=== PATIENT | male | born 1955 | race American Indian/Alaskan Native ===

== ENCOUNTER 2021-04-30 01:16 | Inpatient (IN) | payer MEDICARE ==
[2021-04-30] MEDS ORDERED: SODIUM CHLORIDE 0.9% 1000 ML 1,000 ML IV ONE ×2 (01:48→04:50)
--- NOTE | 2021-04-30 01:51 | Emergency Department Report ---
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 Patient also has history of chronic alcoholism. Patient brought to the emergency room for evaluation of dizziness and possible alcohol intoxication. Patient denied any recent head injury. He denied any chest pain, shortness of breath, abdominal pain, nausea or vomiting. - Related Data Home Medications Medication Instructions Recorded Confirmed Last Taken Aspirin [Aspirin BABY CHEW TAB] 81 mg PO QDAY 03/08/20 03/08/20 Unknown AtorvaSTATin [Lipitor] 20 mg PO QHS 03/08/20 03/08/20 Unknown Chlorthalidone 50 mg PO QDAY 03/08/20 03/08/20 Unknown Ferrous Sulfate [Ferrous Sulfate 324 mg PO TID 03/08/20 03/08/20 Unknown 324 MG] Meloxicam [Mobic] 15 mg PO QDAY PRN 03/08/20 03/08/20 Unknown Tamsulosin [Flomax] 0.4 mg PO QDAY 03/08/20 03/08/20 Unknown amLODIPine 10 mg PO DAILY 03/08/20 03/08/20 Unknown Previous Rx's Medication Instructions Recorded Last Taken Type Folic Acid [Folvite] 1 mg PO QDAY #30 tablet 03/09/20 Unknown Rx Thiamine [Vitamin B-1] 100 mg PO QDAY #30 tablet 03/09/20 Unknown Rx Allergies Allergy/AdvReac Type Severity Reaction Status Date / Time No Known Allergies Allergy Unverified 10/16/18 16:26 ED Review of Systems ROS: Stated complaint: PAIN/HIGH POTASSIUM Other details as noted in HPI Comment: All other systems reviewed and negative Constitutional: denies: chills, fever Respiratory: denies: cough, shortness of breath, SOB with exertion Cardiovascular: denies: chest pain, palpitations Gastrointestinal: denies: abdominal pain, nausea, vomiting Neurological: denies: headache, weakness ED Past Medical Hx - Past Medical History Hx Hypertension: Yes Hx CVA: Yes (R sided deficits) Hx COPD: Yes Additional medical history: enlarged prostate - Surgical History Additional Surgical History: R knee - Social History Smoking Status: Current Every Day Smoker - Medications Home Medications: Home Medications Medication Instructions Recorded Confirmed Last Taken Type Aspirin [Aspirin BABY CHEW TAB] 81 mg PO QDAY 03/08/20 03/08/20 Unknown History AtorvaSTATin [Lipitor] 20 mg PO QHS 03/08/20 03/08/20 Unknown History Chlorthalidone 50 mg PO QDAY 03/08/20 03/08/20 Unknown History Ferrous Sulfate [Ferrous Sulfate 324 mg PO TID 03/08/20 03/08/20 Unknown History 324 MG] Meloxicam [Mobic] 15 mg PO QDAY PRN 03/08/20 03/08/20 Unknown History Tamsulosin [Flomax] 0.4 mg PO QDAY 03/08/20 03/08/20 Unknown History amLODIPine 10 mg PO DAILY 03/08/20 03/08/20 Unknown History Folic Acid [Folvite] 1 mg PO QDAY #30 tablet 03/09/20 Unknown Rx Thiamine [Vitamin B-1] 100 mg PO QDAY #30 tablet 03/09/20 Unknown Rx ED Physical Exam - General Limitations: Physical Limitation General appearance: alert, in no apparent distress, appears intoxicated - Head Head exam: Present: atraumatic, normocephalic, normal inspection - Eye Eye exam: Present: normal appearance, PERRL - ENT ENT exam: Present: normal exam, normal orophraynx, mucous membranes moist - Neck Neck exam: Present: normal inspection, full ROM. Absent: tenderness, meningismus - Respiratory Respiratory exam: Present: normal lung sounds bilaterally - Cardiovascular Cardiovascular Exam: Present: regular rate, normal rhythm, normal heart sounds - GI/Abdominal GI/Abdominal exam: Present: soft, normal bowel sounds. Absent: distended, tenderness, guarding, rebound, rigid, organomegaly, mass, bruit, pulsatile mass, hernia - Back Exam Back exam: Present: normal inspection, full ROM. Absent: CVA tenderness (R), CVA tenderness (L) - Neurological Exam Neurological exam: Present: alert, oriented X3, CN II-XII intact - Psychiatric Psychiatric exam: Present: normal mood. Absent: homicidal ideation, suicidal ideation - Skin Skin exam: Present: warm, intact, normal color ED Course Vital Signs 04/30/21 04/30/21 04/30/21 01:47 02:00 02:30 Pulse Rate 62 50 L Respiratory 17 13 Rate Blood Pressure 101/46 79/46 O2 Sat by Pulse 94 99 100 Oximetry 04/30/21 02:54 Pulse Rate Respiratory 16 Rate Blood Pressure O2 Sat by Pulse Oximetry ED Medical Decision Making - Lab Data Result diagrams: 04/30/21 01:55 04/30/21 01:55 - EKG Data EKG shows normal: sinus rhythm Rate: normal - EKG Data Interpretation: no acute changes - Radiology Data Radiology results: report reviewed - Medical Decision Making Patient is 65 years old male with history of hypertension, 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 Patient also has history of chronic alcoholism. Patient brought to the emergency room for evaluation of dizziness and possible alcohol intoxication. Patient denied any recent head injury. He denied any chest pain, shortness of breath, abdominal pain, nausea or vomiting. Patient had 1 episode of blood pressure of 79/42. Labs reviewed and showed elevated creatinine of 2.2 his previous creatinine was 1.5. This may be due to dehydration. Patient received normal saline at this moment. I discussed the patient with Dr. Garcia, he agreed to admit the patient to medical service for further management. Critical care attestation.: If time is entered above; I have spent that time in minutes in the direct care of this critically ill patient, excluding procedure time. ED Disposition Clinical Impression: Alcohol abuse, Acute renal failure, Dehydration Disposition: OP ADMIT IP TO THIS HOSP Is pt being admited?: Yes Condition: Stable
--- NOTE | 2021-04-30 02:18 | XRay Report ---
CHEST 1 VIEW INDICATION / CLINICAL INFORMATION: Lightheadedness/Dizziness. Impression: The upper lungs are clear. The lower lungs cannot be evaluated secondary to the patient's hands overlying the [id number]. Signer Name: Calos Hernández MD Signed: 04/30/2021 2:14 AM Workstation Name: [id number]
[2021-04-30 02:27] LABS: Basophils % (Auto) 0.7 % (0.0-1.8); Eosinophils # (Auto) 0.1 K/mm3 (0.0-0.4); Eosinophils % (Auto) 1.7 % (0.0-4.3); Hematocrit 29.4 % (35.5-45.6); Hemoglobin 9.7 gm/dl (11.8-15.2); Lymphocytes # (Auto) 1.2 K/mm3 (1.2-5.4); Lymphocytes % (Auto) 20.6 % (13.4-35.0); Mean Corpuscular HGB Conc 33 % (32-34); Mean Corpuscular Volume 84 fl (84-94); Monocytes # (Auto) 0.4 K/mm3 (0.0-0.8); Monocytes % (Auto) 7.7 % (0.0-7.3); Platelet Count 181 K/mm3 (140-440); Red Blood Count 3.53 M/mm3 (3.65-5.03)
[2021-04-30 02:30] LABS: Calcium 8.2 mg/dL (8.4-10.2)
[2021-04-30 02:35] LABS: Alanine Aminotransferase 9 units/L (7-56); Albumin 3.8 g/dL (3.9-5)
[2021-04-30 02:40] LABS: Bilirubin,Direct < 0.2 mg/dL (0-0.2)
[2021-04-30 03:17] LABS: Chol/HDL Ratio 1.74 %
[2021-04-30] MEDS ORDERED: ALUM-MAG HYDROXIDE-SIMETHICONE 200-200-20MG/5ML ORAL LIQD 30 ML PO PRN (05:22)
[2021-04-30] MEDS ORDERED: ONDANSETRON 4 MG/2 ML INJ IV PRN (05:22)
[2021-04-30] MEDS ORDERED: MAGNESIUM HYDROXIDE (MOM) ORAL LIQD UDC PO PRN (05:22)
[2021-04-30] MEDS ORDERED: SENNOSIDES 8.6 MG TAB PO PRN (05:22)
[2021-04-30] MEDS ORDERED: METOCLOPRAMIDE 10 MG/2 ML INJ IV PRN (05:22)
[2021-04-30] MEDS ORDERED: ACETAMINOPHEN 325 MG TAB PO PRN (05:22)
--- NOTE | 2021-04-30 05:34 | History and Physical Report ---
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 Patient also has history of chronic alcoholism. Patient brought to the emergency room for evaluation of dizziness and possible alcohol intoxication. Patient denied any recent head injury. He denied any chest pain, shortness of breath, abdominal pain, nausea or vomiting ED work-up shows WBC 5.6, hemoglobin 9.7 platelets 181, potassium 5.6, creatinine 2.2, sodium 137, calcium 8.2, troponin 0 0.059, albumin 3.8. Checks x-ray done no acute finding. Patient is seen at bedside in the ED patient is alert oriented x3. Patient reports dizziness. Patient denies tobacco use and illicit drug use. Reviewed lab medication record and vital signs. Patient creatinine elevated likely secondary to dehydration due to alcoholism. Patient placed on alcohol withdrawal protocol. IV hydration started including thiamine iron and multivitamin supplement. Photographic Reproduction Technician consulted secondary to acute kidney injury. Renal ultrasound ordered we will follow-up with results. Potassium elevated K oxalate given. Will follow up with potassium level. Past History Past Surgical History: No surgical history Social history: no significant social history Family history: no significant family history Medications and Allergies Allergies Allergy/AdvReac Type Severity Reaction Status Date / Time No Known Allergies Allergy Unverified 10/16/18 16:26 Home Medications Medication Instructions Recorded Confirmed Last Taken Type Aspirin [Aspirin BABY CHEW TAB] 81 mg PO QDAY 03/08/20 03/08/20 Unknown History AtorvaSTATin [Lipitor] 20 mg PO QHS 03/08/20 03/08/20 Unknown History Chlorthalidone 50 mg PO QDAY 03/08/20 03/08/20 Unknown History Ferrous Sulfate [Ferrous Sulfate 324 mg PO TID 03/08/20 03/08/20 Unknown History 324 MG] Meloxicam [Mobic] 15 mg PO QDAY PRN 03/08/20 03/08/20 Unknown History Tamsulosin [Flomax] 0.4 mg PO QDAY 03/08/20 03/08/20 Unknown History amLODIPine 10 mg PO DAILY 03/08/20 03/08/20 Unknown History Folic Acid [Folvite] 1 mg PO QDAY #30 tablet 03/09/20 Unknown Rx Thiamine [Vitamin B-1] 100 mg PO QDAY #30 tablet 03/09/20 Unknown Rx Active Meds: Active Medications Acetaminophen (Acetaminophen 325 Mg Tab) 650 mg PO Q4H PRN PRN Reason: Pain MILD(1-3)/Fever >100.5/GENTILE Al Hydrox/Mg Hydrox/Simethicone (Alum-Mag Hydroxide-Simethicone [id number]/5ml Oral Liqd 30 Ml) 30 ml PO Q4H PRN PRN Reason: Indigestion Sodium Chloride (Nacl 0.9% 1000 Ml) 1,000 mls @ 999 mls/hr IV BOLUS ONE Stop: 04/30/21 05:50 Magnesium Hydroxide (Magnesium Hydroxide (Mom) Oral Liqd Udc) 30 ml PO Q4H PRN PRN Reason: Constipation Metoclopramide HCl (Metoclopramide 10 Mg/2 Ml Inj) 10 mg IV Q6H PRN PRN Reason: Nausea And Vomiting Ondansetron HCl (Ondansetron 4 Mg/2 Ml Inj) 4 mg IV Q8H PRN PRN Reason: Nausea And Vomiting Senna (Sennosides 8.6 Mg Tab) 8.6 mg PO Q12HR PRN PRN Reason: Constipation Sodium Chloride (Sodium Chloride 0.9% 10 Ml Flush Syringe) 10 ml IV BID MISHA Sodium Chloride (Sodium Chloride 0.9% 10 Ml Flush Syringe) 10 ml IV PRN PRN PRN Reason: LINE FLUSH Review of Systems Constitutional: weakness Ears, nose, mouth and throat: no epistaxis, no bleeding gums Cardiovascular: lightheadedness Gastrointestinal: no melena Rectal: no hemorrhoids Integumentary: no rash, no pruritis Neurological: no head injury Psychiatric: anxiety, depression Hematologic/Lymphatic: no easy bruising, no easy bleeding Allergic/Immunologic: no urticaria, no allergic rhinitis Exam - Constitutional Vitals: Temp Pulse Resp BP Pulse Ox 58 L 15 118/60 100 04/30/21 05:00 04/30/21 05:00 04/30/21 05:00 04/30/21 05:00 General appearance: Present: mild distress, well-nourished - EENT Eyes: Present: PERRL ENT: hearing intact, clear oral mucosa - Neck Neck: Present: supple, normal ROM - Respiratory Respiratory effort: normal Respiratory: bilateral: CTA - Cardiovascular Heart Sounds: Present: S1 & S2. Absent: rub, click - Extremities Extremities: pulses symmetrical, No edema Peripheral Pulses: within normal limits - Abdominal General gastrointestinal: Present: soft, non-tender, non-distended, normal bowel sounds Male genitourinary: Present: normal - Integumentary Integumentary: Present: clear, warm, dry - Musculoskeletal Musculoskeletal: strength equal bilaterally, generalized weakness - Psychiatric Psychiatric: appropriate mood/affect, intact judgment & insight, cooperative - Neurologic Neurologic: CNII-XII intact, moves all extremities - Allied Health Allied health notes reviewed: nursing HEART Score - HEART Score Troponin: Troponin T 0.059 ng/mL (0.00-0.029) H 04/30/21 01:55 Results - Labs CBC & Chem 7: 04/30/21 01:55 04/30/21 01:55 Labs: Abnormal lab results 04/30/21 04/30/21 04/30/21 Range/Units 01:55 01:55 01:55 RBC 3.53 L (3.65-5.03) M/mm3 Hgb 9.7 L (11.8-15.2) gm/dl Hct 29.4 L (35.5-45.6) % [place] % (Auto) 7.7 H (0.0-7.3) % Potassium 5.6 H (3.6-5.0) mmol/L BUN 32 H (9-20) mg/dL Creatinine 2.2 H (0.8-1.3) mg/dL Calcium 8.2 L (8.4-10.2) mg/dL Troponin T 0.059 H (0.00-0.029) ng/mL Albumin (3.9-5) g/dL HDL Cholesterol 74 H (40-59) mg/dL Plasma/Serum Alcohol 0.16 H (0-0.07) % 04/30/21 Range/Units 01:55 RBC (3.65-5.03) M/mm3 Hgb (11.8-15.2) gm/dl Hct (35.5-45.6) % [place] % (Auto) (0.0-7.3) % Potassium (3.6-5.0) mmol/L BUN (9-20) mg/dL Creatinine (0.8-1.3) mg/dL Calcium (8.4-10.2) mg/dL Troponin T (0.00-0.029) ng/mL Albumin 3.8 L (3.9-5) g/dL HDL Cholesterol (40-59) mg/dL Plasma/Serum Alcohol (0-0.07) % Assessment and Plan - Patient Problems (1) Acute renal failure Current Visit: Yes Status: Acute Plan to address problem: Monitor Kidney function Continue IV hydration Renal US-f/u with result Consulted roller operator-Dr Alarcon (2) Dehydration Current Visit: Yes Status: Acute Plan to address problem: Likely 2/2 to alcohol use Continue IV hydration (3) Anemia Current Visit: Yes Status: Acute Plan to address problem: Monitor H/H will transfused PRBCs if H/H <7 iron and MVI supplement (4) Hyperkalemia Current Visit: No Status: Acute Plan to address problem: Kayexalate Monitor potassium level (5) Alcohol abuse Current Visit: Yes Status: Acute Plan to address problem: Continue CIWA protocol Ferrous, thiamin, and MVI supplement Will start [place] and d/c oral supplement if needed Patient alert and oriented but irritable presently (6) DVT prophylaxis Current Visit: Yes Status: Acute Plan to address problem: heparin
[2021-04-30] MEDS ORDERED: HALOPERIDOL LACTATE 5 MG/1 ML INJ IV PRN (06:07)
[2021-04-30] MEDS ORDERED: LORazepam 2 MG/ML VIAL IV PRN (06:07)
[2021-04-30] MEDS ORDERED: SODIUM POLYSTYRENE 15 GM/60 ML ORAL LIQD PO ONE (06:13)
[2021-04-30] MEDS ORDERED: SODIUM CHLORIDE 0.9% 1000 ML 1,000 ML IV SCH (06:15)
[2021-04-30 08:47] LABS: Calcium 8.2 mg/dL (8.4-10.2)
--- NOTE | 2021-04-30 09:19 | Consultation ---
History of Present Illness - Reason for Consult Consult date: 04/30/21 acute renal failure, hyperkalemia - History of Present Illness The patient is a 65 YO male with history significant for Hypertension, CVA in 1994 with residual R sided weakness, Tobacco use, Alcohol use and CKD stage 3 who brought to [facility] ED 04/30 for evaluation of dizziness and possible alcohol intoxication. Patient is a poor historian. Per patient he has been feeling dizzy and about to fall. He denies any head injury, syncope, chest pain, shortness of breath, abdominal pain, nausea, vomiting, diarrhea, leg swelling, fever or chills. ED work-up showed WBC 5.6, Hb 9.7 Platelets 181, Potassium 5.6, Creatinine 2.2, sodium 137, calcium 8.2, troponin 0 0.059, albumin 3.8. Alcohol level 0.16. Chest x-ray with no acute finding. Patient was admitted with alcohol intoxication, JUAN and hyperkalemia. Nephrology was consulted for further evaluation of acute kidney injury. Past History Past Medical History: other (See HPI.) Past Surgical History: No surgical history Social history: no significant social history Family history: no significant family history Medications and Allergies Allergies Allergy/AdvReac Type Severity Reaction Status Date / Time No Known Allergies Allergy Unverified 10/16/18 16:26 Home Medications Medication Instructions Recorded Confirmed Last Taken Type Aspirin [Aspirin BABY CHEW TAB] 81 mg PO QDAY 03/08/20 04/30/21 1 Day Ago History ~04/29/21 AtorvaSTATin [Lipitor] 20 mg PO QHS 03/08/20 04/30/21 1 Day Ago History ~04/29/21 Chlorthalidone 50 mg PO QDAY 03/08/20 04/30/21 1 Day Ago History ~04/29/21 Ferrous Sulfate [Ferrous Sulfate 324 mg PO TID 03/08/20 04/30/21 1 Day Ago History 324 MG] ~04/29/21 Tamsulosin [Flomax] 0.4 mg PO QDAY 03/08/20 04/30/21 1 Day Ago History ~04/29/21 amLODIPine 10 mg PO DAILY 03/08/20 04/30/21 1 Day Ago History ~04/29/21 Folic Acid [Folvite] 1 mg PO QDAY #30 tablet 03/09/20 04/30/21 1 Day Ago Rx ~04/29/21 Thiamine [Vitamin B-1] 100 mg PO QDAY #30 tablet 03/09/20 04/30/21 1 Day Ago Rx ~04/29/21 Active Meds: Active Medications Acetaminophen (Acetaminophen 325 Mg Tab) 650 mg PO Q4H PRN PRN Reason: Pain MILD(1-3)/Fever >100.5/GENTILE Al Hydrox/Mg Hydrox/Simethicone (Alum-Mag Hydroxide-Simethicone [id number]/5ml Oral Liqd 30 Ml) 30 ml PO Q4H PRN PRN Reason: Indigestion Ferrous Sulfate (Ferrous Sulfate 325 Mg Tab) 325 mg PO BID MISHA Haloperidol Lactate (Haloperidol Lactate 5 Mg/1 Ml Inj) 5 mg IV Q1H PRN PRN Reason: Unrespon. to mult. doses BZD's Heparin Sodium (Porcine) (Heparin 5,000 Unit/1 Ml Vial) 5,000 unit SUB-Q Q12HR MISHA Sodium Chloride (Nacl 0.9% 1000 Ml) 1,000 mls @ 100 mls/hr IV DIRECT MISHA Lorazepam (Lorazepam 2 Mg/Ml Vial) 2 mg IV Q1H PRN PRN Reason: CIWA-Ar 8-15 Magnesium Hydroxide (Magnesium Hydroxide (Mom) Oral Liqd Udc) 30 ml PO Q4H PRN PRN Reason: Constipation Metoclopramide HCl (Metoclopramide 10 Mg/2 Ml Inj) 5 mg IV Q6H PRN PRN Reason: Nausea And Vomiting Multivitamins (Multivitamins ,Therapeutic Tab) 1 each PO QDAY [facility] Ondansetron HCl (Ondansetron 4 Mg/2 Ml Inj) 4 mg IV Q8H PRN PRN Reason: Nausea And Vomiting Senna (Sennosides 8.6 Mg Tab) 8.6 mg PO Q12HR PRN PRN Reason: Constipation Sodium Chloride (Sodium Chloride 0.9% 10 Ml Flush Syringe) 10 ml IV BID MISHA Sodium Chloride (Sodium Chloride 0.9% 10 Ml Flush Syringe) 10 ml IV PRN PRN PRN Reason: LINE FLUSH Thiamine HCl (Thiamine 100 Mg Tab) 100 mg PO QDAY [facility] Review of Systems Constitutional: weight loss, no fever, no chills, no weakness Cardiovascular: lightheadedness, high blood pressure, no chest pain, no edema, no syncope, no shortness of breath Respiratory: no cough Gastrointestinal: no abdominal pain, no nausea, no vomiting, no diarrhea, no melena Genitourinary Male: no dysuria, no hematuria Integumentary: no sores, no wounds Neurological: weakness (chronic), no seizures, no syncope, no convulsions, no aphasia, no change in speech, no change in mentation, no confusion Exam - Vital Signs Vital signs: Vital Signs Pulse Ox 94 04/30/21 01:47 Results - Lab Results 04/30/21 01:55 04/30/21 01:55 Most recent lab results Calcium 8.2 mg/dL (8.4-10.2) L 04/30/21 08:16 Phosphorus 3.80 mg/dL (2.5-4.5) 04/30/21 08:16 Magnesium 1.40 mg/dL (1.7-2.3) L 04/30/21 08:16 Assessment and Plan 1. Acute kidney injury: Vasomotor JUAN superimposed on CKD in the setting of volume depletion. Renal US negative. Urine studies ordered. Continue IV fluids. Monitor renal function. Avoid nephrotoxic agents. Meds dosage based on GFR. 2. FEN: Hyperkalemia, Kayexalate, monitor. Monitor lytes and volume status. 3. Alcohol intoxication: IV fluids. Follow lytes. CIWA protocol. Counseling. 4. Hypertension: BP controlled. 5. Anemia, POA: Monitor. 6. Tobacco smoking: Counseled. Subjective: Patient was seen and examined at the bedside. Examination: General appearance: well-developed, appears stated age, emaciated, no distress HEENT: ATNC, ASHLEE Neck: trachea midline Respiratory: Clear to Auscultation Heart: regular, S1S2, no murmur Gastrointestinal: soft, normoactive bowel sounds, not tender, not distended Integumentary: no rash Neurologic: alert, able to move extremities, extensive muscle wasting noted Ext: no edema
--- NOTE | 2021-04-30 09:20 | Progress Note ---
Assessment and Plan Assessment and plan: Acute renal failure secondary to vasomotor nephropathy Hyperkalemia EtOH abuse 04/30/2021. Follow-up renal ultrasound. Await nephrology consultation. Continue IV fluid hydration. Continue CIWA protocol. History Interval history: No new issues overnight Hospitalist Physical - Constitutional Vitals: Temp Pulse Resp BP Pulse Ox 56 L 12 103/57 100 04/30/21 07:38 04/30/21 07:38 04/30/21 07:00 04/30/21 07:38 General appearance: Present: mild distress, well-nourished - EENT Eyes: Present: PERRL, EOM intact ENT: hearing intact, clear oral mucosa, dentition normal - Neck Neck: Present: supple, normal ROM - Respiratory Respiratory effort: normal Respiratory: bilateral: CTA - Cardiovascular Rhythm: regular Heart Sounds: Present: S1 & S2. Absent: gallop, rub - Extremities Extremities: no ischemia, No edema, Full ROM - Abdominal General gastrointestinal: soft, non-tender, non-distended, normal bowel sounds - Integumentary Integumentary: Present: clear, warm, dry - Neurologic Neurologic: CNII-XII intact, moves all extremities HEART Score - HEART Score Troponin: Troponin T 0.059 ng/mL (0.00-0.029) H 04/30/21 01:55 Results - Labs CBC & Chem 7: 04/30/21 01:55 04/30/21 01:55 Labs: Laboratory Last Values WBC 5.6 K/mm3 (4.5-11.0) 04/30/21 01:55 RBC 3.53 M/mm3 (3.65-5.03) L 04/30/21 01:55 Hgb 9.7 gm/dl (11.8-15.2) L 04/30/21 01:55 Hct 29.4 % (35.5-45.6) L 04/30/21 01:55 MCV 84 fl (84-94) 04/30/21 01:55 MCH 28 pg (28-32) 04/30/21 01:55 MCHC 33 % (32-34) 04/30/21 01:55 RDW 15.0 % (13.2-15.2) 04/30/21 01:55 Plt Count 181 K/mm3 (140-440) 04/30/21 01:55 Lymph % (Auto) 20.6 % (13.4-35.0) 04/30/21 01:55 [place] % (Auto) 7.7 % (0.0-7.3) H 04/30/21 01:55 Eos % (Auto) 1.7 % (0.0-4.3) 04/30/21 01:55 Baso % (Auto) 0.7 % (0.0-1.8) 04/30/21 01:55 Lymph # (Auto) 1.2 K/mm3 (1.2-5.4) 04/30/21 01:55 [place] # (Auto) 0.4 K/mm3 (0.0-0.8) 04/30/21 01:55 Eos # (Auto) 0.1 K/mm3 (0.0-0.4) 04/30/21 01:55 Baso # (Auto) 0.0 K/mm3 (0.0-0.1) 04/30/21 01:55 Seg Neutrophils % 69.3 % (40.0-70.0) 04/30/21 01:55 Seg Neutrophils # 3.9 K/mm3 (1.8-7.7) 04/30/21 01:55 Sodium 137 mmol/L (137-145) 04/30/21 01:55 Potassium 5.6 mmol/L (3.6-5.0) H 04/30/21 01:55 Chloride 105.1 mmol/L (98-107) 04/30/21 01:55 Carbon Dioxide 23 mmol/L (22-30) 04/30/21 01:55 Anion Gap 15 mmol/L 04/30/21 01:55 BUN 32 mg/dL (9-20) H 04/30/21 01:55 Creatinine 2.2 mg/dL (0.8-1.3) H 04/30/21 01:55 Estimated GFR 37 ml/min 04/30/21 01:55 BUN/Creatinine Ratio 15 % 04/30/21 01:55 Glucose 99 mg/dL (75-100) 04/30/21 01:55 Hemoglobin A1c 5.9 % (4-6) 04/30/21 05:35 Calcium 8.2 mg/dL (8.4-10.2) L 04/30/21 08:16 Phosphorus 3.80 mg/dL (2.5-4.5) 04/30/21 08:16 Magnesium 1.40 mg/dL (1.7-2.3) L 04/30/21 08:16 Total Bilirubin 0.20 mg/dL (0.1-1.2) 04/30/21 01:55 Direct Bilirubin < 0.2 mg/dL (0-0.2) 04/30/21 01:55 Indirect Bilirubin 0.0 mg/dL 04/30/21 01:55 AST 17 units/L (5-40) 04/30/21 01:55 ALT 9 units/L (7-56) 04/30/21 01:55 Alkaline Phosphatase 80 units/L (35-129) 04/30/21 01:55 Troponin T 0.059 ng/mL (0.00-0.029) H 04/30/21 01:55 Total Protein 7.0 g/dL (6.3-8.2) 04/30/21 01:55 Albumin 3.8 g/dL (3.9-5) L 04/30/21 01:55 Albumin/Globulin Ratio 1.2 % 04/30/21 01:55 Triglycerides 114 mg/dL (2-149) 04/30/21 01:55 Cholesterol 129 mg/dL (50-199) 04/30/21 01:55 LDL Cholesterol Direct 51 mg/dL (50-130) 04/30/21 01:55 HDL Cholesterol 74 mg/dL (40-59) H 04/30/21 01:55 Cholesterol/HDL Ratio 1.74 % 04/30/21 01:55 Plasma/Serum Alcohol 0.16 % (0-0.07) H 04/30/21 01:55 Active Medications - Current Medications Current Medications: Generic Name Dose Route Start Last Admin Trade Name Freq PRN Reason Stop Dose Admin Acetaminophen 650 mg 04/30/21 05:22 Acetaminophen 325 Mg Tab PO Q4H PRN Pain MILD(1-3)/Fever >100.5/GENTILE Al Hydrox/Mg Hydrox/Simethicone 30 ml 04/30/21 05:22 Alum-Mag Hydroxide-Simethicone [id number]/5ml Oral Liqd 30 Ml PO Q4H PRN Indigestion Ferrous Sulfate 325 mg 04/30/21 10:00 Ferrous Sulfate 325 Mg Tab PO BID [facility] Haloperidol Lactate 5 mg 04/30/21 06:07 Haloperidol Lactate 5 Mg/1 Ml Inj IV Q1H PRN Unrespon. to mult. doses BZD's Heparin Sodium (Porcine) 5,000 unit 04/30/21 10:00 Heparin 5,000 Unit/1 Ml Vial SUB-Q Q12HR [facility] Sodium Chloride 1,000 mls @ 100 mls/hr 04/30/21 06:15 Nacl 0.9% 1000 Ml IV DIRECT MISHA Lorazepam 2 mg 04/30/21 06:07 Lorazepam 2 Mg/Ml Vial IV Q1H PRN CIWA-Ar 8-15 Magnesium Hydroxide 30 ml 04/30/21 05:22 Magnesium Hydroxide (Mom) Oral Liqd Udc PO Q4H PRN Constipation Metoclopramide HCl 5 mg 04/30/21 05:22 Metoclopramide 10 Mg/2 Ml Inj IV Q6H PRN Nausea And Vomiting Multivitamins 1 each 04/30/21 10:00 Multivitamins ,Therapeutic Tab PO QDAY [facility] Ondansetron HCl 4 mg 04/30/21 05:22 Ondansetron 4 Mg/2 Ml Inj IV Q8H PRN Nausea And Vomiting Senna 8.6 mg 04/30/21 05:22 Sennosides 8.6 Mg Tab PO Q12HR PRN Constipation Sodium Chloride 10 ml 04/30/21 10:00 Sodium Chloride 0.9% 10 Ml Flush Syringe IV BID MISHA Sodium Chloride 10 ml 04/30/21 05:22 Sodium Chloride 0.9% 10 Ml Flush Syringe IV PRN PRN LINE FLUSH Thiamine HCl 100 mg 04/30/21 10:00 Thiamine 100 Mg Tab PO QDAY [facility]
[2021-04-30] MEDS ORDERED: MAGNESIUM SULFATE 2 GM/50 ML BAG IV ONE (11:00)
--- NOTE | 2021-04-30 13:22 | Electrocardiograph Report ---
[facility] Test Date: 2021-04-30 Test Time: 02:15:07 Pat Name: ROXI MURILLO Department: Room: A489 Gender: M Communications Technologist: PETRA : 1955 Requested By: SUKH AVALOS Order Number: [id number] Reading MD: Felice Lorenzo Measurements Intervals [place] Rate: 57 P: SC: QRS: 72 QRSD: 83 T: 84 QT: 466 QTc: 456 Interpretive Statements Atrial fibrillation Consider left ventricular hypertrophy Nonspecific T abnormalities, lateral leads ST elevation, consider lateral injury No previous ECG available for comparison Electronically Signed On 04-30-2021 13:21:37 EDT by Felice Lorenzo
[2021-04-30] MEDS: MULTIVITAMINS ,THERAPEUTIC TAB PO SCH (18:16)
[2021-04-30] MEDS: HEPARIN 5,000 UNIT/1 ML VIAL SUB-Q SCH ×2 (18:16→21:12)
[2021-04-30] MEDS: FERROUS SULFATE 325 MG TAB PO SCH ×2 (18:16→21:12)
[2021-04-30] MEDS: THIAMINE 100 MG TAB PO SCH (18:17)
--- NOTE | 2021-04-30 20:45 | Ultrasound Report ---
ULTRASOUND RENAL INDICATION: maria elena. COMPARISON: No relevant prior imaging study available. FINDINGS: RIGHT KIDNEY: Size: 7.9 cm. Echogenicity: Echogenic. Cortical thickness: 0.9. Hydronephrosis: None. Cyst or mass: None. Stones: None. LEFT KIDNEY: Size: 8.5 cm. Echogenicity: Echogenic. Cortical thickness: 1.1. Hydronephrosis: None. Cyst or mass: None. Stones: None. Urinary Bladder: No significant abnormality. Free Fluid: None. Additional Findings: None. IMPRESSION 1. Small echogenic kidneys characteristic for chronic medical renal disease. No hydronephrosis. Signer Name: Mendel Luna MD Signed: 04/30/2021 8:41 PM Workstation Name: [id number]
[2021-04-30 21:51] LABS: Bilirubin,Urine NEG (Negative); Blood,Urine NEG (Negative); Color,Urine Yellow (Yellow); Protein,Urine <15 mg/dL mg/dL (Negative); Urobilinogen,Urine < 2.0 mg/dL (<2.0)
[2021-04-30 21:52] LABS: Creatinine,Urine 68.8 mg/dL (0.1-20.0)
[2021-04-30 21:56] LABS: Amphetamine Screen,Urine PRESUMPTIVE NEGATIVE; Benzodiazepines Screen,Urine PRESUMPTIVE NEGATIVE; Cannabinoid Screen,Urine PRESUMPTIVE POSITIVE; Cocaine Screen,Urine PRESUMPTIVE NEGATIVE; Methadone Screen,Urine PRESUMPTIVE NEGATIVE; Opiate Screen,Urine PRESUMPTIVE NEGATIVE
[2021-05-01 06:11] LABS: Hemoglobin 9.9 gm/dl (11.8-15.2); Mean Corpuscular HGB Conc 34 % (32-34); Mean Corpuscular Volume 82 fl (84-94); Platelet Count 160 K/mm3 (140-440); Red Blood Count 3.55 M/mm3 (3.65-5.03); Red Cell Distribution Width 14.8 % (13.2-15.2)
[2021-05-01 06:36] LABS: Alanine Aminotransferase 7 units/L (7-56); Albumin 3.1 g/dL (3.9-5)
[2021-05-01 06:37] LABS: Bilirubin,Direct < 0.2 mg/dL (0-0.2)
[2021-05-01 07:44] LABS: Albumin 3.1 g/dL (3.9-5); Calcium 8.9 mg/dL (8.4-10.2)
--- NOTE | 2021-05-01 08:28 | Progress Note ---
Assessment and Plan Assessment and plan: Acute kidney injury on CKD secondary to vasomotor nephropathy Hyperkalemia EtOH abuse 04/30/2021. Follow-up renal ultrasound. Await nephrology consultation. Continue IV fluid hydration. Continue CIWA protocol. 05/01/2021. Renal ultrasound negative. Follow-up urine studies. Continue IV fluids per nephrology recommendations. Creatinine has improved to 1.5. Continue CIWA protocol. However, patient still with hyperkalemia with potassium of 6.1. Nephrology ordered Kayexalate. Follow-up repeat BMP. History Interval history: No new issues overnight Hospitalist Physical - Constitutional Vitals: Temp Pulse Resp BP Pulse Ox 98.2 F 59 L 16 126/70 94 05/01/21 05:03 05/01/21 07:37 05/01/21 05:03 05/01/21 05:03 05/01/21 05:03 General appearance: Present: mild distress, well-nourished - EENT Eyes: Present: PERRL, EOM intact ENT: hearing intact, clear oral mucosa, dentition normal - Neck Neck: Present: supple, normal ROM - Respiratory Respiratory effort: normal Respiratory: bilateral: CTA - Cardiovascular Rhythm: regular Heart Sounds: Present: S1 & S2. Absent: gallop, rub - Extremities Extremities: no ischemia, No edema, Full ROM - Abdominal General gastrointestinal: soft, non-tender, non-distended, normal bowel sounds - Integumentary Integumentary: Present: clear, warm, dry - Neurologic Neurologic: CNII-XII intact, moves all extremities HEART Score - HEART Score Troponin: Troponin T 0.059 ng/mL (0.00-0.029) H 04/30/21 01:55 Results - Labs CBC & Chem 7: 05/01/21 05:46 05/01/21 05:46 Labs: Laboratory Last Values WBC 6.5 K/mm3 (4.5-11.0) 05/01/21 05:46 RBC 3.55 M/mm3 (3.65-5.03) L 05/01/21 05:46 Hgb 9.9 gm/dl (11.8-15.2) L 05/01/21 05:46 Hct 29.0 % (35.5-45.6) L 05/01/21 05:46 MCV 82 fl (84-94) L 05/01/21 05:46 MCH 28 pg (28-32) 05/01/21 05:46 MCHC 34 % (32-34) 05/01/21 05:46 RDW 14.8 % (13.2-15.2) 05/01/21 05:46 Plt Count 160 K/mm3 (140-440) 05/01/21 05:46 Lymph % (Auto) 20.6 % (13.4-35.0) 04/30/21 01:55 Morrison % (Auto) 7.7 % (0.0-7.3) H 04/30/21 01:55 Eos % (Auto) 1.7 % (0.0-4.3) 04/30/21 01:55 Baso % (Auto) 0.7 % (0.0-1.8) 04/30/21 01:55 Lymph # (Auto) 1.2 K/mm3 (1.2-5.4) 04/30/21 01:55 Morrison # (Auto) 0.4 K/mm3 (0.0-0.8) 04/30/21 01:55 Eos # (Auto) 0.1 K/mm3 (0.0-0.4) 04/30/21 01:55 Baso # (Auto) 0.0 K/mm3 (0.0-0.1) 04/30/21 01:55 Seg Neutrophils % 69.3 % (40.0-70.0) 04/30/21 01:55 Seg Neutrophils # 3.9 K/mm3 (1.8-7.7) 04/30/21 01:55 Sodium 135 mmol/L (137-145) L 05/01/21 05:46 Potassium 5.6 mmol/L (3.6-5.0) H 04/30/21 01:55 Chloride 104.9 mmol/L (98-107) 05/01/21 05:46 Carbon Dioxide 25 mmol/L (22-30) 05/01/21 05:46 Anion Gap 11 mmol/L 05/01/21 05:46 BUN 27 mg/dL (9-20) H 05/01/21 05:46 Creatinine 1.5 mg/dL (0.8-1.3) H 05/01/21 05:46 Estimated GFR 57 ml/min 06/28/21 05:46 BUN/Creatinine Ratio 18 % 05/01/21 05:46 Glucose 79 mg/dL (75-100) 05/01/21 05:46 Hemoglobin A1c 5.9 % (4-6) 04/30/21 05:35 Calcium 8.9 mg/dL (8.4-10.2) 05/01/21 05:46 Phosphorus 3.80 mg/dL (2.5-4.5) 04/30/21 08:16 Magnesium 1.60 mg/dL (1.7-2.3) L 05/01/21 05:46 Total Bilirubin 0.30 mg/dL (0.1-1.2) 05/01/21 05:46 Total Bilirubin 0.30 mg/dL (0.1-1.2) 05/01/21 05:46 Direct Bilirubin < 0.2 mg/dL (0-0.2) 05/01/21 05:46 Indirect Bilirubin 0.1 mg/dL 05/01/21 05:46 AST 14 units/L (5-40) 05/01/21 05:46 AST 15 units/L (5-40) 05/01/21 05:46 ALT 7 units/L (7-56) 05/01/21 05:46 ALT 9 units/L (7-56) 05/01/21 05:46 Alkaline Phosphatase 79 units/L (35-129) 05/01/21 05:46 Alkaline Phosphatase 80 units/L (35-129) 05/01/21 05:46 Troponin T 0.059 ng/mL (0.00-0.029) H 04/30/21 01:55 Total Protein 6.2 g/dL (6.3-8.2) L 05/01/21 05:46 Total Protein 6.6 g/dL (6.3-8.2) 05/01/21 05:46 Albumin 3.1 g/dL (3.9-5) L 05/01/21 05:46 Albumin 3.1 g/dL (3.9-5) L 05/01/21 05:46 Albumin/Globulin Ratio 0.9 % 05/01/21 05:46 Albumin/Globulin Ratio 1.0 % 05/01/21 05:46 Triglycerides 114 mg/dL (2-149) 04/30/21 01:55 Cholesterol 129 mg/dL (50-199) 04/30/21 01:55 LDL Cholesterol Direct 51 mg/dL (50-130) 04/30/21 01:55 HDL Cholesterol 74 mg/dL (40-59) H 04/30/21 01:55 Cholesterol/HDL Ratio 1.74 % 04/30/21 01:55 Urine Color Yellow (Yellow) 04/30/21 21:37 Urine Turbidity Clear (Clear) 04/30/21 21:37 Urine pH 7.0 (5.0-7.0) 04/30/21 21:37 Ur Specific [place] 1.011 (1.003-1.030) 04/30/21 21:37 Urine Protein <15 mg/dl mg/dL (Negative) 04/30/21 21:37 Urine Glucose (UA) Neg mg/dL (Negative) 04/30/21 21:37 Urine Ketones Neg mg/dL (Negative) 04/30/21 21:37 Urine Blood Neg (Negative) 04/30/21 21:37 Urine Nitrite Neg (Negative) 04/30/21 21:37 Urine Bilirubin Neg (Negative) 04/30/21 21:37 Urine Urobilinogen < 2.0 mg/dL (<2.0) 04/30/21 21:37 Ur Leukocyte Esterase Neg (Negative) 04/30/21 21:37 Urine WBC (Auto) 2.0 /HPF (0.0-6.0) 04/30/21 21:37 Urine RBC (Auto) 1.0 /HPF (0.0-6.0) 04/30/21 21:37 U Epithel Cells (Auto) < 1.0 /HPF (0-13.0) 04/30/21 21:37 Urine Creatinine 68.8 mg/dL (0.1-20.0) H 04/30/21 21:10 Urine Sodium 181 mmol/L 04/30/21 21:10 Urine Opiates Screen Presumptive negative 04/30/21 21:37 Urine Methadone Screen Presumptive negative 04/30/21 21:37 Ur Barbiturates Screen Presumptive negative 04/30/21 21:37 Ur Phencyclidine Scrn Presumptive negative 04/30/21 21:37 Ur Amphetamines Screen Presumptive negative 04/30/21 21:37 U Benzodiazepines Scrn Presumptive negative 04/30/21 21:37 Urine Cocaine Screen Presumptive negative 04/30/21 21:37 U Marijuana (THC) Screen Presumptive positive 04/30/21 21:37 Drugs of Abuse Note Disclamer 04/30/21 21:37 Plasma/Serum Alcohol 0.16 % (0-0.07) H 04/30/21 01:55 Samuels/IV: Voiding Method Urinal Active Medications - Current Medications Current Medications: Generic Name Dose Route Start Last Admin Trade Name Freq PRN Reason Stop Dose Admin Acetaminophen 650 mg 04/30/21 05:22 Acetaminophen 325 Mg Tab PO Q4H PRN Pain MILD(1-3)/Fever >100.5/GENTILE Al Hydrox/Mg Hydrox/Simethicone 30 ml 04/30/21 05:22 Alum-Mag Hydroxide-Simethicone [phone]/5ml Oral Liqd 30 Ml PO Q4H PRN Indigestion Ferrous Sulfate 325 mg 04/30/21 10:00 04/30/21 21:12 Ferrous Sulfate 325 Mg Tab PO 325 mg BID MISHA Administration Haloperidol Lactate 5 mg 04/30/21 06:07 Haloperidol Lactate 5 Mg/1 Ml Inj IV Q1H PRN Unrespon. to mult. doses BZD's Heparin Sodium (Porcine) 5,000 unit 04/30/21 10:00 04/30/21 21:12 Heparin 5,000 Unit/1 Ml Vial SUB-Q 5,000 unit Q12HR MISHA Administration Sodium Chloride 1,000 mls @ 100 mls/hr 04/30/21 06:15 05/01/21 07:13 Nacl 0.9% 1000 Ml IV 100 mls/hr DIRECT MISHA Administration Lorazepam 2 mg 04/30/21 06:07 Lorazepam 2 Mg/Ml Vial IV Q1H PRN CIWA-Ar 8-15 Magnesium Hydroxide 30 ml 04/30/21 05:22 Magnesium Hydroxide (Mom) Oral Liqd Udc PO Q4H PRN Constipation Metoclopramide HCl 5 mg 04/30/21 05:22 Metoclopramide 10 Mg/2 Ml Inj IV Q6H PRN Nausea And Vomiting Multivitamins 1 each 04/30/21 10:00 04/30/21 18:16 Multivitamins ,Therapeutic Tab PO Not Given QDAY MISHA Ondansetron HCl 4 mg 04/30/21 05:22 Ondansetron 4 Mg/2 Ml Inj IV Q8H PRN Nausea And Vomiting Senna 8.6 mg 04/30/21 05:22 Sennosides 8.6 Mg Tab PO Q12HR PRN Constipation Sodium Chloride 10 ml 04/30/21 10:00 04/30/21 21:42 Sodium Chloride 0.9% 10 Ml Flush Syringe IV 10 ml BID MISHA Administration Sodium Chloride 10 ml 04/30/21 05:22 Sodium Chloride 0.9% 10 Ml Flush Syringe IV PRN PRN LINE FLUSH Thiamine HCl 100 mg 04/30/21 10:00 04/30/21 18:17 Thiamine 100 Mg Tab PO Not Given QDAY MISHA
[2021-05-01] MEDS ORDERED: INSULIN REGULAR, HUMAN 100 UNITS/1 ML IV NR (08:31)
[2021-05-01] MEDS ORDERED: DEXTROSE 50% IN WATER (25GM) 50 ML VIAL IV NR (08:31)
[2021-05-01] MEDS ORDERED: SODIUM POLYSTYRENE 15 GM/60 ML ORAL LIQD PO NR (08:31)
--- NOTE | 2021-05-01 08:31 | Progress Note ---
Assessment and Plan 1. Acute kidney injury: Vasomotor JUAN superimposed on CKD in the setting of volume depletion. Renal US negative. Likely ATN. Continue IV fluids. Monitor renal function. Creatinine level is improving. Avoid nephrotoxic agents. Meds dosage based on GFR. 2. FEN: Hyperkalemia, meds ordered, monitor. IV fluids changed to D5 NS. Monitor lytes and volume status. 3. Alcohol intoxication: IV fluids. Follow lytes. [place] protocol. Counseling. 4. Hypertension: BP controlled. 5. Anemia, POA: Monitor. 6. Tobacco smoking: Counseled. Subjective: Patient was seen and examined at the bedside. Doing ok. Examination: General appearance: well-developed, appears stated age, emaciated, no distress HEENT: ATNC, ASHLEE Neck: trachea midline Respiratory: Clear to Auscultation Heart: regular, S1S2, no murmur Gastrointestinal: soft, normoactive bowel sounds, not tender, not distended Integumentary: no rash Neurologic: alert, able to move extremities, extensive muscle wasting noted Ext: no edema Subjective Date of service: 05/01/21 Objective - Vital Signs Vital signs: Vital Signs - 12hr 04/30/21 05/01/21 05/01/21 22:53 05:03 07:37 Temperature 98.1 F 98.2 F Pulse Rate 62 70 59 L Respiratory 16 16 Rate Blood Pressure 124/62 Blood Pressure 126/70 [Right] O2 Sat by Pulse 97 94 Oximetry 05/01/21 07:52 Temperature 98.1 F Pulse Rate 57 L Respiratory 16 Rate Blood Pressure 133/65 Blood Pressure [Right] O2 Sat by Pulse 100 Oximetry - Lab 05/01/21 05:46 05/01/21 05:46 Most recent lab results Calcium 8.9 mg/dL (8.4-10.2) 05/01/21 05:46 Phosphorus 3.80 mg/dL (2.5-4.5) 04/30/21 08:16 Magnesium 1.60 mg/dL (1.7-2.3) L 05/01/21 05:46 Urine Creatinine 68.8 mg/dL (0.1-20.0) H 04/30/21 21:10 Urine Sodium 181 mmol/L 04/30/21 21:10 Medications & Allergies - Medications Allergies/Adverse Reactions: Allergies No Known Allergies Allergy (Unverified 10/16/18 16:26) Home Medications: Home Medications Medication Instructions Recorded Confirmed Last Taken Type Aspirin [Aspirin BABY CHEW TAB] 81 mg PO QDAY 03/08/20 04/30/21 1 Day Ago History ~04/29/21 AtorvaSTATin [Lipitor] 20 mg PO QHS 03/08/20 04/30/21 1 Day Ago History ~04/29/21 Chlorthalidone 50 mg PO QDAY 03/08/20 04/30/21 1 Day Ago History ~04/29/21 Ferrous Sulfate [Ferrous Sulfate 324 mg PO TID 03/08/20 04/30/21 1 Day Ago History 324 MG] ~04/29/21 Tamsulosin [Flomax] 0.4 mg PO QDAY 03/08/20 04/30/21 1 Day Ago History ~04/29/21 amLODIPine 10 mg PO DAILY 03/08/20 04/30/21 1 Day Ago History ~04/29/21 Folic Acid [Folvite] 1 mg PO QDAY #30 tablet 03/09/20 04/30/21 1 Day Ago Rx ~04/29/21 Thiamine [Vitamin B-1] 100 mg PO QDAY #30 tablet 03/09/20 04/30/21 1 Day Ago Rx ~04/29/21 Active Medications: Generic Name Dose Route Start Last Admin Trade Name Freq PRN Reason Stop Dose Admin Acetaminophen 650 mg 04/30/21 05:22 Acetaminophen 325 Mg Tab PO Q4H PRN Pain MILD(1-3)/Fever >100.5/GENTILE Al Hydrox/Mg Hydrox/Simethicone 30 ml 04/30/21 05:22 Alum-Mag Hydroxide-Simethicone 480-161-56ph/5ml Oral Liqd 30 Ml PO Q4H PRN Indigestion Ferrous Sulfate 325 mg 04/30/21 10:00 04/30/21 21:12 Ferrous Sulfate 325 Mg Tab PO 325 mg BID MISHA Administration Haloperidol Lactate 5 mg 04/30/21 06:07 Haloperidol Lactate 5 Mg/1 Ml Inj IV Q1H PRN Unrespon. to mult. doses BZD's Heparin Sodium (Porcine) 5,000 unit 04/30/21 10:00 04/30/21 21:12 Heparin 5,000 Unit/1 Ml Vial SUB-Q 5,000 unit Q12HR MISHA Administration Sodium Chloride 1,000 mls @ 100 mls/hr 04/30/21 06:15 05/01/21 07:13 Nacl 0.9% 1000 Ml IV 100 mls/hr DIRECT MISHA Administration Lorazepam 2 mg 04/30/21 06:07 Lorazepam 2 Mg/Ml Vial IV Q1H PRN CIWA-Ar 8-15 Magnesium Hydroxide 30 ml 04/30/21 05:22 Magnesium Hydroxide (Mom) Oral Liqd Udc PO Q4H PRN Constipation Metoclopramide HCl 5 mg 04/30/21 05:22 Metoclopramide 10 Mg/2 Ml Inj IV Q6H PRN Nausea And Vomiting Multivitamins 1 each 04/30/21 10:00 04/30/21 18:16 Multivitamins ,Therapeutic Tab PO Not Given QDAY [facility] Ondansetron HCl 4 mg 04/30/21 05:22 Ondansetron 4 Mg/2 Ml Inj IV Q8H PRN Nausea And Vomiting Senna 8.6 mg 04/30/21 05:22 Sennosides 8.6 Mg Tab PO Q12HR PRN Constipation Sodium Chloride 10 ml 04/30/21 10:00 04/30/21 21:42 Sodium Chloride 0.9% 10 Ml Flush Syringe IV 10 ml BID MISHA Administration Sodium Chloride 10 ml 04/30/21 05:22 Sodium Chloride 0.9% 10 Ml Flush Syringe IV PRN PRN LINE FLUSH Thiamine HCl 100 mg 04/30/21 10:00 04/30/21 18:17 Thiamine 100 Mg Tab PO Not Given QDAY [facility]
[2021-05-01 09:17] LABS: Basophils % (Auto) 0.5 % (0.0-1.8); Eosinophils # (Auto) 0.1 K/mm3 (0.0-0.4); Eosinophils % (Auto) 1.6 % (0.0-4.3); Lymphocytes % (Auto) 15.5 % (13.4-35.0); Monocytes # (Auto) 0.4 K/mm3 (0.0-0.8); Monocytes % (Auto) 6.8 % (0.0-7.3)
[2021-05-01] MEDS: FERROUS SULFATE 325 MG TAB PO SCH ×3 (10:19→21:42)
[2021-05-01] MEDS: HEPARIN 5,000 UNIT/1 ML VIAL SUB-Q SCH ×2 (10:19→21:42)
[2021-05-01] MEDS: MULTIVITAMINS ,THERAPEUTIC TAB PO SCH (10:19)
[2021-05-01] MEDS: THIAMINE 100 MG TAB PO SCH (10:19)
[2021-05-01] MEDS: ASPIRIN 81 MG TAB CHEW PO SCH (13:37)
[2021-05-01] MEDS ORDERED: NON-FORMULARY EACH (Ferrous Sulfate [Ferrous Sulfate 324 Mg] 324 MG Tablet.Dr) PO SCH (14:00)
[2021-05-01 20:00] LABS: Calcium 8.8 mg/dL (8.4-10.2)
[2021-05-01] MEDS ORDERED: SODIUM POLYSTYRENE 15 GM/60 ML ORAL LIQD PO ONE (23:23)
[2021-05-01] MEDS: D5W/0.9% NACL 1,000 ML IV SCH (23:43)
[2021-05-02 06:11] LABS: BUN/Creatinine Ratio 18; Blood Urea Nitrogen 25 mg/dL (9-20); Hemolysis Index 3
[2021-05-02] MEDS ORDERED: SODIUM POLYSTYRENE 15 GM/60 ML ORAL LIQD PO SCH ×2 (09:00)
[2021-05-02] MEDS ORDERED: CHLORTHALIDONE 25 MG TAB PO SCH (10:00)
[2021-05-02] MEDS ORDERED: THIAMINE 100 MG TAB PO SCH (10:00)
[2021-05-02] MEDS ORDERED: CHLORTHALIDONE 50 MG PO SCH (10:00)
--- NOTE | 2021-05-02 10:06 | Progress Note ---
Assessment and Plan 1. Acute kidney injury: Vasomotor JUAN superimposed on CKD in the setting of volume depletion. Renal US negative. Likely ATN. Continue IV fluids. Monitor renal function. Creatinine level is improving. Avoid nephrotoxic agents. Meds dosage based on GFR. 2. FEN: Persistent Hyperkalemia, meds ordered, monitor. Continue IV D5 NS. Monitor lytes and volume status. 3. Alcohol intoxication: IV fluids. Follow lytes. [place] protocol. Counseling. 4. Hypertension: BP controlled. 5. Anemia, POA: Monitor. 6. Tobacco smoking: Counseled. Subjective: Patient was seen and examined at the bedside. Doing ok. Examination: General appearance: well-developed, appears stated age, emaciated, no distress HEENT: ATNC, ASHLEE Neck: trachea midline Respiratory: Clear to Auscultation Heart: regular, S1S2, no murmur Gastrointestinal: soft, normoactive bowel sounds, not tender, not distended Integumentary: no rash Neurologic: alert, able to move extremities, extensive muscle wasting noted Ext: no edema Subjective Date of service: 05/02/21 Objective - Vital Signs Vital signs: Vital Signs - 12hr 05/01/21 05/02/21 05/02/21 23:47 03:43 08:10 Temperature 98.6 F 97.9 F 98.3 F Pulse Rate 68 81 Respiratory 18 18 18 Rate Blood Pressure 143/77 179/86 135/73 O2 Sat by Pulse 97 98 Oximetry - Lab 05/01/21 05:46 05/02/21 04:55 Most recent lab results Calcium 9.0 mg/dL (8.4-10.2) 05/02/21 04:55 Phosphorus 3.80 mg/dL (2.5-4.5) 04/30/21 08:16 Magnesium 1.60 mg/dL (1.7-2.3) L 05/01/21 05:46 Urine Creatinine 68.8 mg/dL (0.1-20.0) H 04/30/21 21:10 Urine Sodium 181 mmol/L 04/30/21 21:10 Medications & Allergies - Medications Allergies/Adverse Reactions: Allergies No Known Allergies Allergy (Unverified 10/16/18 16:26) Home Medications: Home Medications Medication Instructions Recorded Confirmed Last Taken Type Aspirin [Aspirin BABY CHEW TAB] 81 mg PO QDAY 03/08/20 04/30/21 1 Day Ago History ~04/29/21 AtorvaSTATin [Lipitor] 20 mg PO QHS 03/08/20 04/30/21 1 Day Ago History ~04/29/21 Chlorthalidone 50 mg PO QDAY 03/08/20 04/30/21 1 Day Ago History ~04/29/21 Ferrous Sulfate [Ferrous Sulfate 324 mg PO TID 03/08/20 04/30/21 1 Day Ago History 324 MG] ~04/29/21 Tamsulosin [Flomax] 0.4 mg PO QDAY 03/08/20 04/30/21 1 Day Ago History ~04/29/21 amLODIPine 10 mg PO DAILY 03/08/20 04/30/21 1 Day Ago History ~04/29/21 Folic Acid [Folvite] 1 mg PO QDAY #30 tablet 03/09/20 04/30/21 1 Day Ago Rx ~04/29/21 Thiamine [Vitamin B-1] 100 mg PO QDAY #30 tablet 03/09/20 04/30/21 1 Day Ago Rx ~04/29/21 Active Medications: Generic Name Dose Route Start Last Admin Trade Name Freq PRN Reason Stop Dose Admin Acetaminophen 650 mg 04/30/21 05:22 Acetaminophen 325 Mg Tab PO Q4H PRN Pain MILD(1-3)/Fever >100.5/GENTILE Al Hydrox/Mg Hydrox/Simethicone 30 ml 04/30/21 05:22 Alum-Mag Hydroxide-Simethicone [phone]/5ml Oral Liqd 30 Ml PO Q4H PRN Indigestion Aspirin 81 mg 05/01/21 14:00 05/01/21 13:37 Aspirin 81 Mg Tab Chew PO 81 mg QDAY MISHA Administration Atorvastatin Calcium 20 mg 05/01/21 22:00 05/01/21 21:42 Atorvastatin 20 Mg Tab PO 20 mg QHS MISHA Administration Chlorthalidone 50 mg 05/02/21 10:00 Chlorthalidone 25 Mg Tab PO QDAY MISHA Ferrous Sulfate 325 mg 05/01/21 14:00 05/01/21 21:42 Ferrous Sulfate 325 Mg Tab PO 325 mg TID MISHA Administration Folic Acid 1 mg 05/02/21 10:00 Folic Acid 1 Mg Tab PO QDAY [facility] Haloperidol Lactate 5 mg 04/30/21 06:07 Haloperidol Lactate 5 Mg/1 Ml Inj IV Q1H PRN Unrespon. to mult. doses BZD's Heparin Sodium (Porcine) 5,000 unit 04/30/21 10:00 05/01/21 21:42 Heparin 5,000 Unit/1 Ml Vial SUB-Q 5,000 unit Q12HR MISHA Administration Dextrose/Sodium Chloride 1,000 mls @ 75 mls/hr 05/01/21 09:00 05/01/21 23:43 D5ns IV 75 mls/hr DIRECT MISHA Administration Lorazepam 2 mg 04/30/21 06:07 Lorazepam 2 Mg/Ml Vial IV Q1H PRN CIWA-Ar 8-15 Magnesium Hydroxide 30 ml 04/30/21 05:22 Magnesium Hydroxide (Mom) Oral Liqd Udc PO Q4H PRN Constipation Metoclopramide HCl 5 mg 04/30/21 05:22 Metoclopramide 10 Mg/2 Ml Inj IV Q6H PRN Nausea And Vomiting Multivitamins 1 each 04/30/21 10:00 05/01/21 10:19 Multivitamins ,Therapeutic Tab PO 1 each QDAY MISHA Administration Ondansetron HCl 4 mg 04/30/21 05:22 Ondansetron 4 Mg/2 Ml Inj IV Q8H PRN Nausea And Vomiting Senna 8.6 mg 04/30/21 05:22 Sennosides 8.6 Mg Tab PO Q12HR PRN Constipation Sodium Chloride 10 ml 04/30/21 10:00 05/01/21 21:43 Sodium Chloride 0.9% 10 Ml Flush Syringe IV 10 ml BID MISHA Administration Sodium Chloride 10 ml 04/30/21 05:22 Sodium Chloride 0.9% 10 Ml Flush Syringe IV PRN PRN LINE FLUSH Sodium Polystyrene Sulfonate 45 gm 05/02/21 09:00 Sodium Polystyrene 15 Gm/60 Ml Oral Liqd PO 05/02/21 12:00 ONCE MISHA Tamsulosin HCl 0.4 mg 05/02/21 10:00 Tamsulosin 0.4 Mg Cap PO QDAY MISHA Thiamine HCl 100 mg 04/30/21 10:00 05/01/21 10:19 Thiamine 100 Mg Tab PO 100 mg QDAY MISHA Administration
[2021-05-02] MEDS: ASPIRIN 81 MG TAB CHEW PO SCH (10:55)
[2021-05-02] MEDS: FOLIC ACID 1 MG TAB PO SCH (10:55)
[2021-05-02] MEDS: TAMSULOSIN 0.4 MG CAP PO SCH (10:55)
[2021-05-02] MEDS: HEPARIN 5,000 UNIT/1 ML VIAL SUB-Q SCH ×3 (10:56→22:50)
[2021-05-02] MEDS: FERROUS SULFATE 325 MG TAB PO SCH ×3 (10:56→22:47)
[2021-05-02] MEDS: THIAMINE 100 MG TAB PO SCH (10:56)
[2021-05-02] MEDS: MULTIVITAMINS ,THERAPEUTIC TAB PO SCH (10:56)
[2021-05-02] MEDS: D5W/0.9% NACL 1,000 ML IV SCH ×2 (11:06→22:51)
--- NOTE | 2021-05-02 11:14 | Progress Note ---
Assessment and Plan Assessment and plan: 65-year-old -[place] male who presents with acute alcohol intoxication. Acute kidney injury with CKD stage III Nephrology consulted Renal ultrasound with chronic renal disease Continue fluids Acute dehydration secondary to alcohol use IV hydration Normocytic anemia Possibly secondary to chronic alcohol use Transfuse if hemoglobin below 7.0 History of alcohol abuse CIWA protocol Hyperkalemia Kayexalate Chronic debility At baseline CODE STATUS: Full DVT prophylaxis: Heparin Disposition: Continue to monitor patient's potassium level, once creatinine levels out and is stable, patient can be discharged home. History Interval history: 04/30/2021. Follow-up renal ultrasound. Await nephrology consultation. Continue IV fluid hydration. Continue CIWA protocol. 05/01/2021. Renal ultrasound negative. Follow-up urine studies. Continue IV fluids per nephrology recommendations. Creatinine has improved to 1.5. Continue CIWA protocol. However, patient still with hyperkalemia with potassium of 6.1. Nephrology ordered Kayexalate. Follow-up repeat BMP. 609 21: Patient seen and examined, patient is improved, continue CIWA protocol. Patient continues to have hyperkalemia, refused Kayexalate yesterday, I explained to the patient the risk of not taking Kayexalate. Patient understands, will take Kayexalate today. Hospitalist Physical - Physical exam Narrative exam: General appearance: no acute distress, thin EENT: PERRL, EOM intact, hearing intact, clear oral mucosa Neck: Present: supple, normal ROM Respiratory: bilateral CTA, negative: rales, rhonchi, wheezing Cardiovascular: Regular rate/rhythm, Normal S1 & S2. No gallop, rub Extremities: no ischemia, No edema, normal temperature, normal color, Full ROM Abdominal: soft, no tenderness, non-distended, normal bowel sounds Integumentary: Present: clear, warm, dry no wounds, no erythema noted Psychiatric: appropriate mood/affect, intact judgment & insight, no hallucinations Neurologic: CNII-XII intact, moves all extremities, bilateral lower extremity weakness - Constitutional Vitals: Temp Pulse Resp BP Pulse Ox 98.3 F 81 18 135/73 98 05/02/21 08:10 05/02/21 08:10 05/02/21 08:10 05/02/21 08:10 05/02/21 08:10 HEART Score - HEART Score Troponin: Troponin T 0.059 ng/mL (0.00-0.029) H 04/30/21 01:55 Results - Labs CBC & Chem 7: 05/01/21 05:46 05/02/21 04:55 Labs: Laboratory Last Values WBC 6.5 K/mm3 (4.5-11.0) 05/01/21 05:46 RBC 3.55 M/mm3 (3.65-5.03) L 05/01/21 05:46 Hgb 9.9 gm/dl (11.8-15.2) L 05/01/21 05:46 Hct 29.0 % (35.5-45.6) L 05/01/21 05:46 MCV 82 fl (84-94) L 05/01/21 05:46 MCH 28 pg (28-32) 05/01/21 05:46 MCHC 34 % (32-34) 05/01/21 05:46 RDW 14.8 % (13.2-15.2) 05/01/21 05:46 Plt Count 160 K/mm3 (140-440) 05/01/21 05:46 Lymph % (Auto) 15.5 % (13.4-35.0) 05/01/21 05:46 [place] % (Auto) 6.8 % (0.0-7.3) 05/01/21 05:46 Eos % (Auto) 1.6 % (0.0-4.3) 05/01/21 05:46 Baso % (Auto) 0.5 % (0.0-1.8) 05/01/21 05:46 Lymph # (Auto) 1.0 K/mm3 (1.2-5.4) L 05/01/21 05:46 [place] # (Auto) 0.4 K/mm3 (0.0-0.8) 05/01/21 05:46 Eos # (Auto) 0.1 K/mm3 (0.0-0.4) 05/01/21 05:46 Baso # (Auto) 0.0 K/mm3 (0.0-0.1) 05/01/21 05:46 Seg Neutrophils % 75.6 % (40.0-70.0) H 05/01/21 05:46 Nucleated RBC % Not Reportable 05/01/21 05:46 Seg Neutrophils # 4.8 K/mm3 (1.8-7.7) 05/01/21 05:46 WBC Morphology Not Reportable 05/01/21 05:46 Hypersegmented Neuts Not Reportable 05/01/21 05:46 Hyposegmented Neuts Not Reportable 05/01/21 05:46 Hypogranular Neuts Not Reportable 05/01/21 05:46 Smudge Cells Not Reportable 05/01/21 05:46 Toxic Granulation Not Reportable 05/01/21 05:46 Toxic Vacuolation Not Reportable 05/01/21 05:46 Dohle Bodies Not Reportable 05/01/21 05:46 Pelger-Huet Anomaly Not Reportable 05/01/21 05:46 Elissa Rods Not Reportable 05/01/21 05:46 Platelet Estimate Not Reportable 05/01/21 05:46 Clumped Platelets Not Reportable 05/01/21 05:46 Plt Clumps, EDTA Not Reportable 05/01/21 05:46 Large Platelets Not Reportable 05/01/21 05:46 Giant Platelets Not Reportable 05/01/21 05:46 Platelet Satelliting Not Reportable 05/01/21 05:46 Plt Morphology Comment Not Reportable 05/01/21 05:46 RBC Morphology Not Reportable 05/01/21 05:46 Dimorphic RBCs Not Reportable 05/01/21 05:46 Polychromasia Not Reportable 05/01/21 05:46 Hypochromasia Not Reportable 05/01/21 05:46 Poikilocytosis Not Reportable 05/01/21 05:46 Anisocytosis Not Reportable 05/01/21 05:46 Microcytosis Not Reportable 05/01/21 05:46 Macrocytosis Not Reportable 05/01/21 05:46 Spherocytes Not Reportable 05/01/21 05:46 Pappenheimer Bodies Not Reportable 05/01/21 05:46 Sickle Cells Not Reportable 05/01/21 05:46 Target Cells Not Reportable 05/01/21 05:46 Tear Drop Cells Not Reportable 05/01/21 05:46 Ovalocytes Not Reportable 05/01/21 05:46 Helmet Cells Not Reportable 05/01/21 05:46 [place] Bodies Not Reportable 05/01/21 05:46 [place] Rings Not Reportable 05/01/21 05:46 Gilman Cells Not Reportable 05/01/21 05:46 Bite Cells Not Reportable 05/01/21 05:46 Crenated Cell Not Reportable 05/01/21 05:46 Elliptocytes Not Reportable 05/01/21 05:46 Acanthocytes (Spur) Not Reportable 05/01/21 05:46 Rouleaux Not Reportable 05/01/21 05:46 Hemoglobin C Crystals Not Reportable 05/01/21 05:46 Schistocytes Not Reportable 05/01/21 05:46 Malaria parasites Not Reportable 05/01/21 05:46 Toni Bodies Not Reportable 05/01/21 05:46 Hem Pathologist Commnt Not Reportable 05/01/21 05:46 Sodium 134 mmol/L (137-145) L 05/02/21 04:55 Potassium 5.9 mmol/L (3.6-5.0) H 05/02/21 04:55 Chloride 102.4 mmol/L (98-107) 05/02/21 04:55 Carbon Dioxide 23 mmol/L (22-30) 05/02/21 04:55 Anion Gap 15 mmol/L 05/02/21 04:55 BUN 25 mg/dL (9-20) H 05/02/21 04:55 Creatinine 1.4 mg/dL (0.8-1.3) H 05/02/21 04:55 Estimated GFR > 60 ml/min 05/02/21 04:55 BUN/Creatinine Ratio 18 % 05/02/21 04:55 Glucose 100 mg/dL (75-100) 05/02/21 04:55 Hemoglobin A1c 5.9 % (4-6) 04/30/21 05:35 Calcium 9.0 mg/dL (8.4-10.2) 05/02/21 04:55 Phosphorus 3.80 mg/dL (2.5-4.5) 04/30/21 08:16 Magnesium 1.60 mg/dL (1.7-2.3) L 05/01/21 05:46 Total Bilirubin 0.30 mg/dL (0.1-1.2) 05/01/21 05:46 Total Bilirubin 0.30 mg/dL (0.1-1.2) 05/01/21 05:46 Direct Bilirubin < 0.2 mg/dL (0-0.2) 05/01/21 05:46 Indirect Bilirubin 0.1 mg/dL 05/01/21 05:46 AST 14 units/L (5-40) 05/01/21 05:46 AST 15 units/L (5-40) 05/01/21 05:46 ALT 7 units/L (7-56) 05/01/21 05:46 ALT 9 units/L (7-56) 05/01/21 05:46 Alkaline Phosphatase 79 units/L (35-129) 05/01/21 05:46 Alkaline Phosphatase 80 units/L (35-129) 05/01/21 05:46 Troponin T 0.059 ng/mL (0.00-0.029) H 04/30/21 01:55 Total Protein 6.2 g/dL (6.3-8.2) L 05/01/21 05:46 Total Protein 6.6 g/dL (6.3-8.2) 05/01/21 05:46 Albumin 3.1 g/dL (3.9-5) L 05/01/21 05:46 Albumin 3.1 g/dL (3.9-5) L 05/01/21 05:46 Albumin/Globulin Ratio 0.9 % 05/01/21 05:46 Albumin/Globulin Ratio 1.0 % 05/01/21 05:46 Triglycerides 114 mg/dL (2-149) 04/30/21 01:55 Cholesterol 129 mg/dL (50-199) 04/30/21 01:55 LDL Cholesterol Direct 51 mg/dL (50-130) 04/30/21 01:55 HDL Cholesterol 74 mg/dL (40-59) H 04/30/21 01:55 Cholesterol/HDL Ratio 1.74 % 04/30/21 01:55 Urine Color Yellow (Yellow) 04/30/21 21:37 Urine Turbidity Clear (Clear) 04/30/21 21:37 Urine pH 7.0 (5.0-7.0) 04/30/21 21:37 Ur Specific [place] 1.011 (1.003-1.030) 04/30/21 21:37 Urine Protein <15 mg/dl mg/dL (Negative) 04/30/21 21:37 Urine Glucose (UA) Neg mg/dL (Negative) 04/30/21 21:37 Urine Ketones Neg mg/dL (Negative) 04/30/21 21:37 Urine Blood Neg (Negative) 04/30/21 21:37 Urine Nitrite Neg (Negative) 04/30/21 21:37 Urine Bilirubin Neg (Negative) 04/30/21 21:37 Urine Urobilinogen < 2.0 mg/dL (<2.0) 04/30/21 21:37 Ur Leukocyte Esterase Neg (Negative) 04/30/21 21:37 Urine WBC (Auto) 2.0 /HPF (0.0-6.0) 04/30/21 21:37 Urine RBC (Auto) 1.0 /HPF (0.0-6.0) 04/30/21 21:37 U Epithel Cells (Auto) < 1.0 /HPF (0-13.0) 04/30/21 21:37 Urine Creatinine 68.8 mg/dL (0.1-20.0) H 04/30/21 21:10 Urine Sodium 181 mmol/L 04/30/21 21:10 Urine Opiates Screen Presumptive negative 04/30/21 21:37 Urine Methadone Screen Presumptive negative 04/30/21 21:37 Ur Barbiturates Screen Presumptive negative 04/30/21 21:37 Ur Phencyclidine Scrn Presumptive negative 04/30/21 21:37 Ur Amphetamines Screen Presumptive negative 04/30/21 21:37 U Benzodiazepines Scrn Presumptive negative 04/30/21 21:37 Urine Cocaine Screen Presumptive negative 04/30/21 21:37 U Marijuana (THC) Screen Presumptive positive 04/30/21 21:37 Drugs of Abuse Note Disclamer 04/30/21 21:37 Plasma/Serum Alcohol 0.16 % (0-0.07) H 04/30/21 01:55 Samuels/IV: Voiding Method Urinal Active Medications - Current Medications Current Medications: Generic Name Dose Route Start Last Admin Trade Name Freq PRN Reason Stop Dose Admin Acetaminophen 650 mg 04/30/21 05:22 Acetaminophen 325 Mg Tab PO Q4H PRN Pain MILD(1-3)/Fever >100.5/GENTILE Al Hydrox/Mg Hydrox/Simethicone 30 ml 04/30/21 05:22 Alum-Mag Hydroxide-Simethicone 330-250-68wg/5ml Oral Liqd 30 Ml PO Q4H PRN Indigestion Aspirin 81 mg 05/01/21 14:00 05/02/21 10:55 Aspirin 81 Mg Tab Chew PO 81 mg QDAY MISHA Administration Atorvastatin Calcium 20 mg 05/01/21 22:00 05/01/21 21:42 Atorvastatin 20 Mg Tab PO 20 mg QHS MISHA Administration Chlorthalidone 50 mg 05/02/21 10:00 05/02/21 10:57 Chlorthalidone 25 Mg Tab PO 50 mg QDAY MISHA Administration Ferrous Sulfate 325 mg 05/01/21 14:00 05/02/21 10:56 Ferrous Sulfate 325 Mg Tab PO 325 mg TID MISHA Administration Folic Acid 1 mg 05/02/21 10:00 05/02/21 10:55 Folic Acid 1 Mg Tab PO 1 mg QDAY MISHA Administration Haloperidol Lactate 5 mg 04/30/21 06:07 Haloperidol Lactate 5 Mg/1 Ml Inj IV Q1H PRN Unrespon. to mult. doses BZD's Heparin Sodium (Porcine) 5,000 unit 04/30/21 10:00 05/02/21 11:01 Heparin 5,000 Unit/1 Ml Vial SUB-Q Not Given Q12HR MISHA Dextrose/Sodium Chloride 1,000 mls @ 75 mls/hr 05/01/21 09:00 05/02/21 11:06 D5ns IV 75 mls/hr DIRECT MISHA Administration Lorazepam 2 mg 04/30/21 06:07 Lorazepam 2 Mg/Ml Vial IV Q1H PRN CIWA-Ar 8-15 Magnesium Hydroxide 30 ml 04/30/21 05:22 Magnesium Hydroxide (Mom) Oral Liqd Udc PO Q4H PRN Constipation Metoclopramide HCl 5 mg 04/30/21 05:22 Metoclopramide 10 Mg/2 Ml Inj IV Q6H PRN Nausea And Vomiting Multivitamins 1 each 04/30/21 10:00 05/02/21 10:56 Multivitamins ,Therapeutic Tab PO 1 each QDAY MISHA Administration Ondansetron HCl 4 mg 04/30/21 05:22 Ondansetron 4 Mg/2 Ml Inj IV Q8H PRN Nausea And Vomiting Senna 8.6 mg 04/30/21 05:22 Sennosides 8.6 Mg Tab PO Q12HR PRN Constipation Sodium Chloride 10 ml 06/27/21 10:00 05/02/21 10:57 Sodium Chloride 0.9% 10 Ml Flush Syringe IV 10 ml BID MISHA Administration Sodium Chloride 10 ml 04/30/21 05:22 Sodium Chloride 0.9% 10 Ml Flush Syringe IV PRN PRN LINE FLUSH Sodium Polystyrene Sulfonate 45 gm 05/02/21 09:00 05/02/21 10:55 Sodium Polystyrene 15 Gm/60 Ml Oral Liqd PO 05/02/21 12:00 45 gm ONCE MISHA Administration Tamsulosin HCl 0.4 mg 05/02/21 10:00 05/02/21 10:55 Tamsulosin 0.4 Mg Cap PO 0.4 mg QDAY MISHA Administration Thiamine HCl 100 mg 04/30/21 10:00 05/02/21 10:56 Thiamine 100 Mg Tab PO 100 mg QDAY MISHA Administration Nutrition/Malnutrition Assess - Dietary Evaluation Nutrition/Malnutrition Findings: Nutrition Notes Start: 05/01/21 12:47 Freq: Status: Active Protocol: Document 05/01/21 12:47 (Rec: 05/01/21 12:55 [email or web address]) Nutrition Notes Need for Assessment generated from: Low BMI Initial or Follow up Assessment Current Diagnosis Acute Kidney Injury,CKD(stage I-IV) Other Pertinent Diagnosis etoh dependence Current Diet Cardiac Labs/Tests Na 135 K 6.1 BUN 27 Cr 1.5 Pertinent Medications MVI, Thiamine, Feosol Height 6 ft Weight 51 kg Usual Body Weight 68.18 kg [place] Body Weight (kg) 80.90 BMI 15.2 Intake Prior to Admission Fair Weight change and time frame 25% wt loss in unknown time frame Weight Status Underweight Subjective/Other Information Screen for low BMI. Pt reports UBW 150# but unsure last when , he suspects a long time ( years). Pt rememebers losing most of his wt in 1994 and unable to gain the weight back . Pt states he is open to double protein portions and he requested ONS. Burn Absent Trauma Absent GI Symptoms None Current % PO Good (75-100%) Minimum of two criteria Yes Body Fat Depletion Mild depletion (non-severe) Muscle Mass Mild Depletion (non-severe) #1 Nutrition Diagnosis Malnutrition Etiology etoh dependence As Evidenced by Signs and Symptoms muslce and fat wasting Is patient on ventilator? No Is Patient Ambulatory and/or Out of Bed No REE-([place]-[facility]-confined to bed) 1617.036 Calculation Used for Recommendations [facility] Additional Notes Protein: (1.2-1.5g/kg) 61-76g Fluid: 1 ml/kcal Nutrition Intervention Change Diet Order: Double protein, add renal Add Supplement/Snack (indicate name/kcal Ensure High Protein Vanilla /protein ) BID Provides kCal: 320 Provides Protein (gm) 32 Goal #1 Meet at least 80% of protein and energy needs via PO and ONS intakes Goal #2 weight gain/maintenance Anticipated Discharge Needs: Cardiac, high protein Follow-Up By: 05/03/21 Additional Comments FU for intakes and ONS tolerance
[2021-05-03 04:59] VITALS: BP 104/55
[2021-05-03 06:43] LABS: BUN/Creatinine Ratio 14; Blood Urea Nitrogen 19 mg/dL (9-20); Hemolysis Index 3
[2021-05-03] MEDS: D5W/0.9% NACL 1,000 ML IV SCH (10:26)
[2021-05-03] MEDS: FERROUS SULFATE 325 MG TAB PO SCH (10:27)
[2021-05-03] MEDS: ASPIRIN 81 MG TAB CHEW PO SCH (10:27)
[2021-05-03] MEDS: TAMSULOSIN 0.4 MG CAP PO SCH (10:27)
[2021-05-03] MEDS: MULTIVITAMINS ,THERAPEUTIC TAB PO SCH (10:27)
[2021-05-03] MEDS: FOLIC ACID 1 MG TAB PO SCH (10:28)
[2021-05-03] MEDS: HEPARIN 5,000 UNIT/1 ML VIAL SUB-Q SCH ×2 (10:28→10:29)
[2021-05-03] MEDS: THIAMINE 100 MG TAB PO SCH (10:28)
--- NOTE | 2021-05-03 11:51 | Discharge Summary ---
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 Acute kidney injury with CKD stage III Nephrology consulted Renal ultrasound with chronic renal disease Continue fluids Renal function is at baseline Acute dehydration secondary to alcohol use IV hydration Normocytic anemia Possibly secondary to chronic alcohol use Transfuse if hemoglobin below 7.0 History of alcohol abuse CIWA protocol Hyperkalemia Kayexalate Resolved Chronic debility At baseline Interval history: 04/30/2021. Follow-up renal ultrasound. Await nephrology consultation. Continue IV fluid hydration. Continue CIWA protocol. 05/01/2021. Renal ultrasound negative. Follow-up urine studies. Continue IV fluids per nephrology recommendations. Creatinine has improved to 1.5. Continue CIWA protocol. However, patient still with hyperkalemia with potassium of 6.1. Nephrology ordered Kayexalate. Follow-up repeat BMP. 05/02/2021: Patient seen and examined, patient is improved, continue CIWA protocol. Patient continues to have hyperkalemia, refused Kayexalate yesterday, I explained to the patient the risk of not taking Kayexalate. Patient understands, will take Kayexalate today. 05/03/2021: Patient took Kayexalate, repeat potassium normal. Creatinine is at baseline. Patient is stable for discharge. Disposition: TO HOME OR SELFCARE Final Discharge Diagnosis (Prints w/discharge instructions): Acute kidney injury. Chronic kidney disease stage III. Acute dehydration. Alcohol abuse. Normocytic anemia. Hyperkalemia. Chronic debility Core Measure Documentation - Palliative Care Palliative Care/ Comfort Measures: Not Applicable - Core Measures Any of the following diagnoses?: none Exam - Physical Exam Narrative exam: General appearance: no acute distress, thin EENT: PERRL, EOM intact, hearing intact, clear oral mucosa Neck: Present: supple, normal ROM Respiratory: bilateral CTA, negative: rales, rhonchi, wheezing Cardiovascular: Regular rate/rhythm, Normal S1 & S2. No gallop, rub Extremities: no ischemia, No edema, normal temperature, normal color, Full ROM Abdominal: soft, no tenderness, non-distended, normal bowel sounds Integumentary: Present: clear, warm, dry no wounds, no erythema noted Psychiatric: appropriate mood/affect, intact judgment & insight, no hallucinations Neurologic: CNII-XII intact, moves all extremities, bilateral lower extremity weakness - Constitutional Vitals: Temp Pulse Resp BP Pulse Ox 97.8 F 68 18 104/55 98 05/03/21 04:14 05/03/21 04:14 05/03/21 04:14 05/03/21 04:14 05/03/21 04:14 Plan Activity: no restrictions Diet: renal Follow up with: PRIMARY CAREMD [Primary Care Provider] - 7 Days
--- NOTE | 2021-05-03 13:14 | Progress Note ---
Assessment and Plan 1. Acute kidney injury: Vasomotor JUAN superimposed on CKD in the setting of volume depletion. Renal US negative. Likely ATN. Continue IV fluids. Monitor renal function. Creatinine level is improving. Avoid nephrotoxic agents. Meds dosage based on GFR. 2. FEN: Hyperkalemia, improved, monitor. Low potassium diet. Monitor lytes and volume status. 3. Alcohol intoxication: Follow lytes. CIWA protocol. Counseling. 4. Hypertension: BP controlled. 5. Anemia, POA: Monitor. 6. Tobacco smoking: Counseled. F/u in 1-2 weeks. Subjective: Patient was seen and examined at the bedside. Doing ok. Examination: General appearance: well-developed, appears stated age, emaciated, no distress HEENT: ATNC, ASHLEE Neck: trachea midline Respiratory: Clear to Auscultation Heart: regular, S1S2, no murmur Gastrointestinal: soft, normoactive bowel sounds, not tender, not distended Integumentary: no rash Neurologic: alert, able to move extremities, extensive muscle wasting noted Ext: no edema Subjective Date of service: 05/03/21 Objective - Vital Signs Vital signs: Vital Signs - 12hr 05/03/21 04:14 Temperature 97.8 F Pulse Rate 68 Respiratory 18 Rate Blood Pressure 104/55 O2 Sat by Pulse 98 Oximetry - Lab 05/01/21 05:46 05/03/21 05:50 Most recent lab results Calcium 8.0 mg/dL (8.4-10.2) L 05/03/21 05:50 Phosphorus 3.80 mg/dL (2.5-4.5) 04/30/21 08:16 Magnesium 1.60 mg/dL (1.7-2.3) L 05/01/21 05:46 Urine Creatinine 68.8 mg/dL (0.1-20.0) H 04/30/21 21:10 Urine Sodium 181 mmol/L 04/30/21 21:10 Medications & Allergies - Medications Allergies/Adverse Reactions: Allergies No Known Allergies Allergy (Unverified 10/16/18 16:26) Home Medications: Home Medications Medication Instructions Recorded Confirmed Last Taken Type Aspirin [Aspirin BABY CHEW TAB] 81 mg PO QDAY 03/08/20 04/30/21 1 Day Ago History ~04/29/21 AtorvaSTATin [Lipitor] 20 mg PO QHS 03/08/20 04/30/21 1 Day Ago History ~04/29/21 Chlorthalidone 50 mg PO QDAY 03/08/20 04/30/21 1 Day Ago History ~04/29/21 Ferrous Sulfate [Ferrous Sulfate 324 mg PO TID 03/08/20 04/30/21 1 Day Ago History 324 MG] ~04/29/21 Tamsulosin [Flomax] 0.4 mg PO QDAY 03/08/20 04/30/21 1 Day Ago History ~04/29/21 amLODIPine 10 mg PO DAILY 03/08/20 04/30/21 1 Day Ago History ~04/29/21 Folic Acid [Folvite] 1 mg PO QDAY #30 tablet 03/09/20 04/30/21 1 Day Ago Rx ~04/29/21 Thiamine [Vitamin B-1] 100 mg PO QDAY #30 tablet 03/09/20 04/30/21 1 Day Ago Rx ~04/29/21 Active Medications: Generic Name Dose Route Start Last Admin Trade Name Freq PRN Reason Stop Dose Admin Acetaminophen 650 mg 04/30/21 05:22 Acetaminophen 325 Mg Tab PO Q4H PRN Pain MILD(1-3)/Fever >100.5/GENTILE Al Hydrox/Mg Hydrox/Simethicone 30 ml 04/30/21 05:22 Alum-Mag Hydroxide-Simethicone 804-443-62ai/5ml Oral Liqd 30 Ml PO Q4H PRN Indigestion Aspirin 81 mg 05/01/21 14:00 05/03/21 10:27 Aspirin 81 Mg Tab Chew PO 81 mg QDAY MISHA Administration Atorvastatin Calcium 20 mg 05/01/21 22:00 05/02/21 22:47 Atorvastatin 20 Mg Tab PO 20 mg QHS MISHA Administration Ferrous Sulfate 325 mg 05/01/21 14:00 05/03/21 10:27 Ferrous Sulfate 325 Mg Tab PO 325 mg TID MISHA Administration Folic Acid 1 mg 05/02/21 10:00 05/03/21 10:28 Folic Acid 1 Mg Tab PO 1 mg QDAY MISHA Administration Haloperidol Lactate 5 mg 04/30/21 06:07 Haloperidol Lactate 5 Mg/1 Ml Inj IV Q1H PRN Unrespon. to mult. doses BZD's Heparin Sodium (Porcine) 5,000 unit 04/30/21 10:00 05/03/21 10:29 Heparin 5,000 Unit/1 Ml Vial SUB-Q Not Given Q12HR MISHA Dextrose/Sodium Chloride 1,000 mls @ 75 mls/hr 05/01/21 09:00 05/03/21 10:26 D5ns IV 75 mls/hr DIRECT MISHA Administration Lorazepam 2 mg 04/30/21 06:07 Lorazepam 2 Mg/Ml Vial IV Q1H PRN CIWA-Ar 8-15 Magnesium Hydroxide 30 ml 04/30/21 05:22 Magnesium Hydroxide (Mom) Oral Liqd Udc PO Q4H PRN Constipation Metoclopramide HCl 5 mg 04/30/21 05:22 Metoclopramide 10 Mg/2 Ml Inj IV Q6H PRN Nausea And Vomiting Multivitamins 1 each 04/30/21 10:00 05/03/21 10:27 Multivitamins ,Therapeutic Tab PO 1 each QDAY MISHA Administration Ondansetron HCl 4 mg 04/30/21 05:22 Ondansetron 4 Mg/2 Ml Inj IV Q8H PRN Nausea And Vomiting Senna 8.6 mg 04/30/21 05:22 Sennosides 8.6 Mg Tab PO Q12HR PRN Constipation Sodium Chloride 10 ml 04/30/21 10:00 05/03/21 10:28 Sodium Chloride 0.9% 10 Ml Flush Syringe IV 10 ml BID MISHA Administration Sodium Chloride 10 ml 04/30/21 05:22 Sodium Chloride 0.9% 10 Ml Flush Syringe IV PRN PRN LINE FLUSH Tamsulosin HCl 0.4 mg 05/02/21 10:00 05/03/21 10:27 Tamsulosin 0.4 Mg Cap PO 0.4 mg QDAY MISHA Administration Thiamine HCl 100 mg 04/30/21 10:00 05/03/21 10:28 Thiamine 100 Mg Tab PO 100 mg QDAY MISHA Administration
== END 2021-05-03 18:40 | disposition home or self-care (01) | DRG 640 ==
LOC: ED 01:16 → 4A 04:54 → OBSVTOIN 05-01 10:35
PROVIDERS: ADMIT Internal Medicine Geriatric Medicine; ATTEND Family Medicine
DX: E86.0 Dehydration (principal); N17.0 Acute kidney failure with tubular necrosis; E87.5 Hyperkalemia; N18.30 Chronic kidney disease, stage 3 unspecified; F10.10 Alcohol abuse, uncomplicated; D64.9 Anemia, unspecified; F17.210 Nicotine dependence, cigarettes, uncomplicated; I12.9 Hypertensive chronic kidney disease with stage 1 through stage 4 chronic kidney disease, or unspecified chronic kidney disease; F10.129 Alcohol abuse with intoxication, unspecified; N40.0 Benign prostatic hyperplasia without lower urinary tract symptoms; J44.9 Chronic obstructive pulmonary disease, unspecified; Z96.651 Presence of right artificial knee joint; Z86.73 Personal history of transient ischemic attack (TIA), and cerebral infarction without residual deficits; Z79.899 Other long term (current) drug therapy; Z79.891 Long term (current) use of opiate analgesic; Z79.82 Long term (current) use of aspirin; Z71.6 Tobacco abuse counseling
CPT/HCPCS: 36415; 71045; 76770; 80048; 80053; 80061; 80076; 80307; 80320; 81001; 82310; 82570; 83036; 83735; 84100; 84132; 84300; 84484; 85007; 85025; 93005; 96361; 96365; 99406; G0378; G0480; J1644; J7030; J7042

== ENCOUNTER 2021-05-23 09:32 | Inpatient (IN) | payer MEDICARE ==
--- NOTE | 2021-05-23 10:32 | Emergency Department Report ---
HPI - General Chief Complaint: Medical Clearance Time Seen by Provider: 05/23/21 10:18 - HPI HPI: Room 23 The patient 65-year-old male present with a chief complaint of "I was out in the rain." When asked what made him come to the emergency department patient replies "I was out in the rain." The patient was reportedly found on the ground by EMS in the parking lot of a grocery store sleeping. Patient was reportedly brought in by EMS for alcohol intoxication hypertension and bradycardia. When asked if anything is bothering him the patient replies that he is simply "hungry." When asked if anything else is bothering him the patient replies "my girlfriend " ED Past Medical Hx - Past Medical History Hx Hypertension: Yes Hx CVA: Yes (R sided deficits) Hx COPD: Yes Additional medical history: enlarged prostate - Surgical History Additional Surgical History: R knee - Family History Family history: no significant - Social History Smoking Status: Current Every Day Smoker (1/7 pack/day) Substance Use Type: Alcohol (Occasional), Marijuana - Medications Home Medications: Home Medications Medication Instructions Recorded Confirmed Last Taken Type Aspirin [Aspirin BABY CHEW TAB] 81 mg PO QDAY 03/08/20 04/30/21 1 Day Ago History ~04/29/21 AtorvaSTATin [Lipitor] 20 mg PO QHS 03/08/20 04/30/21 1 Day Ago History ~04/29/21 Chlorthalidone 50 mg PO QDAY 03/08/20 04/30/21 1 Day Ago History ~04/29/21 Ferrous Sulfate [Ferrous Sulfate 324 mg PO TID 03/08/20 04/30/21 1 Day Ago History 324 MG] ~04/29/21 Tamsulosin [Flomax] 0.4 mg PO QDAY 03/08/20 04/30/21 1 Day Ago History ~04/29/21 amLODIPine 10 mg PO DAILY 03/08/20 04/30/21 1 Day Ago History ~04/29/21 Folic Acid [Folvite] 1 mg PO QDAY #30 tablet 03/09/20 04/30/21 1 Day Ago Rx ~04/29/21 Thiamine [Vitamin B-1] 100 mg PO QDAY #30 tablet 03/09/20 04/30/21 1 Day Ago Rx ~04/29/21 ED Review of Systems ROS: Stated complaint: HYPOTENSIVE/IZA/ETOH Other details as noted in HPI Constitutional: no symptoms reported Eyes: denies: eye pain ENT: denies: throat pain Respiratory: no symptoms reported Cardiovascular: denies: chest pain Endocrine: no symptoms reported Gastrointestinal: other (Hunger) Genitourinary: denies: dysuria Musculoskeletal: denies: back pain Neurological: denies: headache Physical Exam - Physical Exam Physical Exam: GENERAL: The patient is well-developed well-nourished male lying on stretcher not appearing to be in acute distress. [] HEENT: Normocephalic. Atraumatic. Extraocular motions are intact. Patient has moist mucous membranes. NECK: Supple. Trachea midline CHEST/LUNGS: Clear to auscultation. There is no respiratory distress noted. HEART/CARDIOVASCULAR: Regular. There is no tachycardia. There is no gallop rub or murmur. ABDOMEN: Abdomen is soft, nontender. Patient has normal bowel sounds. There is no abdominal distention. SKIN: There is no rash. There is no edema. There is no diaphoresis. NEURO: The patient is awake, alert, and oriented. The patient is cooperative. The patient has no focal neurologic deficits. The patient has normal speech. GCS 15 MUSCULOSKELETAL: There is no evidence of acute injury. ED Medical Decision Making - Lab Data Result diagrams: 05/23/21 18:03 05/23/21 10:38 Laboratory Tests 05/23/21 05/23/21 05/23/21 10:38 10:38 10:38 WBC RBC Hgb Hct MCV MCH MCHC RDW Plt Count Lymph % (Auto) [place] % (Auto) Eos % (Auto) Baso % (Auto) Lymph # (Auto) [place] # (Auto) Eos # (Auto) Baso # (Auto) Seg Neutrophils % Seg Neutrophils # Sodium 138 Potassium 5.2 H Chloride 102.5 Carbon Dioxide 22 Anion Gap 19 BUN 32 H Creatinine 1.5 H Estimated GFR 57 BUN/Creatinine Ratio 21 Glucose 87 Calcium 8.5 Total Bilirubin 0.30 AST 22 ALT 8 Alkaline Phosphatase 122 Total Creatine Kinase 224 H CK-MB (CK-2) 10.5 H CK-MB (CK-2) Rel Index 4.6 H Troponin T 0.032 H Total Protein 8.1 Albumin 3.5 L Albumin/Globulin Ratio 0.8 Triglycerides 78 Cholesterol 176 LDL Cholesterol Direct 53 HDL Cholesterol 115 H Cholesterol/HDL Ratio 1.53 Plasma/Serum Alcohol 0.32 H 05/23/21 18:03 WBC 9.0 RBC 4.11 Hgb 11.2 L Hct 33.9 L MCV 83 L MCH 27 L MCHC 33 RDW 15.9 H Plt Count 187 Lymph % (Auto) 10.5 L [place] % (Auto) 4.9 Eos % (Auto) 1.0 Baso % (Auto) 0.1 Lymph # (Auto) 0.9 L [place] # (Auto) 0.4 Eos # (Auto) 0.1 Baso # (Auto) 0.0 Seg Neutrophils % 83.5 H Seg Neutrophils # 7.5 Sodium Potassium Chloride Carbon Dioxide Anion Gap BUN Creatinine Estimated GFR BUN/Creatinine Ratio Glucose Calcium Total Bilirubin AST ALT Alkaline Phosphatase Total Creatine Kinase CK-MB (CK-2) CK-MB (CK-2) Rel Index Troponin T Total Protein Albumin Albumin/Globulin Ratio Triglycerides Cholesterol LDL Cholesterol Direct HDL Cholesterol Cholesterol/HDL Ratio Plasma/Serum Alcohol - EKG Data -: EKG Interpreted by Mo EKG shows normal: sinus rhythm Rate: normal - EKG Data When compared to previous EKG there are: previous EKG unavailable Interpretation: nonspecific ST-T wave sammi - Radiology Data Radiology results: report reviewed (CT head), image reviewed (CT head) [facility] [address] [place] [address] Cat Scan Report Signed Patient: ROXI MURILLO MR#: [id number] : 1955 Acct:[id number] Age/Sex: 65 / M ADM Date: 05/23/21 Loc: ED Attending Dr: Ordering Physician: RAFI NAVARRO MD Date of Service: 05/23/21 Procedure(s): CT head/brain wo con Accession Number(s): [id number] cc: RAFI NAVARRO MD CT HEAD WITHOUT CONTRAST INDICATION : Found on ground in parking lot. TECHNIQUE: Axial imaging performed from the skull apex through the skull base without the use of contrast. Sagittal and coronal reformatted images. All CT scans at this location are performed using CT dose reduction for ALARA by means of automated exposure control. COMPARISON: 10/16/2018 FINDINGS: Parenchyma: Limited exam. The anterior frontal cortex is cut off the [id number]. Abnormality in these areas cannot be excluded. Mild diffuse cortical volume loss and mild chronic white matter changes are again noted and unchanged. No acute parenchymal abnormality is detected. No extra-axial fluid collection. Small left subdural collection seen on the previous exam has resolved. Ventricles: Ventricles are normal in size and appear symmetric. Bones: No acute osseous abnormality. The frontal bones are not entirely included. Sinuses: Sinuses and mastoid air cells are clear. Soft tissues: Soft tissues including the orbits appear normal. IMPRESSION: Limited exam as described. No acute abnormality is detected. Signer Name: Cholo Allison Jr, MD Signed: 05/23/2021 12:22 PM Workstation Name: [id number] Transcribed By: TTR Dictated By: CHOLO ALLISON JR, MD Electronically Authenticated By: CHOLO ALLISON JR, MD Signed Date/Time: 05/23/21 122 DD/ TD/TT: Print Cancel - Differential Diagnosis Homelessness, hypothermia Critical care attestation.: If time is entered above; I have spent that time in minutes in the direct care of this critically ill patient, excluding procedure time. ED Disposition Clinical Impression: Alcohol abuse, Elevated troponin Disposition: OP ADMIT IP TO THIS HOSP Is pt being admited?: Yes Does the pt Need Aspirin: Yes Condition: Fair Referrals: PRIMARY CARE, [Primary Care Provider] - 3-5 Days Time of Disposition: 19:56 (Hospitalist notified (Dr. Hernández))
[2021-05-23 11:14] LABS: Albumin 3.5 g/dL (3.9-5); Calcium 8.5 mg/dL (8.4-10.2)
--- NOTE | 2021-05-23 12:27 | Cat Scan Report ---
CT HEAD WITHOUT CONTRAST INDICATION : Found on ground in parking lot. TECHNIQUE: Axial imaging performed from the skull apex through the skull base without the use of con trast. Sagittal and coronal reformatted images. All CT scans at this location are performed using C T dose reduction for ALARA by means of automated exposure control. COMPARISON: 10/16/2018 FINDINGS: Parenchyma: Limited exam. The anterior frontal cortex is cut off the [id number]. Abnormality in t hese areas cannot be excluded. Mild diffuse cortical volume loss and mild chronic white matter change s are again noted and unchanged. No acute parenchymal abnormality is detected. No extra-axial fluid c ollection. Small left subdural collection seen on the previous exam has resolved. Ventricles: Ventricles are normal in size and appear symmetric. Bones: No acute osseous abnormality. The frontal bones are not entirely included. Sinuses: Sinuses and mastoid air cells are clear. Soft tissues: Soft tissues including the orbits appear normal. IMPRESSION: Limited exam as described. No acute abnormality is detected. Signer Name: Cholo Allison Jr, MD Signed: 05/23/2021 12:22 PM Workstation Name: [id number]
[2021-05-23] MEDS ORDERED: MAGNESIUM SULFATE 2 GM/50 ML BAG IV ONE (13:56)
[2021-05-23] MEDS ORDERED: THIAMINE 100 MG, FOLIC ACID 1 MG, MULTIPLE VITAMIN INJ, ADULT 10 ML in SODIUM CHLORIDE ... IV ONE (14:56)
[2021-05-23 14:58] LABS: Creatine Kinase MB 10.5 ng/mL (0.0-4.0)
[2021-05-23 15:24] LABS: Chol/HDL Ratio 1.53 %
[2021-05-23 19:12] LABS: Basophils % (Auto) 0.1 % (0.0-1.8); Eosinophils # (Auto) 0.1 K/mm3 (0.0-0.4); Hematocrit 33.9 % (35.5-45.6); Hemoglobin 11.2 gm/dl (11.8-15.2); Lymphocytes # (Auto) 0.9 K/mm3 (1.2-5.4); Lymphocytes % (Auto) 10.5 % (13.4-35.0); Mean Corpuscular HGB Conc 33 % (32-34); Mean Corpuscular Volume 83 fl (84-94); Monocytes # (Auto) 0.4 K/mm3 (0.0-0.8); Monocytes % (Auto) 4.9 % (0.0-7.3); Platelet Count 187 K/mm3 (140-440); Red Blood Count 4.11 M/mm3 (3.65-5.03); Red Cell Distribution Width 15.9 % (13.2-15.2)
--- NOTE | 2021-05-23 19:55 | History and Physical Report ---
History of Present Illness Chief complaint: I was out in the rain History of present illness: 65 YO Male with ETOH Dependence, COPD, BPH, Nicotine Dependence presents to ED for evaluation. Patient is confused and lethargic at time of my evaluation and is unable to provide detailed history. Minimal history is provided by the patient. Additional history provided by EMS staff, as well as ED staff. EMS was notified by yeimy Manuel after the patient was found down on the ground. EMS was notified and upon arrival the patient was found down, intoxicated and in distress and subsequently transported to [facility] for further care and evaluation of the aforementioned symptoms. The patient was seen and evaluated in the emergency department. All lab and imaging studies reviewed. Pt found to have EKG changes, as well as labs findings consistent with NSTEMI suspected Type II. Pt also found to have metabolic encephalopathy, malnutrition, alcohol intoxication, as well as acute kidney injury suspected secondary to volume depletion. Patient admitted to telemetry floor and initiated on chest pain protocol, as well as alcohol withdrawal protocol and treated with supportive care with IV fluid resuscitation therapy and benzodiazepine therapy. No reports of fever, chills, chest pain, palpitations, productive cough, skin rash, recent ill contact, known exposure to COVID-19. No further history is obtainable from the patient. The patient is mildly tremulous and agitated on exam. Advanced care planning conducted in the emergency department. Prior admission on 03/07/2020 reviewed.. No medication listed at time of admission for reconciliation. Past History Past Medical History: COPD, other (See HPI) Past Surgical History: total knee replacement Social history: single, smoking, alcohol abuse Family history: diabetes, hypertension Medications and Allergies Allergies Allergy/AdvReac Type Severity Reaction Status Date / Time No Known Allergies Allergy Unverified 10/16/18 16:26 Home Medications Medication Instructions Recorded Confirmed Last Taken Type Aspirin [Aspirin BABY CHEW TAB] 81 mg PO QDAY 03/08/20 04/30/21 1 Day Ago History ~04/29/21 AtorvaSTATin [Lipitor] 20 mg PO QHS 03/08/20 04/30/21 1 Day Ago History ~04/29/21 Chlorthalidone 50 mg PO QDAY 03/08/20 04/30/21 1 Day Ago History ~04/29/21 Ferrous Sulfate [Ferrous Sulfate 324 mg PO TID 03/08/20 04/30/21 1 Day Ago His tory 324 MG] ~04/29/21 Tamsulosin [Flomax] 0.4 mg PO QDAY 03/08/20 04/30/21 1 Day Ago History ~04/29/21 amLODIPine 10 mg PO DAILY 03/08/20 04/30/21 1 Day Ago History ~04/29/21 Folic Acid [Folvite] 1 mg PO QDAY #30 tablet 03/09/20 04/30/21 1 Day Ago Rx ~04/29/21 Thiamine [Vitamin B-1] 100 mg PO QDAY #30 tablet 03/09/20 04/30/21 1 Day Ago Rx ~04/29/21 Review of Systems ROS unobtainable: due to mental status Exam - Constitutional Vitals: Temp Pulse Resp BP Pulse Ox 99.4 F 81 16 122/73 90 05/23/21 15:41 05/23/21 19:11 05/23/21 19:11 05/23/21 19:11 05/23/21 15:11 General appearance: Present: mild distress - EENT Eyes: Present: PERRL ENT: hearing intact, clear oral mucosa - Neck Neck: Present: supple, normal ROM - Respiratory Respiratory effort: normal Respiratory: bilateral: CTA - Cardiovascular Heart Sounds: Present: S1 & S2. Absent: rub, click - Extremities Extremities: pulses symmetrical, No edema Peripheral Pulses: within normal limits - Abdominal General gastrointestinal: Present: soft, non-tender, non-distended, normal bowel sounds Male genitourinary: Present: normal - Integumentary Integumentary: Present: clear, warm, dry - Musculoskeletal Musculoskeletal: gait normal, strength equal bilaterally - Psychiatric Psychiatric: no appropriate mood/affect, no intact judgment & insight, no memory intact, agitated - Neurologic Neurologic: CNII-XII intact, no focal deficits, moves all extremities, no gait normal HEART Score - HEART Score Troponin: Troponin T 0.032 ng/mL (0.00-0.029) H 05/23/21 10:38 Results - Labs CBC & Chem 7: 05/23/21 18:03 05/23/21 10:38 Labs: Abnormal lab results 05/23/21 05/23/21 05/23/21 Range/Units 10:38 10:38 10:38 Hgb (11.8-15.2) gm/dl Hct (35.5-45.6) % MCV (84-94) fl MCH (28-32) pg RDW (13.2-15.2) % Lymph % (Auto) (13.4-35.0) % Lymph # (Auto) (1.2-5.4) K/mm3 Seg Neutrophils % (40.0-70.0) % Potassium 5.2 H (3.6-5.0) mmol/L BUN 32 H (9-20) mg/dL Creatinine 1.5 H (0.8-1.3) mg/dL Total Creatine Kinase 224 H (55-170) units/L CK-MB (CK-2) 10.5 H (0.0-4.0) ng/mL CK-MB (CK-2) Rel Index 4.6 H (0-4) Troponin T 0.032 H (0.00-0.029) ng/mL Albumin 3.5 L (3.9-5) g/dL HDL Cholesterol 115 H (40-59) mg/dL Plasma/Serum Alcohol 0.32 H (0-0.07) % 07/20/21 Range/Units 18:03 Hgb 11.2 L (11.8-15.2) gm/dl Hct 33.9 L (35.5-45.6) % MCV 83 L (84-94) fl MCH 27 L (28-32) pg RDW 15.9 H (13.2-15.2) % Lymph % (Auto) 10.5 L (13.4-35.0) % Lymph # (Auto) 0.9 L (1.2-5.4) K/mm3 Seg Neutrophils % 83.5 H (40.0-70.0) % Potassium (3.6-5.0) mmol/L BUN (9-20) mg/dL Creatinine (0.8-1.3) mg/dL Total Creatine Kinase (55-170) units/L CK-MB (CK-2) (0.0-4.0) ng/mL CK-MB (CK-2) Rel Index (0-4) Troponin T (0.00-0.029) ng/mL Albumin (3.9-5) g/dL HDL Cholesterol (40-59) mg/dL Plasma/Serum Alcohol (0-0.07) % Assessment and Plan - Patient Problems (1) NSTEMI (non-ST elevated myocardial infarction) Current Visit: Yes Status: Acute Plan to address problem: Chest pain protocol: Patient mated to telemetry, serial cardiac enzymes, EKG, supportive care. Cardiology team consulted in ED. Morphine, submental oxygen, nitro, aspirin. (2) JUAN (acute kidney injury) Current Visit: Yes Status: Acute Plan to address problem: IV fluid resuscitation therapy, BMP, repeat BMP in a.m. to monitor serum creatinine as well as GFR. (3) Alcohol intoxication Current Visit: Yes Status: Acute Qualifiers: Complication of substance-induced condition: with delirium Qualified Code(s): F10.921 - Alcohol use, unspecified with intoxication delirium Plan to address problem: Alcohol withdrawal protocol: CIWA protocol, thiamine, folate, multivitamin therapy. (4) Metabolic encephalopathy Current Visit: Yes Status: Acute Plan to address problem: CT scan head, neuro check, seizure precaution, aspiration precaution, fall precautions. (5) Malnutrition Current Visit: Yes Status: Acute Qualifiers: Protein-calorie malnutrition severity: moderate Plan to address problem: Increase protein intake, dietary segmentation. (6) DVT prophylaxis Current Visit: No Status: Acute Plan to address problem: SCD to bilateral lower extremities while in bed, patient is ambulatory (7) Advance care planning Current Visit: Yes Status: Acute Plan to address problem: Disease education conducted, care plan discussed, diagnosis discussed, prognosis discussed, +30 minutes.
[2021-05-23] MEDS ORDERED: ASPIRIN 325 MG TAB PO ONE (19:56)
[2021-05-23] MEDS ORDERED: ONDANSETRON 4 MG/2 ML INJ IV PRN (19:58)
[2021-05-23] MEDS ORDERED: ALBUTEROL 2.5 MG/3 ML NEBU IH PRN (19:58)
[2021-05-23] MEDS ORDERED: HYDROmorphone 1 MG/1 ML INJ IV PRN (19:58)
[2021-05-23] MEDS ORDERED: oxyCODONE /ACETAMINOPHEN 5-325MG TAB PO PRN (19:58)
[2021-05-23] MEDS ORDERED: ACETAMINOPHEN 325 MG TAB PO PRN ×2 (19:58→21:13)
[2021-05-23] MEDS ORDERED: LORazepam 2 MG/ML VIAL IV PRN (20:01)
[2021-05-23] MEDS ORDERED: traMADol 50 MG TAB PO PRN (21:13)
[2021-05-23] MEDS ORDERED: NITROGLYCERIN 0.4 MG TAB SUBL SL PRN (21:13)
[2021-05-23 22:17] LABS: Amphetamine Screen,Urine Negative; Benzodiazepines Screen,Urine Negative; Cocaine Screen,Urine Negative; Methadone Screen,Urine Negative; Opiate Screen,Urine Negative
[2021-05-23 22:36] LABS: Cannabinoid Screen,Urine Positive
[2021-05-24] MEDS ORDERED: NON-FORMULARY EACH (Ferrous Sulfate [Ferrous Sulfate 324 Mg] 324 MG Tablet.Dr) PO SCH (08:00)
--- NOTE | 2021-05-24 08:20 | Progress Note ---
Assessment and Plan Assessment and plan: Chest pain. Chronic kidney disease. EtOH abuse. Metabolic encephalopathy Protein calorie malnutrition. 05/24/2021. Patient has elevated troponin but appears to be chronic. Patient was noted with elevated troponin in March 2020. Also, patient has elevated creatinine that appears to be related to CKD. Patient appears to be at baseline creatinine of 1.5 patient's creatinine was in the range of 1.5 to 2.0 from 2019. Cardiology consultation is pending. Ischemic evaluation per cardiology. Check ammonia level. Continue CIWA protocol History Interval history: No new issues overnight. Hospitalist Physical - Constitutional Vitals: Temp Pulse Resp BP Pulse Ox 98.0 F 81 18 136/77 99 05/24/21 04:53 05/24/21 07:45 05/24/21 04:53 05/24/21 04:53 05/24/21 04:53 General appearance: Present: no acute distress - EENT Eyes: Present: PERRL, EOM intact ENT: hearing intact, clear oral mucosa, dentition normal - Neck Neck: Present: supple, normal ROM - Respiratory Respiratory effort: normal Respiratory: bilateral: CTA - Cardiovascular Rhythm: regular Heart Sounds: Present: S1 & S2. Absent: gallop, rub - Extremities Extremities: no ischemia, No edema, Full ROM - Abdominal General gastrointestinal: soft, non-tender, non-distended, normal bowel sounds - Integumentary Integumentary: Present: clear, warm, dry - Neurologic Neurologic: CNII-XII intact, moves all extremities HEART Score - HEART Score Troponin: Troponin T 0.026 ng/mL (0.00-0.029) 05/24/21 05:46 Results - Labs CBC & Chem 7: 05/23/21 18:03 05/23/21 10:38 Labs: Laboratory Last Values WBC 9.0 K/mm3 (4.5-11.0) 05/23/21 18:03 RBC 4.11 M/mm3 (3.65-5.03) 05/23/21 18:03 Hgb 11.2 gm/dl (11.8-15.2) L 05/23/21 18:03 Hct 33.9 % (35.5-45.6) L 05/23/21 18:03 MCV 83 fl (84-94) L 05/23/21 18:03 MCH 27 pg (28-32) L 05/23/21 18:03 MCHC 33 % (32-34) 05/23/21 18:03 RDW 15.9 % (13.2-15.2) H 05/23/21 18:03 Plt Count 187 K/mm3 (140-440) 05/23/21 18:03 Lymph % (Auto) 10.5 % (13.4-35.0) L 05/23/21 18:03 [place] % (Auto) 4.9 % (0.0-7.3) 05/23/21 18:03 Eos % (Auto) 1.0 % (0.0-4.3) 05/23/21 18:03 Baso % (Auto) 0.1 % (0.0-1.8) 05/23/21 18:03 Lymph # (Auto) 0.9 K/mm3 (1.2-5.4) L 05/23/21 18:03 [place] # (Auto) 0.4 K/mm3 (0.0-0.8) 05/23/21 18:03 Eos # (Auto) 0.1 K/mm3 (0.0-0.4) 05/23/21 18:03 Baso # (Auto) 0.0 K/mm3 (0.0-0.1) 05/23/21 18:03 Seg Neutrophils % 83.5 % (40.0-70.0) H 05/23/21 18:03 Seg Neutrophils # 7.5 K/mm3 (1.8-7.7) 05/23/21 18:03 Sodium 138 mmol/L (137-145) 05/23/21 10:38 Potassium 5.2 mmol/L (3.6-5.0) H 05/23/21 10:38 Chloride 102.5 mmol/L (98-107) 05/23/21 10:38 Carbon Dioxide 22 mmol/L (22-30) 05/23/21 10:38 Anion Gap 19 mmol/L 05/23/21 10:38 BUN 32 mg/dL (9-20) H 05/23/21 10:38 Creatinine 1.5 mg/dL (0.8-1.3) H 05/23/21 10:38 Estimated GFR 57 ml/min 05/23/21 10:38 BUN/Creatinine Ratio 21 % 05/23/21 10:38 Glucose 87 mg/dL (75-100) 05/23/21 10:38 Calcium 8.5 mg/dL (8.4-10.2) 05/23/21 10:38 Total Bilirubin 0.30 mg/dL (0.1-1.2) 05/23/21 10:38 AST 22 units/L (5-40) 05/23/21 10:38 ALT 8 units/L (7-56) 05/23/21 10:38 Alkaline Phosphatase 122 units/L (35-129) 05/23/21 10:38 Total Creatine Kinase 224 units/L (55-170) H 05/23/21 10:38 CK-MB (CK-2) 10.5 ng/mL (0.0-4.0) H 05/23/21 10:38 CK-MB (CK-2) Rel Index 4.6 (0-4) H 05/23/21 10:38 Troponin T 0.026 ng/mL (0.00-0.029) 05/24/21 05:46 Total Protein 8.1 g/dL (6.3-8.2) 05/23/21 10:38 Albumin 3.5 g/dL (3.9-5) L 05/23/21 10:38 Albumin/Globulin Ratio 0.8 % 05/23/21 10:38 Triglycerides 78 mg/dL (2-149) 05/23/21 10:38 Cholesterol 176 mg/dL (50-199) 05/23/21 10:38 LDL Cholesterol Direct 53 mg/dL (50-130) 05/23/21 10:38 HDL Cholesterol 115 mg/dL (40-59) H 05/23/21 10:38 Cholesterol/HDL Ratio 1.53 % 05/23/21 10:38 Urine Opiates Screen Negative 05/23/21 21:37 Urine Methadone Screen Negative 05/23/21 21:37 Ur Barbiturates Screen Negative 05/23/21 21:37 Ur Phencyclidine Scrn Negative 05/23/21 21:37 Ur Amphetamines Screen Negative 05/23/21 21:37 U Benzodiazepines Scrn Negative 05/23/21 21:37 Urine Cocaine Screen Negative 05/23/21 21:37 U Marijuana (THC) Screen Positive 05/23/21 21:37 Drugs of Abuse Note Disclamer 05/23/21 21:37 Plasma/Serum Alcohol 0.32 % (0-0.07) H 05/23/21 10:38 Samuels/IV: Voiding Method Toilet Active Medications - Current Medications Current Medications: Generic Name Dose Route Start Last Admin Trade Name Freq PRN Reason Stop Dose Admin Acetaminophen 650 mg 05/23/21 19:58 Acetaminophen 325 Mg Tab PO Q4H PRN Pain MILD(1-3)/Fever >100.5/GENTILE Albuterol 2.5 mg 05/23/21 19:58 Albuterol 2.5 Mg/3 Ml Nebu IH Q4HRT PRN Shortness Of Breath Amlodipine Besylate 10 mg 05/24/21 10:00 Amlodipine 10 Mg Tab PO DAILY [facility] Aspirin 81 mg 05/24/21 10:00 Aspirin 81 Mg Tab Chew PO QDAY [facility] Atorvastatin Calcium 20 mg 05/23/21 22:00 05/24/21 07:56 Atorvastatin 20 Mg Tab PO Not Given QHS [facility] Chlorthalidone 50 mg 05/24/21 10:00 Chlorthalidone 25 Mg Tab PO QDAY [facility] Ferrous Sulfate 325 mg 05/24/21 08:00 Ferrous Sulfate 325 Mg Tab PO TID [facility] Folic Acid 1 mg 05/24/21 10:00 Folic Acid 1 Mg Tab PO QDAY [facility] Hydromorphone HCl 0.5 mg 05/23/21 19:58 Hydromorphone 1 Mg/1 Ml Inj IV Q12H PRN Pain , Severe (7-10) Sodium Chloride 1,000 mls @ 100 mls/hr 05/23/21 20:15 Nacl 0.9% 1000 Ml IV DIRECT MISHA Lorazepam 2 mg 05/23/21 20:01 Lorazepam 2 Mg/Ml Vial IV Q1HR PRN CIWA-Ar 8-15 Nitroglycerin 0.4 mg 05/23/21 21:13 Nitroglycerin 0.4 Mg Tab Subl SL Q5M PRN Chest Pain Ondansetron HCl 4 mg 05/23/21 19:58 Ondansetron 4 Mg/2 Ml Inj IV Q8H PRN Nausea And Vomiting Oxycodone/Acetaminophen 1 tab 05/23/21 19:58 Oxycodone /Acetaminophen 5-325mg Tab PO Q12H PRN Pain, Moderate (4-6) Sodium Chloride 10 ml 05/23/21 22:00 05/24/21 07:57 Sodium Chloride 0.9% 10 Ml Flush Syringe IV Not Given BID MISHA Sodium Chloride 10 ml 05/23/21 19:58 Sodium Chloride 0.9% 10 Ml Flush Syringe IV PRN PRN LINE FLUSH Sodium Chloride 10 ml 05/23/21 21:13 Sodium Chloride 0.9% 10 Ml Flush Syringe IV PRN PRN LINE FLUSH Tamsulosin HCl 0.4 mg 05/24/21 10:00 Tamsulosin 0.4 Mg Cap PO QDAY [facility] Thiamine HCl 100 mg 05/24/21 10:00 Thiamine 100 Mg Tab PO QDAY [facility] Tramadol HCl 50 mg 05/23/21 21:13 Tramadol 50 Mg Tab PO Q6H PRN Pain, Moderate (4-6)
[2021-05-24] MEDS: SODIUM CHLORIDE 0.9% 1000 ML 1,000 ML IV SCH ×2 (09:10→20:39)
[2021-05-24] MEDS: TAMSULOSIN 0.4 MG CAP PO SCH (09:11)
[2021-05-24] MEDS: ASPIRIN 81 MG TAB CHEW PO SCH (09:11)
[2021-05-24] MEDS: THIAMINE 100 MG TAB PO SCH (09:11)
[2021-05-24] MEDS: FOLIC ACID 1 MG TAB PO SCH (09:11)
[2021-05-24] MEDS: amLODIPine 10 MG TAB PO SCH (09:11)
[2021-05-24] MEDS: FERROUS SULFATE 325 MG TAB PO SCH ×3 (09:11→20:35)
[2021-05-24] MEDS: CHLORTHALIDONE 25 MG TAB PO SCH (09:12)
[2021-05-24] MEDS ORDERED: CHLORTHALIDONE 50 MG PO SCH (10:00)
--- NOTE | 2021-05-24 13:56 | Consultation ---
History of Present Illness Consult date: 05/24/21 Consult reason: other (NSTEMI) History of present illness: Patient is a 65 y/o male with a pmhx of EOTH abuse, HTN, COPD, CKD, anemia who was brought to the ED for alcohol intoxification. History is taken from chart because patient had AMS due to intoxification when brought to the ED. Upon arrival to the ED the patient had elevated troponins, metabolic encephalopathy, and a suspected JUAN. Currently patient has no cardiac complaints Past History Past Medical History: COPD, hypertension Past Surgical History: No surgical history Social history: single, smoking, alcohol abuse Family history: diabetes, hypertension Medications and Allergies Allergies Allergy/AdvReac Type Severity Reaction Status Date / Time No Known Allergies Allergy Unverified 10/16/18 16:26 Home Medications Medication Instructions Recorded Confirmed Last Taken Type Aspirin [Aspirin BABY CHEW TAB] 81 mg PO QDAY 03/08/20 04/30/21 1 Day Ago Hi story ~04/29/21 AtorvaSTATin [Lipitor] 20 mg PO QHS 03/08/20 04/30/21 1 Day Ago History ~04/29/21 Chlorthalidone 50 mg PO QDAY 03/08/20 04/30/21 1 Day Ago History ~04/29/21 Ferrous Sulfate [Ferrous Sulfate 324 mg PO TID 03/08/20 04/30/21 1 Day Ago History 324 MG] ~04/29/21 Tamsulosin [Flomax] 0.4 mg PO QDAY 03/08/20 04/30/21 1 Day Ago History ~04/29/21 amLODIPine 10 mg PO DAILY 03/08/20 04/30/21 1 Day Ago History ~04/29/21 Folic Acid [Folvite] 1 mg PO QDAY #30 tablet 03/09/20 04/30/21 1 Day Ago Rx ~04/29/21 Thiamine [Vitamin B-1] 100 mg PO QDAY #30 tablet 03/09/20 04/30/21 1 Day Ago Rx ~04/29/21 Active Meds: Active Medications Acetaminophen (Acetaminophen 325 Mg Tab) 650 mg PO Q4H PRN PRN Reason: Pain MILD(1-3)/Fever >100.5/GENTILE Albuterol (Albuterol 2.5 Mg/3 Ml Nebu) 2.5 mg IH Q4HRT PRN PRN Reason: Shortness Of Breath Amlodipine Besylate (Amlodipine 10 Mg Tab) 10 mg PO DAILY [facility] Last Admin: 05/24/21 09:11 Dose: 10 mg Documented by: Aspirin (Aspirin 81 Mg Tab Chew) 81 mg PO QDAY [facility] Last Admin: 05/24/21 09:11 Dose: 81 mg Documented by: Atorvastatin Calcium (Atorvastatin 20 Mg Tab) 20 mg PO QHS [facility] Last Admin: 05/24/21 07:56 Dose: Not Given Documented by: Chlorthalidone (Chlorthalidone 25 Mg Tab) 50 mg PO QDAY [facility] Last Admin: 05/24/21 09:12 Dose: 50 mg Documented by: Ferrous Sulfate (Ferrous Sulfate 325 Mg Tab) 325 mg PO TID [facility] Last Admin: 05/24/21 09:11 Dose: 325 mg Documented by: Folic Acid (Folic Acid 1 Mg Tab) 1 mg PO QDAY [facility] Last Admin: 05/24/21 09:11 Dose: 1 mg Documented by: Hydromorphone HCl (Hydromorphone 1 Mg/1 Ml Inj) 0.5 mg IV Q12H PRN PRN Reason: Pain , Severe (7-10) Sodium Chloride (Nacl 0.9% 1000 Ml) 1,000 mls @ 100 mls/hr IV DIRECT [facility] Last Admin: 05/24/21 09:10 Dose: 100 mls/hr Documented by: Lorazepam (Lorazepam 2 Mg/Ml Vial) 2 mg IV Q1HR PRN PRN Reason: CIWA-Ar 8-15 Nitroglycerin (Nitroglycerin 0.4 Mg Tab Subl) 0.4 mg SL Q5M PRN PRN Reason: Chest Pain Ondansetron HCl (Ondansetron 4 Mg/2 Ml Inj) 4 mg IV Q8H PRN PRN Reason: Nausea And Vomiting Oxycodone/Acetaminophen (Oxycodone /Acetaminophen 5-325mg Tab) 1 tab PO Q12H PRN PRN Reason: Pain, Moderate (4-6) Sodium Chloride (Sodium Chloride 0.9% 10 Ml Flush Syringe) 10 ml IV BID [facility] Last Admin: 05/24/21 09:12 Dose: 10 ml Documented by: Sodium Chloride (Sodium Chloride 0.9% 10 Ml Flush Syringe) 10 ml IV PRN PRN PRN Reason: LINE FLUSH Tamsulosin HCl (Tamsulosin 0.4 Mg Cap) 0.4 mg PO QDAY [facility] Last Admin: 05/24/21 09:11 Dose: 0.4 mg Documented by: Thiamine HCl (Thiamine 100 Mg Tab) 100 mg PO QDAY [facility] Last Admin: 05/24/21 09:11 Dose: 100 mg Documented by: Tramadol HCl (Tramadol 50 Mg Tab) 50 mg PO Q6H PRN PRN Reason: Pain, Moderate (4-6) Review of Systems All systems: negative Ears, nose, mouth and throat: no ear pain, no ear discharge, no tinnitis Cardiovascular: no chest pain, no orthopnea, no palpitations, no rapid/irregular heart beat Respiratory: no cough, no cough with sputum, no excessive sputum, no shortness of breath, no dyspnea on exertion Gastrointestinal: no abdominal pain, no nausea, no vomiting, no diarrhea Musculoskeletal: no neck stiffness, no neck pain, no shooting arm pain, no arm numbness/tingling, no low back pain Integumentary: no rash, no pruritis, no redness Neurological: no head injury, no transient paralysis, no paralysis, no weakness Psychiatric: no anxiety Endocrine: no cold intolerance, no heat intolerance Hematologic/Lymphatic: no easy bruising, no easy bleeding Physical Examination Last Vital Signs Temp 98.1 F 05/24/21 09:32 Pulse 71 05/24/21 09:32 Resp 18 05/24/21 09:32 BP 154/76 05/24/21 09:32 Pulse Ox 99 05/24/21 09:32 General appearance: no acute distress HEENT: Positive: PERRL Neck: Positive: trachea midline Cardiac: Positive: Reg Rate and Rhythm, S1/S2 Lungs: Positive: clear to auscultation, Normal Breath Sounds Neuro: Positive: Grossly Intact Abdomen: Positive: Soft, Active Bowel Sounds Extremities: Present: normal, upper extr. pulses, lower extr. pulses. Absent: edema Results 05/23/21 18:03 05/23/21 10:38 Cardiac Enzymes 05/23/21 Range/Units 10:38 CK-MB (CK-2) 10.5 H (0.0-4.0) ng/mL Lipids 05/23/21 Range/Units 10:38 Triglycerides 78 (2-149) mg/dL Cholesterol 176 (50-199) mg/dL HDL Cholesterol 115 H (40-59) mg/dL Cholesterol/HDL Ratio 1.53 % CBC 05/23/21 Range/Units 18:03 WBC 9.0 (4.5-11.0) K/mm3 RBC 4.11 (3.65-5.03) M/mm3 Hgb 11.2 L (11.8-15.2) gm/dl Hct 33.9 L (35.5-45.6) % Plt Count 187 (140-440) K/mm3 Lymph # (Auto) 0.9 L (1.2-5.4) K/mm3 [place] # (Auto) 0.4 (0.0-0.8) K/mm3 Eos # (Auto) 0.1 (0.0-0.4) K/mm3 Baso # (Auto) 0.0 (0.0-0.1) K/mm3 - Imaging and Cardiology Echo: pending EKG: report reviewed, image reviewed EKG interpretations - EKG Sinus rhythms and dysrhythmias: sinus rhythm Assessment and Plan Mildly Elevated troponins * EKG shows no signs of acute ischemic changes * Likely 2/2 JUAN on CKD as result from intoxification * Echo pending * Previous echo reviewed 01/2020 shows EF 50-55% and mild mitral regurgitation * Plan for lexiscan NPI stress test for ischemic evaluation HTN * Optimize antihypertensive regimen: continue amlodipine 10mg QD, chlorthalidone 50mg QD Metabolic encephalopathy 2/2 ETOB Abuse * Patient on CIWA protocol per primary team * Manage by primary care Patient seen in conjunction with Dr. Eid who agrees with assessment and plan. We will continue to follow - Patient Problems (1) JUAN (acute kidney injury) Current Visit: Yes Status: Acute (2) Alcohol abuse Current Visit: Yes Status: Acute (3) Alcohol intoxication Current Visit: Yes Status: Acute Qualifiers: Complication of substance-induced condition: with delirium Qualified Code(s): F10.921 - Alcohol use, unspecified with intoxication delirium (4) Troponin level elevated Current Visit: Yes Status: Acute (5) Hyperkalemia Current Visit: No Status: Acute
[2021-05-25 06:14] LABS: Basophils % (Auto) 0.5 % (0.0-1.8); Eosinophils # (Auto) 0.1 K/mm3 (0.0-0.4); Eosinophils % (Auto) 1.3 % (0.0-4.3); Hematocrit 29.6 % (35.5-45.6); Hemoglobin 9.8 gm/dl (11.8-15.2); Lymphocytes # (Auto) 1.2 K/mm3 (1.2-5.4); Lymphocytes % (Auto) 15.2 % (13.4-35.0); Mean Corpuscular HGB Conc 33 % (32-34); Mean Corpuscular Volume 82 fl (84-94); Monocytes # (Auto) 0.7 K/mm3 (0.0-0.8); Platelet Count 205 K/mm3 (140-440); Red Blood Count 3.61 M/mm3 (3.65-5.03); Red Cell Distribution Width 16.3 % (13.2-15.2)
[2021-05-25 06:29] LABS: BUN/Creatinine Ratio 18; Blood Urea Nitrogen 24 mg/dL (9-20); Calcium 8.4 mg/dL (8.4-10.2); Hemolysis Index 3
[2021-05-25] MEDS ORDERED: REGADENOSON 0.4 MG/5 ML INJ IV ONE (06:52)
[2021-05-25] MEDS: SODIUM CHLORIDE 0.9% 1000 ML 1,000 ML IV SCH (07:42)
--- NOTE | 2021-05-25 08:56 | Discharge Summary ---
Providers - Providers Date of Admission: 05/23/21 19:58 Date of discharge: 05/25/21 Attending physician: KHANH LAI 05/23/21 Consult to Cardiac Rehabilitation [CONS] Routine Reason For Exam: Phase I 05/23/21 10:28 Consult to Case Management [CONS] Stat Services Needed at Discharge: Explosives Truck Driver Notified:: n Additional Physician Instructions: Homelessness 05/23/21 21:13 Consult to Cardiology [CONS] Routine Consulting Provider: TIAN CUEVAS Reason For Exam: NSTEMI Primary care physician: WING COMMANDER Hospitalization Reason for admission: CP, ETOH abuse Condition: Fair Hospital course: Patient is a 65 y/o male with a pmhx of EOTH abuse, HTN, COPD, CKD, anemia who was brought to the ED for alcohol intoxification. History is taken from chart because patient had AMS due to intoxification when brought to the ED. The patient reportedly complained of chest pain at that time. The patient was admitted with diagnosis of chest pain, elevated troponins, metabolic encephalopathy, and a suspected JUAN. Currently patient has no cardiac complaints. The patient received IV fluid hydration with resolution of the acute kidney injury that was secondary to vasomotor nephropathy. Creatinine was normalized to a value of 1.3. The patient's encephalopathy resolved after alcohol intoxication resolved. Patient was placed on CIWA protocol and returned back to baseline mental status. Cardiology saw the patient in consultation and recommended a stress test. If stress test is negative, patient then will be discharged home. Dedicated discharge time 32 minutes. Disposition: DC- TO HOME OR SELFCARE Final Discharge Diagnosis (Prints w/discharge instructions): Acute kidney injury, vasomotor nephropathy, EtOH abuse, elevated troponins, metabolic encephalopathy Core Measure Documentation - Palliative Care Palliative Care/ Comfort Measures: Not Applicable - Core Measures Any of the following diagnoses?: none Exam - Constitutional Vitals: Temp Pulse Resp BP Pulse Ox 97.6 F 72 17 132/80 100 05/25/21 03:58 05/25/21 03:58 05/25/21 03:58 05/25/21 03:58 05/25/21 03:58 General appearance: Present: no acute distress, well-nourished - EENT Eyes: Present: PERRL ENT: hearing intact, clear oral mucosa - Neck Neck: Present: supple, normal ROM - Respiratory Respiratory effort: normal Respiratory: bilateral: CTA - Cardiovascular Heart Sounds: Present: S1 & S2. Absent: rub, click - Extremities Extremities: pulses symmetrical, No edema Peripheral Pulses: within normal limits - Abdominal General gastrointestinal: Present: soft, non-tender, non-distended, normal bowel sounds Male genitourinary: Present: normal - Integumentary Integumentary: Present: clear, warm, dry - Musculoskeletal Musculoskeletal: gait normal, strength equal bilaterally - Psychiatric Psychiatric: appropriate mood/affect, intact judgment & insight - Neurologic Neurologic: CNII-XII intact, moves all extremities Plan Activity: advance as tolerated Weight Bearing Status: Weight Bear as Tolerated Diet: regular Follow up with: PRIMARY CARE, [Primary Care Provider] - 3-5 Days SEGUNDO WILHELM MD [Staff Physician] - 7 Days Prescriptions: amLODIPine 10 mg PO DAILY #30 Aspirin [Aspirin BABY CHEW TAB] 81 mg PO QDAY #30 Chlorthalidone 50 mg PO QDAY #30 Ferrous Sulfate [Ferrous Sulfate 324 MG] 324 mg PO TID #90 Tamsulosin [Flomax] 0.4 mg PO QDAY #30 cap Folic Acid [Folvite] 1 mg PO QDAY #30 tablet AtorvaSTATin [Lipitor] 20 mg PO QHS #30 Thiamine [Vitamin B-1] 100 mg PO QDAY #30 tablet
[2021-05-25 11:00] VITALS: BP 125/69
--- NOTE | 2021-05-25 11:33 | Nuclear Medicine Report ---
APPROVED REPORT Exam: Nuclear Stress Test Indication: Chest pain Patient Location: [address] [place] [address] Room #: 473 Ht: 6 ft 0 in Wt: 150 lbs BSA: 1.88 m2 HR: 69 bpmBP: 145/85 mmHgBMI: 20.34 Rhythm: SINUS RHYTHM Stress Test Details Stress Test: Pharmacologic stress testing performed using 0.4 mg of regadenoson per 5 mL given IV over 10 seconds. HR Resting HR: 69 bpm Max HR Achieved: 113 bpm Max Heart Rate (APMHR): 157 bpm Target HR (85% APMHR): 133 bpm % of APMHR: 71 Recovery HR: 91 bpm HR response to stress: Normal HR response to stress BP Resting BP: 148/85 mmHg Max BP: 148/85 mmHg Recovery BP: 114/71 mmHg BP response to stress: Normal blood pressure response to stress. ECG Resting ECG: Sinus Rhythm ST Change: None Arrhythmia: None Clinical Reason for Termination: Completed protocol, Completed protocol, Maximal effort, ST changes, Chest pain/Anginal equivalent, Dyspnea, Dizziness, Leg pain/Claudication, Fatigue, Arrhythmias, Patient Request, Completed protocol Stress Symptoms: Dizziness NM EXAM: Myocardial Perfusion REST/STRESS Imaging Protocol: Rest Tc-99m/Stress Tc-99m 1 day Resting Data Rest SPECT myocardial perfusion imaging was performed in supine position 30 minutes following the intravenous injection of 10 mCi of Tc-99m Myoview. Time of rest injection: 0700 Pharmacologic Stress Pharmacologic stress test was performed by injecting Regadenoson 0.4 mg IV push followed by the intravenous injection of 28 mCi of Tc-99m Myoview. Time of stress injection: 10:000 Gated Stress SPECT was performed 45 minutes after stress injection. The images were gated to evaluate regional wall motion and calculate left ventricular ejection fraction. Study Quality Study: excellent Lung Uptake: Normal Study Data TID = 0.92. Perfusion Wall Motion The rest and stress images show normal left ventricular wall motion. Nuclear Conclusion ECG Findings: negative for ischemia Clinical Findings: negative for ischemia Nuclear Findings: negative for ischemia Exercise Capacity: not assessed Left Ventricular Function: normal Normal study. No scintigraphic evidence for myocardial ischemia or scar. Normal left ventricular size and function with no regional wall motion abnormalities.
[2021-05-25] MEDS: FERROUS SULFATE 325 MG TAB PO SCH (11:39)
--- NOTE | 2021-05-25 11:39 | Progress Note ---
Assessment and Plan 65-year-old male was found on the ground brought in and found to have alcohol intoxication acute on chronic renal sufficiency abnormal troponin suggested non- STEMI type II echocardiogram normally function without significant regurgitation. Stress test revealed no significant ischemia. Patient counseled about alcohol abuse. Maintain good hydration nutrition may be discharged from cardiovascular point of view follow primary care doctor - Patient Problems (1) JUAN (acute kidney injury) Current Visit: Yes Status: Acute (2) Alcohol intoxication Current Visit: Yes Status: Acute Qualifiers: Complication of substance-induced condition: with delirium Qualified Code(s): F10.921 - Alcohol use, unspecified with intoxication delirium (3) Malnutrition Current Visit: Yes Status: Acute Qualifiers: Protein-calorie malnutrition severity: moderate (4) Metabolic encephalopathy Current Visit: Yes Status: Acute (5) NSTEMI (non-ST elevated myocardial infarction) Current Visit: Yes Status: Acute (6) Alcoholic encephalopathy Current Visit: No Status: Acute (7) Anemia Current Visit: No Status: Acute Subjective Date of service: 05/25/21 Principal diagnosis: abnl trop Interval history: no chest pain Objective Vital Signs Temp Pulse Resp BP Pulse Ox 05/25/21 10:11 125/69 05/25/21 10:10 121/74 05/25/21 10:09 126/72 05/25/21 10:08 122/73 05/25/21 10:07 119/66 05/25/21 09:39 144/91 05/25/21 09:33 148/85 05/25/21 03:58 97.6 F 72 17 132/80 100 05/24/21 23:00 74 05/24/21 22:25 98.6 F 78 17 121/75 99 05/24/21 21:08 99 05/24/21 19:49 98.1 F 80 18 118/74 100 05/24/21 16:34 98.5 F 79 18 120/69 99 - Physical Examination HEENT: Positive: PERRL Neck: Positive: trachea midline Cardiac: Positive: Reg Rate and Rhythm Lungs: Positive: clear to auscultation Neuro: Positive: Grossly Intact Abdomen: Positive: Soft, Active Bowel Sounds Extremities: Present: normal, upper extr. pulses, lower extr. pulses. Absent: edema - Labs and Meds CBC 05/25/21 Range/Units 05:18 WBC 8.0 (4.5-11.0) K/mm3 RBC 3.61 L (3.65-5.03) M/mm3 Hgb 9.8 L (11.8-15.2) gm/dl Hct 29.6 L (35.5-45.6) % Plt Count 205 (140-440) K/mm3 Lymph # (Auto) 1.2 (1.2-5.4) K/mm3 [place] # (Auto) 0.7 (0.0-0.8) K/mm3 Eos # (Auto) 0.1 (0.0-0.4) K/mm3 Baso # (Auto) 0.0 (0.0-0.1) K/mm3 Comprehensive Metabolic Panel 05/25/21 Range/Units 05:18 Sodium 138 (137-145) mmol/L Potassium 4.5 (3.6-5.0) mmol/L Chloride 102.9 (98-107) mmol/L Carbon Dioxide 25 (22-30) mmol/L BUN 24 H (9-20) mg/dL Creatinine 1.3 (0.8-1.3) mg/dL Glucose 99 (75-100) mg/dL Calcium 8.4 (8.4-10.2) mg/dL - Imaging and Cardiology EKG: report reviewed, image reviewed Pharmacologic stress test: report reviewed (Normal myocardial perfusion no significant ischemia) Echo: report reviewed (normal lv function no significant regurgitation) - Telemetry EKG Rhythm: Sinus Rhythm - EKG Sinus rhythms and dysrhythmias: sinus rhythm
[2021-05-25] MEDS: amLODIPine 10 MG TAB PO SCH (11:54)
[2021-05-25] MEDS: TAMSULOSIN 0.4 MG CAP PO SCH (11:54)
[2021-05-25] MEDS: THIAMINE 100 MG TAB PO SCH (11:54)
[2021-05-25] MEDS: ASPIRIN 81 MG TAB CHEW PO SCH (11:54)
[2021-05-25] MEDS: FOLIC ACID 1 MG TAB PO SCH (11:54)
--- NOTE | 2021-05-25 12:14 | Electrocardiograph Report ---
[facility] Test Date: 2021-05-23 Test Time: 14:29:28 Pat Name: ROXI MURILLO Department: Room: A473 1 Gender: M Automation Operator: RONNY : 1955 Requested By: RAFI NAVARRO Order Number: [id number] Reading MD: Yenni Caputo Measurements Intervals [place] Rate: 84 P: 72 [place]: 160 QRS: 43 QRSD: 62 T: 28 QT: 357 QTc: 422 Interpretive Statements Sinus rhythm Compared to ECG 04/30/2021 02:15:07 No significant change Electronically Signed On 05-25-2021 12:13:37 EDT by Yenni Caputo
--- NOTE | 2021-05-25 12:22 | Electrocardiograph Report ---
[facility] Test Date: 2021-05-24 Test Time: 07:47:47 Pat Name: ROXI MURILLO Department: Room: A473 1 Gender: M Play Back Operator: NASIMA : 1955 Requested By: JUAN KLEIN Order Number: [id number] Reading MD: Yenni Caputo Measurements Intervals [place] Rate: 71 P: 50 [place]: 133 QRS: 52 QRSD: 77 T: 78 QT: 401 QTc: 435 Interpretive Statements Sinus rhythm Left ventricular hypertrophy Compared to ECG 05/23/2021 14:29:28 No significant Electronically Signed On 05-25-2021 12:21:57 EDT by Yenni Caputo
--- NOTE | 2021-05-25 12:24 | Electrocardiograph Report ---
[facility] Test Date: 2021-05-24 Test Time: 10:58:33 Pat Name: ROXI MURILLO Department: Room: A473 1 Gender: M Customer Experience Leader: NASIMA : 1955 Requested By: JUAN KLEIN Order Number: [id number] Reading MD: Yenni Caputo Measurements Intervals [place] Rate: 73 P: 55 [place]: 136 QRS: 55 QRSD: 146 T: 79 QT: 382 QTc: 422 Interpretive Statements Sinus rhythm Left ventricular hypertrophy Compared to ECG 05/24/2021 07:47:47 No significant changes Electronically Signed On 05-25-2021 12:23:57 EDT by Yenni Caputo
[2021-05-25] MEDS: CHLORTHALIDONE 25 MG TAB PO SCH (14:44)
== END 2021-05-25 18:39 | disposition home or self-care (01) | DRG 682 ==
LOC: ED 09:32 → 4A 19:58
PROVIDERS: ADMIT Internal Medicine; ATTEND Hospitalist
DX: N17.0 Acute kidney failure with tubular necrosis (principal); G93.41 Metabolic encephalopathy; I21.A1 Myocardial infarction type 2; E44.0 Moderate protein-calorie malnutrition; F10.121 Alcohol abuse with intoxication delirium; I69.351 Hemiplegia and hemiparesis following cerebral infarction affecting right dominant side; N18.9 Chronic kidney disease, unspecified; D64.9 Anemia, unspecified; E87.5 Hyperkalemia; F12.90 Cannabis use, unspecified, uncomplicated; I12.9 Hypertensive chronic kidney disease with stage 1 through stage 4 chronic kidney disease, or unspecified chronic kidney disease; J44.9 Chronic obstructive pulmonary disease, unspecified; Z82.49 Family history of ischemic heart disease and other diseases of the circulatory system; Z83.3 Family history of diabetes mellitus; Z79.82 Long term (current) use of aspirin; Z68.20 Body mass index [BMI] 20.0-20.9, adult; Z79.899 Other long term (current) drug therapy
CPT/HCPCS: 36415; 70450; 78452; 80048; 80053; 80061; 80307; 80320; 82140; 82550; 82553; 84484; 85025; 93005; 93017; 93306; G0378; A9270-GY; A9502; G0480; J2785; J3411; J3475; J7030

== ENCOUNTER 2021-11-11 22:56 | Emergency (ER) | payer MEDICARE ==
--- NOTE | 2021-11-11 23:16 | Emergency Department Report ---
ED General Adult HPI - General Stated complaint: NOT FEEL WELL Time Seen by Provider: 11/11/21 23:03 - History of Present Illness Initial comments: Patient presents by EMS because he is homeless. He was at a bus stop. He was kicked out of his apartment by his girlfriend. He states that he had no place to go. He was cold and hungry. He called an ambulance and the ambulance transported him here. He has no complaint otherwise. He is not having chest pain, trouble breathing, cough, congestion, vomiting, or diarrhea. He states that he is just cold and hungry. - Related Data Previous Rx's Medication Instructions Recorded Last Taken Type Aspirin [Aspirin BABY CHEW TAB] 81 mg PO QDAY #30 05/25/21 Unknown Rx AtorvaSTATin [Lipitor] 20 mg PO QHS #30 05/25/21 Unknown Rx Chlorthalidone 50 mg PO QDAY #30 05/25/21 Unknown Rx Ferrous Sulfate [Ferrous Sulfate 324 mg PO TID #90 05/25/21 Unknown Rx 324 MG] Folic Acid [Folvite] 1 mg PO QDAY #30 tablet 05/25/21 Unknown Rx Tamsulosin [Flomax] 0.4 mg PO QDAY #30 cap 05/25/21 Unknown Rx Thiamine [Vitamin B-1] 100 mg PO QDAY #30 tablet 05/25/21 Unknown Rx amLODIPine 10 mg PO DAILY #30 05/25/21 Unknown Rx Allergies Allergy/AdvReac Type Severity Reaction Status Date / Time No Known Allergies Allergy Unverified 10/16/18 16:26 ED Review of Systems ROS: Stated complaint: NOT FEEL WELL Other details as noted in HPI Comment: All other systems reviewed and negative Constitutional: denies: fever Eyes: denies: vision change ENT: denies: throat pain Respiratory: denies: cough Cardiovascular: denies: chest pain Endocrine: denies: unexplained weight loss Gastrointestinal: denies: abdominal pain Genitourinary: denies: dysuria Musculoskeletal: denies: back pain Skin: denies: rash Neurological: denies: headache Hematological/Lymphatic: denies: easy bruising ED Past Medical Hx - Past Medical History Hx Hypertension: Yes Hx CVA: Yes (R sided deficits) Hx Heart Attack/AMI: Yes Hx COPD: Yes Additional medical history: enlarged prostate - Surgical History Additional Surgical History: R knee - Family History Family history: hypertension - Social History Smoking Status: Current Every Day Smoker - Medications Home Medications: Home Medications Medication Instructions Recorded Confirmed Last Taken Type Aspirin [Aspirin BABY CHEW TAB] 81 mg PO QDAY #30 05/25/21 Unknown Rx AtorvaSTATin [Lipitor] 20 mg PO QHS #30 05/25/21 Unknown Rx Chlorthalidone 50 mg PO QDAY #30 05/25/21 Unknown Rx Ferrous Sulfate [Ferrous Sulfate 324 mg PO TID #90 05/25/21 Unknown Rx 324 MG] Folic Acid [Folvite] 1 mg PO QDAY #30 tablet 05/25/21 Unknown Rx Tamsulosin [Flomax] 0.4 mg PO QDAY #30 cap 05/25/21 Unknown Rx Thiamine [Vitamin B-1] 100 mg PO QDAY #30 tablet 05/25/21 Unknown Rx amLODIPine 10 mg PO DAILY #30 05/25/21 Unknown Rx ED Physical Exam - General Limitations: No Limitations, Other (Pulse ox noted and normal) General appearance: alert, in no apparent distress, other (Disheveled) - Head Head exam: Present: atraumatic, normocephalic - Eye Eye exam: Present: normal appearance, EOMI - ENT ENT exam: Present: normal orophraynx, normal external ear exam - Neck Neck exam: Present: normal inspection. Absent: meningismus - Respiratory Respiratory exam: Present: normal lung sounds bilaterally. Absent: respiratory distress - Cardiovascular Cardiovascular Exam: Present: regular rate, normal rhythm - GI/Abdominal GI/Abdominal exam: Present: soft. Absent: tenderness - Extremities Exam Extremities exam: Present: normal capillary refill - Back Exam Back exam: Absent: CVA tenderness (R), CVA tenderness (L) - Neurological Exam Neurological exam: Present: alert, oriented X3, CN II-XII intact. Absent: reflexes normal - Psychiatric Psychiatric exam: Present: normal affect, normal mood - Skin Skin exam: Present: warm, dry ED Course - Reevaluation(s) Reevaluation #1: 11/11/21 23:15 EMS was met upon arrival. Patient has no complaints. He was subsequently discharged. They had obtained a blood sugar. Old records noted. ED Medical Decision Making - Medical Decision Making Patient presented by EMS because he was homeless and had no place to go. He has no complaint. There is no medical reason for him to be in the emergency department. He is not having chest pain or trouble breathing. He has no cough or congestion. He states that he is just cold and would like something to eat. Based on this, he was discharged from the emergency department. He does not need any active medical care. Critical Care Time: No Critical care attestation.: If time is entered above; I have spent that time in minutes in the direct care of this critically ill patient, excluding procedure time. ED Disposition Clinical Impression: Homeless Disposition: HOME / SELF CARE / HOMELESS Is pt being admited?: No Condition: Stable Instructions: Stress, Adult Additional Instructions: Return for problems. Follow-up with your regular doctor. Referrals: MARQUES OLIVER MD [Staff Physician] - 3-5 Days PRIMARY CAREMD [Referring] - 3-5 Days
== END 2021-11-12 01:00 | disposition home or self-care (01) ==
LOC: ED 22:56
DX: J00 Acute nasopharyngitis [common cold] (principal); Z59.00 Homelessness unspecified; I10 Essential (primary) hypertension; Z86.73 Personal history of transient ischemic attack (TIA), and cerebral infarction without residual deficits; J44.9 Chronic obstructive pulmonary disease, unspecified; N40.0 Benign prostatic hyperplasia without lower urinary tract symptoms; Z98.890 Other specified postprocedural states; F17.200 Nicotine dependence, unspecified, uncomplicated
CPT/HCPCS: 99282

== ENCOUNTER 2022-07-04 09:32 | Inpatient (IN) | payer MEDICARE ==
[2022-07-04] MEDS ORDERED: DEXTROSE 50% IN WATER (25GM) 50 ML SYRINGE IV PRN (10:37)
--- NOTE | 2022-07-04 10:38 | Emergency Department Report ---
ED General Adult HPI - General Chief complaint: Weakness Stated complaint: weakness Source: patient, EMS ( EMS documentation not available at time of chart dictation ), RN notes reviewed, old records reviewed Mode of arrival: Stretcher Limitations: Physical Limitation - History of Present Illness Initial comments: The patient was evaluated in the emergency department for symptoms described in the history of present illness. He/she was evaluated in the context of the global COVID-19 pandemic, which necessitated consideration that the patient might be at risk for infection with the virus that causes COVID-19. Institutional protocols and algorithms that pertain to the evaluation of patients at risk for COVID-19 are in a state of rapid change based on information released by regulatory bodies including the CDC and federal and state organizations. These policies and algorithms were followed during the patient's care in the emergency department. Please note that these policies, procedures and recommendations changed on a rapid basis. This patient is a 66-year-old gentleman who is brought to the hospital by emergency medical services, because of apparently falling on the ground, and not being able to get up. His glucose was reportedly 72, he was given oral glucose and this improved his glucose to 91. The patient currently denies headache, neck pain, chest pain, abdominal pain, shortness of breath. He is not homicidal or suicidal. He is not quite sure how he fell on the ground. The patient is a poor historian. The patient is not accompanied by friends or family at this time information or additional history. In the emergency room, the patient is f ound to be hypothermic with a core temperature of 91 degrees, and he is found to have acute renal insufficiency. The patient is currently asking to eat and drink. The patient is moving 4 extremities -: unknown Consistency: constant Improves with: rest Worsens with: movement - Related Data Previous Rx's Medication Instructions Recorded Last Taken Type Aspirin [Aspirin BABY CHEW TAB] 81 mg PO QDAY #30 05/25/21 03/28/22 20:00 Rx AtorvaSTATin [Lipitor] 20 mg PO QHS #30 05/25/21 03/28/22 20:00 Rx Chlorthalidone 50 mg PO QDAY #30 05/25/21 03/28/22 20:00 Rx Ferrous Sulfate [Ferrous Sulfate 324 mg PO TID #90 05/25/21 03/28/22 20:00 Rx 324 MG] Folic Acid [Folvite] 1 mg PO QDAY #30 tablet 05/25/21 03/28/22 20:00 Rx Tamsulosin [Flomax] 0.4 mg PO QDAY #30 cap 05/25/21 03/28/22 20:00 Rx Thiamine [Vitamin B-1] 100 mg PO QDAY #30 tablet 05/25/21 03/28/22 20:00 Rx amLODIPine 10 mg PO DAILY #30 05/25/21 03/28/22 20:00 Rx Allergies Allergy/AdvReac Type Severity Reaction Status Date / Time No Known Allergies Allergy Verified 07/04/22 09:40 ED Review of Systems ROS: Stated complaint: RT LEG PAIN Other details as noted in HPI Constitutional: malaise. denies: fever Eyes: denies: eye discharge ENT: denies: congestion Respiratory: denies: cough Cardiovascular: denies: chest pain Gastrointestinal: denies: abdominal pain Musculoskeletal: myalgia Neurological: weakness Psychiatric: denies: homicidal thoughts, suicidal thoughts ED Past Medical Hx - Past Medical History Hx Hypertension: Yes Hx CVA: Yes (R sided deficits) Hx Heart Attack/AMI: Yes Hx COPD: Yes Additional medical history: enlarged prostate - Surgical History Additional Surgical History: R knee - Social History Smoking Status: Current Every Day Smoker - Medications Home Medications: Home Medications Medication Instructions Recorded Confirmed Last Taken Type Aspirin [Aspirin BABY CHEW TAB] 81 mg PO QDAY #30 05/25/21 03/31/22 03/28/22 20:00 Rx AtorvaSTATin [Lipitor] 20 mg PO QHS #30 05/25/21 03/31/22 03/28/22 20:00 Rx Chlorthalidone 50 mg PO QDAY #30 05/25/21 03/31/22 03/28/22 20:00 Rx Ferrous Sulfate [Ferrous Sulfate 324 mg PO TID #90 05/25/21 03/31/22 03/28/22 20:00 Rx 324 MG] Folic Acid [Folvite] 1 mg PO QDAY #30 tablet 05/25/21 03/31/22 03/28/22 20:00 Rx Tamsulosin [Flomax] 0.4 mg PO QDAY #30 cap 05/25/21 03/31/22 03/28/22 20:00 Rx Thiamine [Vitamin B-1] 100 mg PO QDAY #30 tablet 05/25/21 03/31/2203/28/22 20:00 Rx amLODIPine 10 mg PO DAILY #30 05/25/21 03/31/22 03/28/22 20:00 Rx ED Physical Exam - General Limitations: Physical Limitation General appearance: alert, in no apparent distress - Head Head exam: Present: atraumatic, normocephalic - Eye Eye exam: Present: normal appearance, EOMI. Absent: nystagmus - ENT ENT exam: Present: normal exam, normal orophraynx, mucous membranes moist, normal external ear exam - Neck Neck exam: Present: normal inspection, full ROM. Absent: tenderness, meningismus - Respiratory Respiratory exam: Present: decreased breath sounds. Absent: respiratory distress, wheezes, rales, rhonchi, stridor - Cardiovascular Cardiovascular Exam: Present: regular rate, normal rhythm, normal heart sounds. Absent: bradycardia, tachycardia, irregular rhythm, systolic murmur, diastolic murmur, rubs, gallop - GI/Abdominal GI/Abdominal exam: Present: soft. Absent: distended, tenderness, guarding, rebound, rigid, pulsatile mass - Rectal Rectal exam: Present: deferred - Extremities Exam Extremities exam: Present: normal inspection, other (2+ pulses noted in the bilateral upper and lower extremities. There is no palpable cord. negative Homans sign. Muscular compartments are soft. The pelvis is stable.). Absent: tenderness, calf tenderness - Back Exam Back exam: Present: normal inspection. Absent: CVA tenderness (R), CVA tenderness (L), paraspinal tenderness, vertebral tenderness - Neurological Exam Neurological exam: Present: alert, other (There is no facial droop. The tongue is midline. EOMI. 5-5 strength in 4 extremities) - Psychiatric Psychiatric exam: Present: anxious. Absent: suicidal ideation - Skin Skin exam: Present: warm, dry, intact, normal color. Absent: rash ED Course Vital Signs 07/04/22 07/04/22 09:38 10:53 Temperature 91.4 F L Pulse Rate 70 Respiratory 14 Rate Blood Pressure 178/84 [Left] O2 Sat by Pulse 98 Oximetry - Reevaluation(s) Reevaluation #1: 07/04/22 13:10 Differential diagnosis, including not limited to: Intracranial injury, cervical spine injury, fall, deconditioning, pneumonia, UTI, electrolyte derangement, thyroid derangement, environmental hyperthermia, dehydration, alcoholic starvation ketosis Assessment and plan: 66-year-old gentleman, found to be hypothermic with a core rectal temperature of 91 degrees, who is awake and alert, moving 4 extremities, Presenting with generalized weakness. He is not encephalopathic. He has no meningeal signs. Patient ruling in for systemic inflammatory response syndrome, manifested by hypothermia, and white blood cell count of 15,000. Uncertain if white blood cell count is a stress reaction. He is also found to have a metabolic acidosis, which I suspect is multifactorial, likely stemming from renal insufficiency, as well as probable alcoholic starvation ketosis. Place patient on radiation monitor. Start appropriate IV fluids, in addition to dextrose infusio and banana bag.n Cover empirically with ceftriaxone. Obtain COVID swab. Obtain x-ray chest, x- ray pelvis. Obtain CT scan brain. Admit patient to the medical service once initial diagnostics have resulted. Patient is awake and alert, asking us to call his , Ms. Crawford. Nursing team called Ms. Crawford, no answer 07/04/22 13:11 07/04/22 13:15 07/04/22 13:54 CT scan brain negative for acute findings. Endorsed to hospital physician, Dr. Hernández. He will assume care 07/04/22 14:28 Patient denies neck pain to myself. He has a chronically stiff neck. He reports that he has had hardware placed in his neck. There is no midline spinal tenderness. There is no redness, pus or streaking. I do not suspect acute surgical pathology clinically in the neck. Patient asking to eat and drink ED Medical Decision Making - Lab Data Result diagrams: 07/04/22 10:46 07/04/22 10:46 Vital Signs 07/04/22 07/04/22 09:38 10:53 Temperature 91.4 F L Pulse Rate 70 Respiratory 14 Rate Blood Pressure 178/84 [Left] O2 Sat by Pulse 98 Oximetry Lab Results 07/04/22 07/04/22 07/04/22 Range/Units 10:46 10:46 10:46 WBC 15.4 H (4.5-11.0) K/mm3 RBC 3.76 (3.65-5.03) M/mm3 Hgb 10.0 L (11.8-15.2) gm/dl Hct 31.6 L (35.5-45.6) % MCV 84 (84-94) fl MCH 27 L (28-32) pg MCHC 32 (32-34) % RDW 14.3 (13.2-15.2) % Plt Count 155 (140-440) K/mm3 Lymph % (Auto) 3.7 L (13.4-35.0) % Bullitt % (Auto) 10.0 H (0.0-7.3) % Eos % (Auto) 0.0 (0.0-4.3) % Baso % (Auto) 0.5 (0.0-1.8) % Lymph # (Auto) 0.6 L (1.2-5.4) K/mm3 Bullitt # (Auto) 1.5 H (0.0-0.8) K/mm3 Eos # (Auto) 0.0 (0.0-0.4) K/mm3 Baso # (Auto) 0.1 (0.0-0.1) K/mm3 Seg Neutrophils % 85.8 H (40.0-70.0) % Seg Neutrophils # 13.2 H (1.8-7.7) K/mm3 PT 13.5 (12.2-14.9) Sec. INR 0.93 (0.87-1.13) APTT 34.8 (24.2-36.6) Sec. Sodium 134 L (137-145) mmol/L Potassium 5.5 H (3.6-5.0) mmol/L Chloride 94.2 L (98-107) mmol/L Carbon Dioxide 12 L (22-30) mmol/L Anion Gap 33 mmol/L BUN 64 H (9-20) mg/dL Creatinine 3.0 H (0.8-1.3) mg/dL Estimated GFR 26 ml/min BUN/Creatinine Ratio 21 % Glucose 142 H (75-100) mg/dL Calcium 8.9 (8.4-10.2) mg/dL Magnesium (1.7-2.3) mg/dL Total Bilirubin 0.30 (0.1-1.2) mg/dL AST 118 H (5-40) units/L ALT 42 (7-56) units/L Alkaline Phosphatase 96 (35-129) units/L Total Creatine Kinase (55-170) units/L Total Protein 7.4 (6.3-8.2) g/dL Albumin 4.4 (3.9-5) g/dL Albumin/Globulin Ratio 1.5 % Salicylates (2.8-20.0) mg/dL Acetaminophen (10.0-30.0) ug/mL Plasma/Serum Alcohol (0-0.07) % 07/04/22 07/04/22 07/04/22 Range/Units 10:46 10:46 10:46 WBC (4.5-11.0) K/mm3 RBC (3.65-5.03) M/mm3 Hgb (11.8-15.2) gm/dl Hct (35.5-45.6) % MCV (84-94) fl MCH (28-32) pg MCHC (32-34) % RDW (13.2-15.2) % Plt Count (140-440) K/mm3 Lymph % (Auto) (13.4-35.0) % Bullitt % (Auto) (0.0-7.3) % Eos % (Auto) (0.0-4.3) % Baso % (Auto) (0.0-1.8) % Lymph # (Auto) (1.2-5.4) K/mm3 Bullitt # (Auto) (0.0-0.8) K/mm3 Eos # (Auto) (0.0-0.4) K/mm3 Baso # (Auto) (0.0-0.1) K/mm3 Seg Neutrophils % (40.0-70.0) % Seg Neutrophils # (1.8-7.7) K/mm3 PT (12.2-14.9) Sec. INR (0.87-1.13) APTT (24.2-36.6) Sec. Sodium (137-145) mmol/L Potassium (3.6-5.0) mmol/L Chloride (98-107) mmol/L Carbon Dioxide (22-30) mmol/L Anion Gap mmol/L BUN (9-20) mg/dL Creatinine (0.8-1.3) mg/dL Estimated GFR ml/min BUN/Creatinine Ratio % Glucose (75-100) mg/dL Calcium (8.4-10.2) mg/dL Magnesium 1.60 L (1.7-2.3) mg/dL Total Bilirubin (0.1-1.2) mg/dL AST (5-40) units/L ALT (7-56) units/L Alkaline Phosphatase (35-129) units/L Total Creatine Kinase 667 H (55-170) units/L Total Protein (6.3-8.2) g/dL Albumin (3.9-5) g/dL Albumin/Globulin Ratio % Salicylates < 0.3 L (2.8-20.0) mg/dL Acetaminophen (10.0-30.0) ug/mL Plasma/Serum Alcohol < 0.01 (0-0.07) % 07/04/22 Range/Units 10:46 WBC (4.5-11.0) K/mm3 RBC (3.65-5.03) M/mm3 Hgb (11.8-15.2) gm/dl Hct (35.5-45.6) % MCV (84-94) fl MCH (28-32) pg MCHC (32-34) % RDW (13.2-15.2) % Plt Count (140-440) K/mm3 Lymph % (Auto) (13.4-35.0) % Bullitt % (Auto) (0.0-7.3) % Eos % (Auto) (0.0-4.3) % Baso % (Auto) (0.0-1.8) % Lymph # (Auto) (1.2-5.4) K/mm3 Bullitt # (Auto) (0.0-0.8) K/mm3 Eos # (Auto) (0.0-0.4) K/mm3 Baso # (Auto) (0.0-0.1) K/mm3 Seg Neutrophils % (40.0-70.0) % Seg Neutrophils # (1.8-7.7) K/mm3 PT (12.2-14.9) Sec. INR (0.87-1.13) APTT (24.2-36.6) Sec. Sodium (137-145) mmol/L Potassium (3.6-5.0) mmol/L Chloride (98-107) mmol/L Carbon Dioxide (22-30) mmol/L Anion Gap mmol/L BUN (9-20) mg/dL Creatinine (0.8-1.3) mg/dL Estimated GFR ml/min BUN/Creatinine Ratio % Glucose (75-100) mg/dL Calcium (8.4-10.2) mg/dL Magnesium (1.7-2.3) mg/dL Total Bilirubin (0.1-1.2) mg/dL AST (5-40) units/L ALT (7-56) units/L Alkaline Phosphatase (35-129) units/L Total Creatine Kinase (55-170) units/L Total Protein (6.3-8.2) g/dL Albumin (3.9-5) g/dL Albumin/Globulin Ratio % Salicylates (2.8-20.0) mg/dL Acetaminophen 5.0 L (10.0-30.0) ug/mL Plasma/Serum Alcohol (0-0.07) % - Radiology Data Radiology results: report reviewed, image reviewed PELVIS ONE VIEW INDICATION / CLINICAL INFORMATION: fall weak. COMPARISON: 10/16/2018. FINDINGS: BONES / JOINT(S): No acute fracture or subluxation. Underlying osteopenia. Extensive heterotopic bone remains at the right hip. SOFT TISSUES: No significant abnormality. ADDITIONAL FINDINGS: None. Signer Name: Baljit Caldwell MD Signed: 07/04/2022 12:12 PM Workstation Name: [email or web address] [email or web address] [email or web address] 07/04/2022 12:04 PM INDICATION / CLINICAL INFORMATION: fall weakne ss. COMPARISON: 03/28/2022 FINDINGS: SUPPORT DEVICES: None. HEART / MEDIASTINUM: No significant abnormality. LUNGS / PLEURA: No acute findings. Stable hyperexpansion. No pneumothorax. ADDITIONAL FINDINGS: No significant additional findings. IMPRESSION: 1. No acute findings. Signer Name: Richard Martinez MD Signed: 07/04/2022 12:08 PM Workstation Name: [id number] CT head/brain wo con INDICATION / CLINICAL INFORMATION: 66 years Male; Alcohol Intoxication. TECHNIQUE: Routine CT head without contrast. All CT scans at this location are performed using CT dose reduction for ALARA by means of automated exposure control. COMPARISON: The study is compared to the previous CT of 05/23/2021. FINDINGS: BRAIN / INTRACRANIAL CONTENTS: The motion and positioning degrade the image quality. However, there appears be continued moderate cerebral white matter disease most consistent with microvascular angiopathy. Is also mild cerebral atrophy. The ventricular system remains unchanged in size and configuration. There is no gross CT evidence of interval developing acute intracranial hemorrhage or significant mass effect from 05/23/2021. ORBITS: No significant abnormality of visualized orbits. SINUSES / MASTOIDS: No significant abnormality in the visualized paranasal sinuses or mastoid air cells. CRANIOCERVICAL JUNCTION: No significant abnormality. ADDITIONAL FINDINGS: None. IMPRESSION: 1. The study is limited by motion. However, this continued microvascular angiopathy and cerebral atrophy without gross CT evidence of acute intracranial hemorrhage. Signer Name: Jose Angel Ortiz MD Signed: 07/04/2022 12:46 PM Workstation Name: [id number] Critical care attestation.: If time is entered above; I have spent that time in minutes in the direct care of this critically ill patient, excluding procedure time. ED Disposition Clinical Impression: Metabolic acidosis, Acute kidney injury (JUAN) with acute tubular necrosis (ATN), Alcohol abuse, SIRS (systemic inflammatory response syndrome), Malnutrition, Hypomagnesemia Disposition: 09 ADMITTED INPATIENT Is pt being admited?: Yes Does the pt Need Aspirin: No Condition: Fair
[2022-07-04 11:25] LABS: Basophils # (Auto) 0.1 K/mm3 (0.0-0.1); Basophils % (Auto) 0.5 % (0.0-1.8); Hematocrit 31.6 % (35.5-45.6); Lymphocytes # (Auto) 0.6 K/mm3 (1.2-5.4); Lymphocytes % (Auto) 3.7 % (13.4-35.0); Mean Corpuscular HGB Conc 32 % (32-34); Mean Corpuscular Volume 84 fl (84-94); Monocytes # (Auto) 1.5 K/mm3 (0.0-0.8); Platelet Count 155 K/mm3 (140-440); Red Blood Count 3.76 M/mm3 (3.65-5.03); Red Cell Distribution Width 14.3 % (13.2-15.2)
[2022-07-04 11:44] LABS: Albumin 4.4 g/dL (3.9-5); Calcium 8.9 mg/dL (8.4-10.2)
[2022-07-04 11:58] LABS: INR 0.93 (0.87-1.13)
[2022-07-04 11:59] LABS: Partial Thromboplastin Time 34.8 Sec. (24.2-36.6)
[2022-07-04] MEDS ORDERED: SODIUM CHLORIDE 0.9% 1000 ML 1,000 ML IV ONE (12:04)
[2022-07-04] MEDS ORDERED: cefTRIAXone/NS 1 GM/50 ML 1 GM/50 ML BAG IV ONE (13:10)
[2022-07-04] MEDS ORDERED: SODIUM CHLORIDE 0.9% IV ONE (13:10)
--- NOTE | 2022-07-04 13:12 | XRay Report ---
CHEST 1 VIEW 07/04/2022 12:04 PM INDICATION / CLINICAL INFORMATION: fall weakness. COMPARISON: 03/28/2022 FINDINGS: SUPPORT DEVICES: None. HEART / MEDIASTINUM: No significant abnormality. LUNGS / PLEURA: No acute findings. Stable hyperexpansion. No pneumothorax. ADDITIONAL FINDINGS: No significant additional findings. IMPRESSION: 1. No acute findings. Signer Name: Richard Martinez MD Signed: 07/04/2022 1:08 PM Workstation Name: [email or web address]
--- NOTE | 2022-07-04 13:16 | XRay Report ---
PELVIS ONE VIEW INDICATION / CLINICAL INFORMATION: fall weak. COMPARISON: 10/16/2018. FINDINGS: BONES / JOINT(S): No acute fracture or subluxation. Underlying osteopenia. Extensive heterotopic bone remains at the right hip. SOFT TISSUES: No significant abnormality. ADDITIONAL FINDINGS: None. Signer Name: Baljit Caldwell MD Signed: 07/04/2022 1:12 PM Workstation Name: [id number]
[2022-07-04 13:26] LABS: Bacteria,Urine 1+ /HPF (Negative); Hyaline Casts,Urine 3 /LPF; Mucus,Urine FEW /HPF; RBC,Urine < 1.0 /HPF (0.0-6.0)
[2022-07-04 13:34] LABS: Amphetamine Screen,Urine PRESUMPTIVE NEGATIVE; Benzodiazepines Screen,Urine PRESUMPTIVE NEGATIVE; Cannabinoid Screen,Urine PRESUMPTIVE NEGATIVE; Cocaine Screen,Urine PRESUMPTIVE NEGATIVE; Creatinine,Urine 220.6 mg/dL (0.1-20.0); Methadone Screen,Urine PRESUMPTIVE NEGATIVE; Opiate Screen,Urine PRESUMPTIVE NEGATIVE
[2022-07-04 13:36] LABS: Color,Urine Yellow (Yellow)
--- NOTE | 2022-07-04 13:50 | Cat Scan Report ---
CT head/brain wo con INDICATION / CLINICAL INFORMATION: 66 years Male; Alcohol Intoxication. TECHNIQUE: Routine CT head without contrast. All CT scans at this location are performed using CT dos e reduction for ALARA by means of automated exposure control. COMPARISON: The study is compared to the previous CT of 05/23/2021. FINDINGS: BRAIN / INTRACRANIAL CONTENTS: The motion and positioning degrade the image quality. However, there a ppears be continued moderate cerebral white matter disease most consistent with microvascular angiopa thy. Is also mild cerebral atrophy. The ventricular system remains unchanged in size and configuratio n. There is no gross CT evidence of interval developing acute intracranial hemorrhage or significant mass effect from 05/23/2021. ORBITS: No significant abnormality of visualized orbits. SINUSES / MASTOIDS: No significant abnormality in the visualized paranasal sinuses or mastoid air lynette ls. CRANIOCERVICAL JUNCTION: No significant abnormality. ADDITIONAL FINDINGS: None. IMPRESSION: 1. The study is limited by motion. However, this continued microvascular angiopathy and cerebral atro phy without gross CT evidence of acute intracranial hemorrhage. Signer Name: Jose Angel Ortiz MD Signed: 07/04/2022 1:46 PM Workstation Name: [id number]
--- NOTE | 2022-07-04 13:55 | History and Physical Report ---
History of Present Illness Chief complaint: I will know what happened History of present illness: 66 YO Male with ETOH Dependence, COPD, BPH, Nicotine Dependence, CVA with RHP, HTN presents to ED for evaluation. Patient is confused and lethargic at time of my evaluation and is unable to provide detailed history. Patient provides only minimal history. Patient reports "I woke up on the ground". Additional history provided by EMS staff, as well as ED staff. EMS was notified by yeimy Manuel after the patient was found down on the ground and appeared intoxicated. EMS was notified and upon arrival the patient was found down, and in distress with presumed alcohol intoxication. The patient was subsequently transported to [facility] for further care and evaluation of the aforementioned symptoms. The patient was seen and evaluated in the emergency department. All lab and imaging studies reviewed. The patient is tremulous and agitated on exam with diminished cognition and lethargy. Pt found to be hypothermic with a body core temperature of 91 F with symptoms consistent with alcohol withdrawal, systemic inflammatory response syndrome, hyponatremia, metabolic acidosis, rhabdomyolysis, hypomagnesemia. Patient also found to have metabolic encephalopathy, malnutrition, as well as acute kidney injury suspected secondary to volume depletion. Patient admitted to IMCU due to increased risk of worsening sympto ms. Patient initiated on alcohol withdrawal protocol and treated with supportive care with IV fluid resuscitation therapy and benzodiazepine therapy. No reports of fever, chills, chest pain, palpitations, productive cough, skin rash, recent ill contact, known exposure to COVID-19. No further history is obtainable from the patient. Advanced care planning conducted in the emergency department. Prior admission on 03/28/2022 reviewed. No medication listed at time of admission for reconciliation. Past History Past Medical History: COPD, hypertension, stroke, other (See HPI) Past Surgical History: Other (Right knee surgery) Social history: single, smoking, alcohol abuse Family history: hypertension Medications and Allergies Allergies Allergy/AdvReac Type Severity Reaction Status Date / Time No Known Allergies Allergy Verified 07/04/22 09:40 Home Medications Medication Instructions Recorded Confirmed Last Taken Type Aspirin [Aspirin BABY CHEW TAB] 81 mg PO QDAY #30 05/25/21 03/31/22 03/28/22 20:00 Rx AtorvaSTATin [Lipitor] 20 mg PO QHS #30 05/25/21 03/31/22 03/28/22 20:00 Rx Chlorthalidone 50 mg PO QDAY #30 05/25/21 03/31/22 03/28/22 20:00 Rx Ferrous Sulfate [Ferrous Sulfate 324 mg PO TID #90 05/25/21 03/31/22 03/28/22 20:00 Rx 324 MG] Folic Acid [Folvite] 1 mg PO QDAY #30 tablet 05/25/21 03/31/22 03/28/22 20:00 Rx Tamsulosin [Flomax] 0.4 mg PO QDAY #30 cap 05/25/21 03/31/22 03/28/22 20:00 Rx Thiamine [Vitamin B-1] 100 mg PO QDAY #30 tablet 05/25/21 03/31/22 03/28/22 20:00 Rx amLODIPine 10 mg PO DAILY #30 05/25/21 03/31/22 03/28/22 20:00 Rx Active Meds: Active Medications Dextrose (Dextrose 50% In Water (25gm) 50 Ml Syringe) 50 ml IV Q30MIN PRN; Protocol PRN Reason: Hypoglycemia Sodium Chloride (Nacl 0.9% 1000 Ml) 2,040 mls @ 999 mls/hr IV BOLUS ONE Stop: 07/04/22 15:12 Thiamine HCl 100 mg/ Folic Acid 1 mg/ Multivitamins/Minerals 10 ml/ Sodium Chloride 1,011.2 mls @ 250 mls/hr IV ONCE ONE Stop: 07/04/22 18:02 Magnesium Oxide (Magnesium Oxide 400 Mg Tab) 400 mg PO QDAY MISHA Review of Systems ROS unobtainable: due to mental status Exam - Constitutional Vitals: Temp Pulse Resp BP Pulse Ox 91.4 F L 70 14 178/84 98 07/04/22 10:53 07/04/22 09:38 07/04/22 09:38 07/04/22 09:38 07/04/22 09:38 General appearance: Present: mild distress, cachectic - EENT Eyes: Present: PERRL ENT: hearing intact, clear oral mucosa - Neck Neck: Present: supple, normal ROM - Respiratory Respiratory effort: normal Respiratory: bilateral: CTA - Cardiovascular Heart Sounds: Present: S1 & S2. Absent: rub, click - Extremities Extremities: pulses symmetrical, No edema Peripheral Pulses: within normal limits - Abdominal General gastrointestinal: Present: soft, non-tender, non-distended, normal bowel sounds Male genitourinary: Present: normal - Integumentary Integumentary: Present: dry, clammy, decreased turgor - Musculoskeletal Musculoskeletal: right sided weakness - Psychiatric Psychiatric: no appropriate mood/affect, no intact judgment & insight, no memory intact - Neurologic Neurologic: CNII-XII intact, no focal deficits, moves all extremities, no gait normal Results - Labs CBC & Chem 7: 07/04/22 10:46 07/04/22 10:46 Labs: Abnormal lab results 07/04/22 07/04/22 07/04/22 Range/Units 10:46 10:46 10:46 WBC 15.4 H (4.5-11.0) K/mm3 Hgb 10.0 L (11.8-15.2) gm/dl Hct 31.6 L (35.5-45.6) % MCH 27 L (28-32) pg Lymph % (Auto) 3.7 L (13.4-35.0) % [place] % (Auto) 10.0 H (0.0-7.3) % Lymph # (Auto) 0.6 L (1.2-5.4) K/mm3 [place] # (Auto) 1.5 H (0.0-0.8) K/mm3 Seg Neutrophils % 85.8 H (40.0-70.0) % Seg Neutrophils # 13.2 H (1.8-7.7) K/mm3 Sodium 134 L (137-145) mmol/L Potassium 5.5 H (3.6-5.0) mmol/L Chloride 94.2 L (98-107) mmol/L Carbon Dioxide 12 L (22-30) mmol/L BUN 64 H (9-20) mg/dL Creatinine 3.0 H (0.8-1.3) mg/dL Glucose 142 H (75-100) mg/dL Magnesium 1.60 L (1.7-2.3) mg/dL AST 118 H (5-40) units/L Total Creatine Kinase 667 H (55-170) units/L Urine Creatinine (0.1-20.0) mg/dL Salicylates (2.8-20.0) mg/dL Acetaminophen (10.0-30.0) ug/mL 07/04/22 07/04/2207/04/22 Range/Units 10:46 10:46 Unknown WBC (4.5-11.0) K/mm3 Hgb (11.8-15.2) gm/dl Hct (35.5-45.6) % MCH (28-32) pg Lymph % (Auto) (13.4-35.0) % [place] % (Auto) (0.0-7.3) % Lymph # (Auto) (1.2-5.4) K/mm3 [place] # (Auto) (0.0-0.8) K/mm3 Seg Neutrophils % (40.0-70.0) % Seg Neutrophils # (1.8-7.7) K/mm3 Sodium (137-145) mmol/L Potassium (3.6-5.0) mmol/L Chloride (98-107) mmol/L Carbon Dioxide (22-30) mmol/L BUN (9-20) mg/dL Creatinine (0.8-1.3) mg/dL Glucose (75-100) mg/dL Magnesium (1.7-2.3) mg/dL AST (5-40) units/L Total Creatine Kinase (55-170) units/L Urine Creatinine 220.6 H (0.1-20.0) mg/dL Salicylates < 0.3 L (2.8-20.0) mg/dL Acetaminophen 5.0 L (10.0-30.0) ug/mL Assessment and Plan - Patient Problems (1) Delirium tremens Current Visit: Yes Status: Acute Plan to address problem: Banana bag, CIWA protocol, IV fluid resuscitation therapy, supportive care (2) Hypothermia Current Visit: Yes Status: Acute Qualifiers: Encounter type: initial encounter Qualified Code(s): T68.XXXA - Hypothermia, initial encounter Plan to address problem: Warming blanket, supportive care, serial physical exam. (3) SIRS (systemic inflammatory response syndrome) Current Visit: Yes Status: Acute Plan to address problem: Empiric IV antibiotic therapy, IV fluid resuscitation therapy, chest x-ray, CBC, urinalysis. Repeat CBC in a.m. (4) Acute kidney injury (JUAN) with acute tubular necrosis (ATN) Current Visit: Yes Status: Acute Plan to address problem: IV fluid resuscitation therapy, BMP, repeat BMP in a.m. to monitor GM par as well as serum creatinine. (5) Hypomagnesemia Current Visit: Yes Status: Acute Plan to address problem: Repleted in ED. (6) Malnutrition Current Visit: Yes Status: Acute Qualifiers: Protein-calorie malnutrition severity: moderate Plan to address problem: Increase protein intake, dietary supplementation when awake and oriented. (7) Hyponatremia syndrome Current Visit: No Status: Acute Plan to address problem: BMP, IV fluid resuscitation therapy with normal saline, repeat BMP in a.m. (8) Metabolic encephalopathy Current Visit: No Status: Acute Plan to address problem: CT head, neuro check, seizure cards, aspiration caution, fall precautions, cheung pportive care. (9) Rhabdomyolysis Current Visit: Yes Status: Acute Qualifiers: Encounter type: initial encounter Plan to address problem: IV fluid resuscitation therapy, CK level, IV bicarbonate therapy. Repeat CK level in AM., (10) DVT prophylaxis Current Visit: Yes Status: Acute Plan to address problem: SCD to bilateral lower extremities while in bed (11) Advance care planning Current Visit: No Status: Acute Plan to address problem: Disease education done, care plan discussed, diagnoses discussed, prognosis discussed, patient is full code, +30 minutes. (12) Preventative health care Current Visit: No Status: Acute Plan to address problem: Patient counseled regarding alcohol cessation, outpatient follow-up with primary care physician for all age and risk factor appropriate screening test. +30 minutes.
[2022-07-04] MEDS ORDERED: ONDANSETRON 4 MG/2 ML INJ IV PRN (14:00)
[2022-07-04] MEDS ORDERED: THIAMINE 100 MG, FOLIC ACID 1 MG, MULTIPLE VITAMIN INJ, ADULT 10 ML in SODIUM CHLORIDE ... IV ONE (14:00)
[2022-07-04] MEDS ORDERED: HYDROmorphone 0.5 MG/0.5 ML INJ IV PRN (14:00)
[2022-07-04] MEDS ORDERED: ALBUTEROL 2.5 MG/3 ML NEBU IH PRN (14:00)
[2022-07-04] MEDS ORDERED: ACETAMINOPHEN 325 MG TAB PO PRN (14:00)
[2022-07-04 14:02] LABS: Osmolality,Urine 376 Mosm/kg
[2022-07-04] MEDS ORDERED: THIAMINE 100 MG TAB PO ONE (14:02)
[2022-07-04] MEDS ORDERED: MULTIVITAMINS ,THERAPEUTIC TAB PO ONE (14:02)
[2022-07-04] MEDS ORDERED: LORazepam 2 MG/ML VIAL IV PRN ×2 (14:02)
--- NOTE | 2022-07-04 14:02 | Cat Scan Report ---
CT cervical spine wo con INDICATION / CLINICAL INFORMATION: 66 years Male; Alcohol Intoxication. TECHNIQUE: Axial CT images of the cervical spine were obtained. Sagittal and coronal reformatted images were pr oduced. All CT scans at this location are performed using CT dose reduction for ALARA by means of aut omated exposure control. COMPARISON: The study is compared to the previous CT of 10/16/2018. FINDINGS: POST-SURGICAL CHANGES: There are notable bony hypertrophic changes along the posterior elements at C5 -6 and C6-7 and correlation would be needed at regarding bone graft. ALIGNMENT: There is mild curvature of the cervical spine, convex toward the right. The motion degrade s image quality. However, there is suggestion of mild anterolisthesis at the C6-7 level though this f inding may be exacerbated by the degree of motion. There are again notable hypertrophic changes along the posterior elements at this level and correlation be needed regarding any previous injury given t he hypertrophic changes. VERTEBRAE: There also appears to be multilevel syndesmophytes involving visualized cervical and upper thoracic spine and correlation be needed regarding ankylosing spondylitis. There is no gross CT evid ence of acute fracture though correlation would be needed given the degree of motion and positioning as well as the parent underlying ankylosing spondylitis. INTRAVERTEBRAL DISCS: The left facet and uncovertebral joint hypertrophy at C3-4 appears result in mo derate left foraminal narrowing at. There is mild right foraminal narrowing at C4-5. There is no clear CT evidence of significant bony stenosis at C5-6. The residual hypertrophic changes at C6-7 appear to result in moderate to marked right neural foraminal narrowing. PARASPINAL SOFT TISSUES: No prevertebral soft tissue fluid collections are appreciated. ADDITIONAL FINDINGS: None. IMPRESSION: 1. The study is limited by motion and positioning. However, the findings be indicative of ankylosing spondylitis as detailed above and correlation would be needed. 2. There appears be mild anterolisthesis at C6-7 which may be exacerbated by the degree of motion. Ad ditionally, there are prominent hypertrophic changes along the posterior elements at this level and C 5-6 findings may be related to previous injury and correlation would be needed. There is no gross danika dence of lucency to indicate acute fracture though correlation would also be needed given the history and degree of motion, particularly if there is no ankylosing spondylitis. Signer Name: Jose Angel Ortiz MD Signed: 07/04/2022 1:57 PM Workstation Name: [id number]
[2022-07-04] MEDS ORDERED: SODIUM BICARB 8.4% 50 MEQ/50 ML SYRINGE IV NR (14:03)
[2022-07-04] MEDS ORDERED: oxyCODONE /ACETAMINOPHEN 5-325MG TAB PO PRN (15:00)
[2022-07-04] MEDS: MAGNESIUM OXIDE 400 MG TAB PO SCH (15:39)
[2022-07-05] MEDS: SODIUM CHLORIDE 0.9% 1000 ML 1,000 ML IV SCH ×2 (02:59→12:41)
[2022-07-05 05:19] LABS: Basophils % (Auto) 0.1 % (0.0-1.8); Hematocrit 28.4 % (35.5-45.6); Hemoglobin 9.3 gm/dl (11.8-15.2); Lymphocytes # (Auto) 0.9 K/mm3 (1.2-5.4); Lymphocytes % (Auto) 7.4 % (13.4-35.0); Mean Corpuscular HGB Conc 33 % (32-34); Mean Corpuscular Volume 80 fl (84-94); Monocytes # (Auto) 0.9 K/mm3 (0.0-0.8); Monocytes % (Auto) 7.4 % (0.0-7.3); Platelet Count 125 K/mm3 (140-440); Red Blood Count 3.56 M/mm3 (3.65-5.03); Red Cell Distribution Width 13.7 % (13.2-15.2)
[2022-07-05] MEDS: MAGNESIUM OXIDE 400 MG TAB PO SCH (10:13)
[2022-07-05] MEDS: MULTIVITAMINS ,THERAPEUTIC TAB PO SCH (10:13)
[2022-07-05] MEDS: FOLIC ACID 1 MG TAB PO SCH (10:13)
--- NOTE | 2022-07-05 11:51 | Progress Note ---
Assessment and Plan Assessment and plan: 66 YO Male with ETOH Dependence, COPD, BPH, Nicotine Dependence, CVA with RHP, HTN presents to ED for evaluation. Patient is confused and lethargic at time of my evaluation and is unable to provide detailed history. Patient provides only minimal history. Patient reports "I woke up on the ground". Additional history provided by EMS staff, as well as ED staff. EMS was notified by yeimy Manuel after the patient was found down on the ground and appeared intoxicated. EMS was notified and upon arrival the patient was found down, and in distress with presumed alcohol intoxication. The patient was subsequently transported to [facility] for further care and evaluation of the aforementioned symptoms. The patient was seen and evaluated in the emergency department. All lab and imaging studies reviewed. The patient is tremulous and agitated on exam with diminished cognition and lethargy. Pt found to be hypothermic with a body core temperature of 91 F with symptoms consistent with alcohol withdrawal, systemic inflammatory response syndrome, hyponatremia, metabolic acidosis, rhabdomyolysis, hypomag nesemia. Patient also found to have metabolic encephalopathy, malnutrition, as well as acute kidney injury suspected secondary to volume depletion. Patient admitted to [facility] due to increased risk of worsening symptoms. Patient initiated on alcohol withdrawal protocol and treated with supportive care with IV fluid resuscitation therapy and benzodiazepine therapy. No reports of fever, chills, chest pain, palpitations, productive cough, skin rash, recent ill contact, known exposure to COVID-19. No further history is obtainable from the patient. Advanced care planning conducted in the emergency department. Prior admission on 03/28/2022 reviewed. No medication listed at time of admission for reconciliation. Past History Past Medical History: COPD, hypertension, stroke, other (See HPI) Past Surgical History: Other (Right knee surgery) Social history: single, smoking, alcohol abuse Family history: hypertension 07/05: Patient this morning are showing improvement. Confusion has improved significantly but not quite at baseline. Still with hyperkalemia renal function is improving but creatinine still 2.5. We will proceed with giving Kayexalate given a bolus of fluid as patient still has hypotension and increase fluid to 150 cc an hour of normal saline. Continue with CIWA protocol. Thiamine and folic acid supplementation. Temperature is improved. We will transfer to the medical floor and if patient is clinically stable in a.m. will discharge. CT of the head reviewed showed no acute intracranial hemorrhage but does show continued microvascular angiopathy. I did have extensive discussion with the patient about tobacco cessation and alcohol use cessation risk and benefits discussed he verbalized understanding. 50 minutes spent on counseling for 8 (1) Delirium tremens secondary to EtOH use disorder Current Visit: Yes Status: Acute Plan to address problem: Banana bag, CIWA protocol, IV fluid resuscitation therapy, supportive care (2) Hypothermia Current Visit: Yes Status: Acute Qualifiers: Encounter type: initial encounter Qualified Code(s): T68.XXXA - Hypothermia, initial encounter Plan to address problem: Warming blanket, supportive care, serial physical exam. (3) SIRS (systemic inflammatory response syndrome) Current Visit: Yes Status: Acute Plan to address problem: Empiric IV antibiotic therapy, IV fluid resuscitation therapy, chest x-ray, CBC, urinalysis. Repeat CBC in a.m. (4) Acute kidney injury (JUAN) with acute tubular necrosis (ATN) Current Visit: Yes Status: Acute Plan to address problem: IV fluid resuscitation therapy, BMP, repeat BMP in a.m. to monitor GM par as wel l as serum creatinine. (5) Hypomagnesemia Current Visit: Yes Status: Acute Plan to address problem: Repleted in ED. (6) Malnutrition Current Visit: Yes Status: Acute Qualifiers: Protein-calorie malnutrition severity: moderate Plan to address problem: Increase protein intake, dietary supplementation when awake and oriented. (7) Hyponatremia syndrome Current Visit: No Status: Acute Plan to address problem: BMP, IV fluid resuscitation therapy with normal saline, repeat BMP in a.m. (8) Metabolic encephalopathy Current Visit: No Status: Acute Plan to address problem: CT head, neuro check, seizure cards, aspiration caution, fall precautions, supportive care. (9) Rhabdomyolysis Current Visit: Yes Status: Acute Qualifiers: Encounter type: initial encounter Plan to address problem: IV fluid resuscitation therapy, CK level, IV bicarbonate therapy. Repeat CK level in AM., (10) tobacco use disorder (11) DVT prophylaxis Current Visit: Yes Status: Acute Plan to address problem: SCD to bilateral lower extremities while in bed (12) Advance care planning Current Visit: No Status: Acute Plan to address problem: Disease education done, care plan discussed, diagnoses discussed, prognosis discussed, patient is full code, +30 minutes. (13) Preventative health care Current Visit: No Status: Acute Plan to address problem: Patient counseled regarding alcohol cessation, outpatient follow-up with primary care physician for all age and risk factor appropriate screening test. +30 minutes. History Interval history: Patient seen and examined this morning no acute distress are noted today. No overnight event reported Hospitalist Physical - Constitutional Vitals: Temp Pulse Resp BP Pulse Ox 98.2 F 64 13 108/57 98 07/05/22 05:29 07/05/22 10:00 07/05/22 10:00 07/05/22 10:00 07/05/22 10:00 General appearance: Present: mild distress, cachectic Results - Labs CBC & Chem 7: 07/05/22 04:44 07/05/22 04:44 Labs: Laboratory Last Values WBC 11.6 K/mm3 (4.5-11.0) H 07/05/22 04:44 RBC 3.56 M/mm3 (3.65-5.03) L 07/05/22 04:44 Hgb 9.3 gm/dl (11.8-15.2) L 07/05/22 04:44 Hct 28.4 % (35.5-45.6) L 07/05/22 04:44 MCV 80 fl (84-94) L 07/05/22 04:44 MCH 26 pg (28-32) L 07/05/22 04:44 MCHC 33 % (32-34) 07/05/22 04:44 RDW 13.7 % (13.2-15.2) 07/05/22 04:44 Plt Count 125 K/mm3 (140-440) L 07/05/22 04:44 Lymph % (Auto) 7.4 % (13.4-35.0) L 07/05/22 04:44 [place] % (Auto) 7.4 % (0.0-7.3) H 07/05/22 04:44 Eos % (Auto) 0.0 % (0.0-4.3) 07/05/22 04:44 Baso % (Auto) 0.1 % (0.0-1.8) 07/05/22 04:44 Lymph # (Auto) 0.9 K/mm3 (1.2-5.4) L 07/05/22 04:44 [place] # (Auto) 0.9 K/mm3 (0.0-0.8) H 07/05/22 04:44 Eos # (Auto) 0.0 K/mm3 (0.0-0.4) 07/05/22 04:44 Baso # (Auto) 0.0 K/mm3 (0.0-0.1) 07/05/22 04:44 Seg Neutrophils % 85.1 % (40.0-70.0) H 07/05/22 04:44 Seg Neutrophils # 9.9 K/mm3 (1.8-7.7) H 07/05/22 04:44 PT 13.5 Sec. (12.2-14.9) 07/04/22 10:46 INR 0.93 (0.87-1.13) 07/04/22 10:46 APTT 34.8 Sec. (24.2-36.6) 07/04/22 10:46 Sodium 138 mmol/L (137-145) 07/05/22 04:44 Potassium 5.6 mmol/L (3.6-5.0) H 07/05/22 04:44 Chloride 102.5 mmol/L (98-107) 07/05/22 04:44 Carbon Dioxide 20 mmol/L (22-30) L D 07/05/22 04:44 Anion Gap 21 mmol/L 07/05/22 04:44 BUN 56 mg/dL (9-20) H 07/05/22 04:44 Creatinine 2.5 mg/dL (0.8-1.3) H 07/05/22 04:44 Estimated GFR 32 ml/min 07/05/22 04:44 BUN/Creatinine Ratio 22 % 07/05/22 04:44 Glucose 93 mg/dL (75-100) 07/05/22 04:44 Lactic Acid 1.60 mmol/L (0.7-2.0) 07/04/22 15:07 Uric Acid 9.1 mg/dL (3.5-7.6) H 07/04/22 13:18 Calcium 8.0 mg/dL (8.4-10.2) L 07/05/22 04:44 Magnesium 1.60 mg/dL (1.7-2.3) L 07/04/22 10:46 Total Bilirubin 0.30 mg/dL (0.1-1.2) 07/04/22 10:46 AST 118 units/L (5-40) H 07/04/22 10:46 ALT 42 units/L (7-56) 07/04/22 10:46 Alkaline Phosphatase 96 units/L (35-129) 07/04/22 10:46 Total Creatine Kinase 667 units/L (55-170) H 07/04/22 10:46 Total Protein 7.4 g/dL (6.3-8.2) 07/04/22 10:46 Albumin 4.4 g/dL (3.9-5) 07/04/22 10:46 Albumin/Globulin Ratio 1.5 % 07/04/22 10:46 TSH 0.234 mlU/mL (0.270-4.200) L 07/04/22 13:18 Urine Color Yellow (Yellow) 07/04/22 Unknown Urine Turbidity Cloudy (Clear) 07/04/22 Unknown Specific [place] (Man) 1.020 (1.003-1.030) 07/04/22 Unknown Ur Protein (Man) 1+ mg/dL (Negative) 07/04/22 Unknown Ur Ketones (Man) Negative (Negative) 07/04/22 Unknown Ur Nitrite (Man) Negative (Negative) 07/04/22 Unknown Ur Reducing Substances Not Reportable 07/04/22 Unknown Urine Bilirubin (Man) Negative (Negative) 07/04/22 Unknown Urine Ictotest Not Reportable 07/04/22 Unknown Leukocyte Esterase (Man) Negative (Negative) 07/04/22 Unknown Urine WBC (Auto) 2.0 /HPF (0.0-6.0) 07/04/22 Unknown Urine RBC (Auto) < 1.0 /HPF (0.0-6.0) 07/04/22 Unknown U Epithel Cells (Auto) 1.0 /HPF (0-13.0) 07/04/22 Unknown Urine Bacteria (Auto) 1+ /HPF (Negative) 07/04/22 Unknown Urine RBC (Manual) Negative (Negative) 07/04/22 Unknown Hyaline Casts 3 /LPF 07/04/22 Unknown Urine Mucus Few /HPF 07/04/22 Unknown Urine Osmolality 376 Mosm/kg 07/04/22 Unknown Urine Creatinine 220.6 mg/dL (0.1-20.0) H 07/04/22 Unknown Urine Sodium 72 mmol/L 07/04/22 Unknown Salicylates < 0.3 mg/dL (2.8-20.0) L 07/04/22 10:46 Urine Opiates Screen Presumptive negative 07/04/22 Unknown Urine Methadone Screen Presumptive negative 07/04/22 Unknown Acetaminophen 5.0 ug/mL (10.0-30.0) L 07/04/22 10:46 Ur Barbiturates Screen Presumptive negative 07/04/22 Unknown Ur Phencyclidine Scrn Presumptive negative 07/04/22 Unknown Ur Amphetamines Screen Presumptive negative 07/04/22 Unknown U Benzodiazepines Scrn Presumptive negative 07/04/22 Unknown Urine Cocaine Screen Presumptive negative 07/04/22 Unknown U Marijuana (THC) Screen Presumptive negative 07/04/22 Unknown Drugs of Abuse Note Disclamer 07/04/22 Unknown Plasma/Serum Alcohol < 0.01 % (0-0.07) 07/04/22 10:46 Microbiology: Microbiology 07/04/22 13:18 Peripheral/Venous Blood Culture - Preliminary Culture in Progress 07/04/22 13:18 Peripheral/Venous Blood Culture - Preliminary Culture in Progress Samuels/IV: Voiding Method Urinal Active Medications - Current Medications Current Medications: Generic Name Dose Route Start Last Admin Trade Name Freq PRN Reason Stop Dose Admin Acetaminophen 650 mg 07/04/22 14:00 07/05/22 03:07 Acetaminophen 325 Mg Tab PO 650 mg Q4H PRN Administration Pain MILD(1-3)/Fever >100.5/GENTILE Albuterol 2.5 mg 07/04/22 14:00 Albuterol 2.5 Mg/3 Ml Nebu IH Q4HRT PRN Shortness Of Breath Dextrose 50 ml 07/04/22 10:37 Dextrose 50% In Water (25gm) 50 Ml Syringe IV Q30MIN PRN Hypoglycemia Protocol Folic Acid 1 mg 07/05/22 10:00 07/05/22 10:13 Folic Acid 1 Mg Tab PO 1 mg QDAY MISHA Administration Hydromorphone HCl 0.5 mg 07/04/22 14:00 07/04/22 22:10 Hydromorphone 0.5 Mg/0.5 Ml Inj IV 0.5 mg Q23H PRN Administration Pain , Severe (7-10) Sodium Chloride 1,000 mls @ 150 mls/hr 07/04/22 14:00 07/05/22 02:59 Nacl 0.9% 1000 Ml IV 100 mls/hr DIRECT MISHA Administration Sodium Chloride 1,000 mls @ 999 mls/hr 07/05/22 11:49 Nacl 0.9% 1000 Ml IV 07/05/22 12:49 BOLUS ONE Lorazepam 2 mg 07/04/22 14:02 Lorazepam 2 Mg/Ml Vial IV Q1HR PRN CIWA-Ar 8-15 Lorazepam 4 mg 07/04/22 14:02 Lorazepam 2 Mg/Ml Vial IV Q1HR PRN CIWA-Ar 16-25 Magnesium Oxide 400 mg 07/04/22 13:00 07/05/22 10:13 Magnesium Oxide 400 Mg Tab PO 400 mg QDAY MISHA Administration Multivitamins 1 each 07/05/22 10:00 07/05/22 10:13 Multivitamins ,Therapeutic Tab PO 1 each DAILY MISHA Administration Ondansetron HCl 4 mg 07/04/22 14:00 Ondansetron 4 Mg/2 Ml Inj IV Q8H PRN Nausea And Vomiting Oxycodone/Acetaminophen 1 tab 07/04/22 15:00 07/05/22 03:07 Oxycodone /Acetaminophen 5-325mg Tab PO 1 tab Q16H PRN Administration Pain, Moderate (4-6) Sodium Chloride 10 ml 07/04/22 22:00 07/05/22 10:13 Sodium Chloride 0.9% 10 Ml Flush Syringe IV 10 ml BID MISHA Administration Sodium Chloride 10 ml 07/04/22 14:00 Sodium Chloride 0.9% 10 Ml Flush Syringe IV PRN PRN LINE FLUSH Sodium Polystyrene Sulfonate 30 gm 07/05/22 11:50 Sodium Polystyrene 15 Gm/60 Ml Oral Liqd PO 07/05/22 11:51 ONCE ONE
[2022-07-05] MEDS ORDERED: SODIUM POLYSTYRENE 15 GM/60 ML ORAL LIQD PO NR (12:30)
[2022-07-05] MEDS ORDERED: SODIUM CHLORIDE 0.9% 1000 ML 1,000 ML IV ONE (12:30)
[2022-07-06 04:23] VITALS: BP 151/83
--- NOTE | 2022-07-06 08:27 | Discharge Summary ---
Providers - Providers Date of Admission: 07/04/22 13:58 Attending physician: LILIANA HSIEH MD 07/05/22 02:54 Consult to Dietitian/Nutrition [CONS] Routine Physician Instructions: Reason For Exam: Reason for Consult: Malnutrition Primary care physician: GYNAECOLOGICAL ONCOLOGIST Hospitalization Reason for admission: Delirium tremens Condition: Fair Hospital course: 66 YO Male with ETOH Dependence, COPD, BPH, Nicotine Dependence, CVA with RHP, HTN presents to ED for evaluation. Patient is confused and lethargic at time of my evaluation and is unable to provide detailed history. Patient provides only minimal history. Patient reports "I woke up on the ground". Additional history provided by EMS staff, as well as ED staff. EMS was notified by yeimy Manuel after the patient was found down on the ground and appeared intoxicated. EMS was notified and upon arrival the patient was found down, and in distress with presumed alcohol intoxication. The patient was subsequently transported to [facility] for further care and evaluation of the aforementioned symptoms. The patient was seen and evaluated in the emergency department. All lab and imaging studies reviewed. The patient is tremulous and agitated on exam with diminished cognition and lethargy. Pt found to be hypothermic with a body core temperature of 91 F with symptoms consistent with alcohol withdrawal, systemic inflammatory response syndrome, hyponatremia, metabolic acidosis, rhabdomyolysis, hypomagnesemia. Patient also found to have metabolic encephalopathy, malnutrition, as well as acute kidney injury suspected secondary to volume depletion. Patient admitted to [facility] due to increased risk of worsening symptoms. Patient initiated on alcohol withdrawal protocol and treated with supportive care with IV fluid resuscitation therapy and benzodiazepine therapy. No reports of fever, chills, chest pain, palpitations, productive cough, skin rash, recent ill contact, known exposure to COVID-19. No further history is obtainable from the patient. Advanced care planning conducted in the emergency department. Prior admission on 03/28/2022 reviewed. No medication listed at time of admission for reconciliation. Past History Past Medical History: COPD, hypertension, stroke, other (See HPI) Past Surgical History: Other (Right knee surgery) Social history: single, smoking, alcohol abuse Family history: hypertension 07/05: Patient this morning are showing improvement. Confusion has improved significantly but not quite at baseline. Still with hyperkalemia renal function is improving but creatinine still 2.5. We will proceed with giving Kayexalate given a bolus of fluid as patient still has hypotension and increase fluid to 150 cc an hour of normal saline. Continue with CIWA protocol. Thiamine and folic acid supplementation. Temperature is improved. We will transfer to the medical floor and if patient is clinically stable in a.m. will discharge. CT of the head reviewed showed no acute intracranial hemorrhage but does show continued microvascular angiopathy. I did have extensive discussion with the patient about tobacco cessation and alcohol use cessation risk and benefits discussed he verbalized understanding. 15 minutes spent on counseling for Tobacco and etoh 07/06: Patient seen and examined, sitting up fully dressed and anxiouse to be discharge, advised him that he needed to wait for his labs to ensure total completion and improvement of his renal function he stated that he had waited extensively and since he has not seen that done he will be signing out AGAINST MEDICAL ADVICE that he has somewhere to go. He did not have any tremor at this time. I did provide extensive counseling on need to follow-up with nephrology to make sure that his renal function is improving as the of not following up includes end-stage renal disease and ending up on dialysis. He verbalized understanding he also) understand the need to quit alcohol and tobacco use. He does have a noted subdued TSH. Free T4 was also ordered which he did not wait for. Probably has either hypothyroidism or subclinical hypothyroidism unfortunately I am unable to tell considering his cachexia BMI 15.3 this may prove to be significant and I advised him to follow-up with his primary doctor for this. (1) Delirium tremens secondary to EtOH use disorder Current Visit: Yes Status: Acute Plan to address problem: Banana bag, CIWA protocol, IV fluid resuscitation therapy, supportive care (2) Hypothermia Current Visit: Yes Status: Acute Qualifiers: Encounter type: initial encounter Qualified Code(s): T68.XXXA - Hy pothermia, initial encounter Plan to address problem: Warming blanket, supportive care, serial physical exam. (3) SIRS (systemic inflammatory response syndrome) Current Visit: Yes Status: Acute Plan to address problem: Empiric IV antibiotic therapy, IV fluid resuscitation therapy, chest x-ray, CBC, urinalysis. Repeat CBC in a.m. (4) Acute kidney injury (JUAN) with acute tubular necrosis (ATN) Current Visit: Yes Status: Acute Plan to address problem: IV fluid resuscitation therapy, BMP, repeat BMP in a.m. to monitor GM par as well as serum creatinine. (5) Hypomagnesemia Current Visit: Yes Status: Acute Plan to address problem: Repleted in ED. (6) Malnutrition Current Visit: Yes Status: Acute Qualifiers: Protein-calorie malnutrition severity: moderate Plan to address problem: Increase protein intake, dietary supplementation when awake and oriented. (7) Hyponatremia syndrome Current Visit: No Status: Acute Plan to address problem: BMP, IV fluid resuscitation therapy with normal saline, repeat BMP in a.m. (8) Metabolic encephalopathy Current Visit: No Status: Acute Plan to address problem: CT head, neuro check, seizure cards, aspiration caution, fall precautions, supportive care. (9) Rhabdomyolysis Current Visit: Yes Status: Acute Qualifiers: Encounter type: initial encounter Plan to address problem: IV fluid resuscitation therapy, CK level, IV bicarbonate therapy. Repeat CK level in AM., (10) tobacco use disorder (11) Cachexia with Hyperthyrdoisim ? Disposition: LEFT AGAINST MEDICAL ADVICE Final Discharge Diagnosis (Prints w/discharge instructions): (1) Delirium tremens secondary to EtOH use disorder. (2) Hypothermia. (3) SIRS (systemic inflammatory response syndrome). (4) Acute kidney injury (JUAN) with acute tubular necrosis (ATN). Acute metabolic encephalopathy secondary to alcohol use disorder Time spent for discharge: 35 Core Measure Documentation - Palliative Care Palliative Care/ Comfort Measures: Not Applicable - Core Measures Any of the following diagnoses?: none Exam - Physical Exam Narrative exam: VITAL SIGNS: Reviewed. GENERAL: The patient appears markedly cachectic vital signs as documented. HEAD: No signs of head trauma. EYES: Pupils are equal. Extraocular motions intact. EARS: Hearing grossly intact. MOUTH: Oropharynx is normal. NECK: No adenopathy, no JVD. CHEST: Chest with clear breath sounds bilaterally. No wheezes, rales, or rhonchi. CARDIAC: Regular rate and rhythm. S1 and S2, without murmurs, gallops, or rubs. VASCULAR: No Edema. Peripheral pulses normal and equal in all extremities. ABDOMEN: Soft, non tender and non distended. No rebound or guarding, and no masses palpated. Bowel Sounds normal. MUSCULOSKELETAL: Good range of motion of all major joints. Extremities without clubbing, cyanosis or edema. NEUROLOGIC EXAM: Alert and oriented x 3 No focal sensory or strength deficits. Speech normal. Follows commands. PSYCHIATRIC: Mood normal. SKIN: detail exam as documented in skin assessment - Constitutional Vitals: Temp Pulse Resp BP Pulse Ox 99.1 F 80 18 151/83 97 07/06/22 04:06 07/06/22 04:06 07/06/22 04:06 07/06/22 04:06 07/06/22 04:06 Plan Activity: advance as tolerated, fall precautions Diet: renal Special Instructions: record daily weights, record daily BP diary Follow up with: [facility] [Referring] - 7 Days ISATU BLANCO MD [Staff Physician] - 7 Days Prescriptions: Folic Acid [Folvite] 1 mg PO QDAY #30 tablet Multivitamin Tab [Multiple Vitamin TAB (Theragran)] 1 each PO DAILY #30 tablet Thiamine [Vitamin B-1] 100 mg PO QDAY #30 tablet
[2022-07-06] MEDS: MULTIVITAMINS ,THERAPEUTIC TAB PO SCH (09:59)
[2022-07-06] MEDS: MAGNESIUM OXIDE 400 MG TAB PO SCH (09:59)
[2022-07-06] MEDS: FOLIC ACID 1 MG TAB PO SCH (09:59)
--- NOTE | 2022-07-06 13:32 | Electrocardiograph Report ---
[facility] Test Date: 2022-07-05 Test Time: 08:19:26 Pat Name: ROXI MURILLO Department: Room: A374 Gender: M [employer]: MARCOS : 1955 Requested By: BAHMAN HADDAD Order Number: [id number] Reading MD: Yenni Caputo Measurements Intervals [place] Rate: 63 P: 72 AR: 171 QRS: 75 QRSD: 81 T: 87 QT: 435 QTc: 448 Interpretive Statements Sinus rhythm Consider left ventricular hypertrophy Compared to ECG 03/28/2022 09:15:38 No significant change Electronically Signed On 07-06-2022 13:32:13 EDT by Yenni Caputo
== END 2022-07-06 11:50 | disposition left against medical advice (07) | DRG 70 ==
LOC: ED 09:32 → IMCU 13:58 → 3A 07-05 21:56
PROVIDERS: ADMIT Internal Medicine; ATTEND Internal Medicine
DX: G93.41 Metabolic encephalopathy (principal); N17.0 Acute kidney failure with tubular necrosis; R65.10 Systemic inflammatory response syndrome (SIRS) of non-infectious origin without acute organ dysfunction; E87.1 Hypo-osmolality and hyponatremia; E44.0 Moderate protein-calorie malnutrition; Z68.1 Body mass index [BMI] 19.9 or less, adult; M62.82 Rhabdomyolysis; I69.351 Hemiplegia and hemiparesis following cerebral infarction affecting right dominant side; Z20.822 Contact with and (suspected) exposure to COVID-19; E83.42 Hypomagnesemia; J44.9 Chronic obstructive pulmonary disease, unspecified; I25.2 Old myocardial infarction; Z53.29 Procedure and treatment not carried out because of patient's decision for other reasons; F17.200 Nicotine dependence, unspecified, uncomplicated; Z79.82 Long term (current) use of aspirin; Y90.9 Presence of alcohol in blood, level not specified; N40.0 Benign prostatic hyperplasia without lower urinary tract symptoms; F10.20 Alcohol dependence, uncomplicated; Z82.49 Family history of ischemic heart disease and other diseases of the circulatory system; R68.0 Hypothermia, not associated with low environmental temperature; Z72.89 Other problems related to lifestyle
CPT/HCPCS: 36415; 70450; 71045; 72125; 72170; 80048; 80053; 80307; 80320; 81001; 82140; 82550; 82570; 83735; 83935; 84300; 84443; 84550; 85025; 85610; 85730; 87040; 87641; 93005; G0378; J3490; G0480; J0696; J1170; J3411; J7030; U0003